=== PATIENT | male | born 1930 | race Caucasian/White ===

== ENCOUNTER 2016-12-11 11:27 | Inpatient (IN) | payer MEDICARE ==
[2016-12-11] MEDS ORDERED: NS 0.9% 1000 ML* 1,000 ML IV ONE ×2 (11:43→14:02)
[2016-12-11 12:11] LABS: Hematocrit 40 % (42-52); Hemoglobin 13.3 g/dl (14.0-18.0); Mean Corpuscular HGB Conc 33 g/dl (31-36); Mean Corpuscular Hemoglobin 29 pg (27-31); Mean Corpuscular Volume 89 fL (80-94); Mean Platelet Volume 8 um3 (7.4-10.4); Red Blood Count 4.54 10^6/ul (4.0-5.4); Red Cell Distribution Width 14 % (10.5-15); White Blood Count 19.5 10^3/ul (3.5-10.8)
[2016-12-11 12:26] LABS: Albumin 3.6 g/dL (3.2-5.2); BUN/Creatinine Ratio 16.1 (8-20); Calcium 8.4 mg/dL (8.6-10.3); EGFR African American 71.1 (>60); EGFR Non-African American 55.3 (>60); Globulin 2.9 g/dL (2-4); Potassium 3.6 mmol/L (3.5-5.0); Total Bilirubin 0.9 mg/dL (0.2-1.0); Total Protein 6.5 g/dL (6.4-8.9)
[2016-12-11 12:28] LABS: Troponin I 0.03 ng/mL (<0.04)
[2016-12-11 12:37] LABS: Add Diff/Slide Review? Slide Review Added; Comments Flag Yes
[2016-12-11 12:44] LABS: TSH (Thyroid Stimulating Horm) 1.18 mcIU/mL (0.34-5.60)
--- NOTE | 2016-12-11 13:35 | RAD ---
Indication: Confusion. CT of the brain was performed without IV contrast. Comparison is made with previous exam dated December 05, 2015. Ventricular structures are midline. No midline shift is noted. The extra-axial spaces are unremarkable. There is no evidence of intracranial mass or hemorrhage. No other high or low density lesions are identified. Periventricular lucency consistent with chronic ischemic White matter change is noted. No changes noted since December 05, 2015. IMPRESSION: Periventricular lucency consistent with chronic ischemic change. Age-appropriate atrophy. No intracranial mass or hemorrhage is noted.
--- NOTE | 2016-12-11 13:50 | RAD ---
Indication: Confusion and fever. Single frontal view of the chest performed at 1200 hours was reviewed. Comparison is made with previous exam dated June 02, 2016. Bibasilar infiltrate which may represent early pneumonia. No pneumothorax is noted. IMPRESSION: FINDINGS CONSISTENT WITH BIBASILAR EARLY PNEUMONIA.
[2016-12-11 14:13] LABS: Urine Bilirubin Negative (Negative); Urine Glucose Negative (Negative); Urine Nitrite Negative (Negative)
[2016-12-11] MEDS ORDERED: Levofloxacin 750 MG IVPREMIX(* 750 MG/150 ML BAG IVPB ONE (15:10)
[2016-12-11] MEDS ORDERED: Triamcinolone 0.025% OINT * 15 GM TUBE TOPICAL PRN (17:07)
[2016-12-11] MEDS ORDERED: Acetaminophen TAB* 325 MG PO PRN (17:07)
[2016-12-11] MEDS ORDERED: Dextrose 50% Syringe 50 ML* 25 GM/50 ML SYRINGE IV PUSH PRN (17:08)
[2016-12-11] MEDS: NS 0.9% 1000 ML* 1,000 ML IV SCH (18:00)
--- NOTE | 2016-12-11 18:02 | ED ---
Reynold Hudson Michael, scribed for Patrick Frankel MD on 12/11/16 at 1145 . Altered Mental Status - HPI Summary HPI Summary: 86 y/o male was BIBA to the ED presenting with AMS and a fever with a temperature of 100 per nurse. The pt was more confused today than normal and had an episode of diarrhea this morning. He was brought from [place]. The pt is a level 5 caveat. - History Of Current Complaint Chief Complaint: EDAltMentalStatus Stated Complaint: AMS Time Seen by Provider: 12/11/16 11:37 Hx Obtained From: EMS, Medical Records Hx From Patient Unobtainable Due To: Dementia Onset/Duration: Unknown Timing: Constant Severity Initially: Mild Severity Currently: Mild Character: Confusion Aggravating Factor(s): Unknown Alleviating Factor(s): Unknown Associated Signs And Symptoms: Positive: Fever - Allergies/Home Medications Allergies/Adverse Reactions: Allergies Allergy/AdvReac Type Severity Reaction Status Date / Time Lisinopril AdvReac Mild Coughing Verified 12/05/15 08:32 PMH/Surg Hx/FS Hx/Imm Hx Endocrine/Hematology History: Reports: Hx Diabetes Cardiovascular History: Reports: Hx Hypertension Denies: Hx Pacemaker/ICD History: Reports: Other Problems/Disorders - prostate ca, radiation Musculoskeletal History: Reports: Hx Back Problems - Fusion L4-S1, Other Musculoskeletal History - L total knee replacemtn, fusion S1, L4, L5 Denies: Hx Scoliosis Sensory History: Denies: Hx Hearing Aid Neurological History: Reports: Hx Dementia Psychiatric History: Reports: Other Psychiatric Issues/Disorders - alzheimers Denies: Hx Panic Disorder - Cancer History Cancer Type, 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 - Surgical History Surgery Procedure, Year, and Place: bilat knee replacements, back surgery L4- 5S1 fused, tonsillectomy, prostatectomy Infectious Disease History: No Infectious Disease History: Denies: Traveled Outside the [place] in Last 30 Days - Family History Known Family History: Positive: Cardiac Disease, Diabetes - Social History Occupation: Retired Lives: At [facility] Alcohol Use: None Substance Use Type: Reports: None Smoking Status (MU): Former Smoker Review of Systems - ROS Summary Review of Systems Summary: Patient is a level 5 caveat Positive: Fever Neurological: Other - AMS All Other Systems Reviewed And Are Negative: No Physical Exam - Summary Physical Exam Summary: Vital signs: reviewed General: Patient is comfortable lying in stretcher with no signs of distress HEENT: within normal limits Lungs: CTA B/L CVS: S1 & S2 present. No murmurs appreciated. ABDOMEN: Soft, non-tender. No signs of distention. No rebound no guarding, and no masses palpated. Bowel sounds are normal. EXTREMITIES: FROM in all major joints, no edema, no cyanosis or clubbing. NEURO: Alert but not oriented . No acute neurological deficits. Speech is normal and follows commands. SKIN: Dry and warm Triage Information Reviewed: Yes Vital Signs On Initial Exam: Initial Vitals Temp Pulse Resp BP Pulse Ox 100 F 99 16 104/58 94 12/11/16 11:30 12/11/16 11:30 12/11/16 11:30 12/11/16 11:30 12/11/16 11:30 Vital Signs Reviewed: Yes Completion Of Physical Exam Limited Due To: Dementia, Level 5 - Jaclyn Coma Scale Coma Scale Total: 14 Diagnostics - Vital Signs Vital Signs Temp Pulse Resp BP Pulse Ox 12/11/16 11:30 100 F 99 16 104/58 94 - Laboratory Result Diagrams: 12/11/16 12:02 12/11/16 12:02 Lab Statement: Any lab studies that have been ordered have been reviewed, and results considered in the medical decision making process. - Radiology CXR Xray Interpretation: Positive (See Comments) - FINDINGS CONSISTENT WITH BIBASILAR EARLY PNEUMONIA. Radiology Interpretation Completed By: Radiologist - CT Brain CT CT Interpretation: Positive (See Comments) - Periventricular lucency consistent with chronic ischemic change. Age-appropriate atrophy. No intracranial mass or hemorrhage is noted. CT Interpretation Completed By: Radiologist - EKG EK EKG Rhythm: Sinus Rhythm - 95 bpm EKG Interpretation: no st elevation Altered Mental Statu Course/Dx - Course Course Of Treatment: 86 y/o male was BIBA to the ED presenting with AMS and a fever with a temperature of 100 per nurse. The pt was more confused today than normal and had an episode of diarrhea this morning. He was brought from [place]. The pt is a level 5 caveat. The blood work shows a WBC of 19, BUN 20, glucose 204, slight anemia, and creatinine of 1.24. The Urine Analysis is negative for UTI. The CXR shows bibasilar early PNA. The Brain CT shows no intracrainial mass or hemorrhage. ED course, the paitent was given levofloxacin. In the CURB-65 for PNA the patient scored a 4 which is high risk, so he will be admitted. Dr. Campos accepts the admission at 1604. - Diagnoses Differential Diagnosis/HQI/PQRI: CVA, Other - UTI, CVA, Pneumonia Discharge Diagnoses: Bilateral pneumonia Discharge - Discharge Plan Condition: Stable Disposition: ADMITTED TO [facility] The documentation as recorded by the Reynold velazquez Michael accurately reflects the service I personally performed and the decisions made by , Patrick Frankel MD.
--- NOTE | 2016-12-11 18:49 | HP ---
HISTORY AND PHYSICAL: DATE OF ADMISSION: 12/11/16 PRIMARY CARE PHYSICIAN: Mohinder Ordaz MD CHIEF COMPLAINT: Confusion. HISTORY OF PRESENT ILLNESS: Mr. Snyder is an 86-year-old male with past medical history of Alzheimer's dementia, hypertension, hyperlipidemia, diabetes , TIA, moderate aortic stenosis, and prostate cancer who presents to the hospital from [facility] with increased confusion and fever. Due to the patient's advanced dementia, I am unable to obtain any history from him. History is obtained from nursing and the chart. It seems that the patient has had increased confusion over the past days. His daughter felt that he had been declining and has been more weak. The patient is usually clean shaven and in the past couple of days has been unshaven which is unusual for him. He possibly had a fall today. He denies any complaints presently. He is cooperative but confused. He reports no chest pain, cough, shortness of breath. PAST MEDICAL HISTORY: 1. Dementia. 2. Hypertension. 3. Hyperlipidemia. 4. Diabetes. 5. Prostate cancer. 6. TIA. 7. Moderate aortic stenosis. PAST SURGICAL HISTORY: 1. Left TKA. 2. Back surgery. 3. Tonsillectomy. HOME MEDICATIONS: 1. Losartan 25 mg by mouth daily. 2. Triamcinolone 1 application topical daily as needed for itching. 3. Donepezil 10 mg by mouth at bedtime. 4. Lipitor 10 mg by mouth at bedtime. 5. Tylenol 650 mg by mouth every 6 hours as needed for pain. 6. Docusate 100 mg by mouth daily. 7. Axona 1 powder by mouth daily. 8. Vitamin B12 at 500 mcg by mouth daily. 9. Linagliptin 5 mg by mouth daily. 10. Aspirin 81 mg by mouth daily. ALLERGIES: LISINOPRIL. FAMILY HISTORY: Unable to obtain. SOCIAL HISTORY: Unable to obtain aside from the patient being a resident of [facility]. REVIEW OF SYSTEMS: Unable to obtain. PHYSICAL EXAMINATION GENERAL: The patient is an elderly man lying in bed, in no apparent distress. VITAL SIGNS: On admission, temperature of 100, heart rate of 99, respiratory rate of 16, O2 saturation 94% on room air, blood pressure 104/58 with some subsequent hypertension. HEENT: Pupils equal, round and reactive to light and accommodation, anicteric sclerae. Dry mucous membranes. No cervical adenopathy. LUNGS: Not entirely cooperative with exam. I do appreciate some rales at the bases bilaterally. CARDIOVASCULAR: Regular rate and rhythm. S1 and S2 present. No murmurs, gallops, or rubs. ABDOMEN: Soft, nontender, nondistended. Bowel sounds positive. EXTREMITIES: No cyanosis, clubbing, or edema. NEUROLOGIC: The patient is alert, oriented to self only. Mumbles a lot of answers. Unable to tell me where he is, the year, the month of the day or why he is here. LABS AND DIAGNOSTICS: White blood cell count of 19.5, hematocrit of 40, platelets of 208, 91% neutrophils. Sodium 137, potassium 3.6, chloride 104, carbon dioxide of 24, BUN 20, creatinine of 1.24, glucose of 204, lactic acid of 2.8, calcium of 8.4. LFTs within normal limits. Troponin of 0.03. TSH of 1.18. Urinalysis with 1+ ketones, otherwise negative. CT of the head shows no acute disease. Chest x-ray shows infiltrates in the bilateral bases. Personally reviewed the EKG, shows normal sinus rhythm. ASSESSMENT AND PLAN: Community acquired pneumonia in an 86-year-old male with past medical history of Alzheimer's dementia, hypertension, hyperlipidemia, diabetes, transient ischemic attack, moderate aortic stenosis. 1. Community acquired pneumonia. The patient has a significant leukocytosis. He is not currently requiring any oxygen. However, he has a low-grade fever and is mildly hypotensive. He received Levaquin in the emergency department. We will continue the patient on ceftriaxone and azithromycin. We will check strep and legionella urine antigens. Recheck a CBC in the morning. 2. Dementia. Continue the patient's home donepezil. 3. Hypertension. We will hold home losartan for now. 4. Acute kidney injury. Creatinine is up slightly from patient's baseline. Receiving some IV fluid. We will recheck in the morning. 5. Mild lactic acidosis. We will recheck after IV fluid resuscitation. 6. Hyperlipidemia. Continue home atorvastatin. 7. History of transient ischemic attack. Continue aspirin 81 mg by mouth daily. 8. Diabetes. Hold home linagliptin. We will write for a Humalog insulin sliding scale and blood glucoses q.a.c. and h.s. 9. DVT prophylaxis. Heparin subcu. 10. Code status. The patient has no documentation from [facility]. He will be on full code by default. TIME SPENT: Total time spent on this admission was 40 minutes with over half the time spent [id number] with the patient in counseling and coordinating care. CC: Mohinder Ordaz MD* [id number]/[facility] #: [id number] MTDD
[2016-12-11] MEDS: Donepezil TAB* 5 MG PO SCH (21:54)
[2016-12-11] MEDS: Atorvastatin* 10 MG TAB PO SCH (21:54)
[2016-12-11] MEDS: Heparin VIAL(*) 5000 UNITS/ML VIAL (FIVE THOUSAND) SUBCUT SCH (21:55)
[2016-12-12 06:08] LABS: Hematocrit 36 % (42-52); Mean Corpuscular HGB Conc 33 g/dl (31-36); Mean Corpuscular Hemoglobin 30 pg (27-31); Mean Corpuscular Volume 89 fL (80-94); Mean Platelet Volume 9 um3 (7.4-10.4); Red Blood Count 4.05 10^6/ul (4.0-5.4); Red Cell Distribution Width 14 % (10.5-15); White Blood Count 14.8 10^3/ul (3.5-10.8)
[2016-12-12] MEDS: Heparin VIAL(*) 5000 UNITS/ML VIAL (FIVE THOUSAND) SUBCUT SCH ×3 (06:20→20:46)
[2016-12-12 06:24] LABS: BUN/Creatinine Ratio 17.8 (8-20); Calcium 8.2 mg/dL (8.6-10.3); EGFR African American 102.9 (>60); Potassium 3.7 mmol/L (3.5-5.0)
[2016-12-12] MEDS: Insulin LISPRO* 1 UNITS UNIT SUBCUT SCH ×3 (08:49→17:12)
[2016-12-12] MEDS: Docusate CAP* 100 MG PO SCH (10:04)
[2016-12-12] MEDS: Cyanocobalamin TAB* 500 MCG PO SCH (10:04)
[2016-12-12] MEDS: Aspirin EC Low Dose* 81 MG TAB.EC PO SCH (10:04)
[2016-12-12] MEDS: NS 0.9% 1000 ML* 1,000 ML IV SCH (10:05)
[2016-12-12] MEDS: cefTRIAXone VIAL(*) 1,000 MG in NS 0.9% 50 ML* 50 ML IVPB SCH (17:09)
--- NOTE | 2016-12-12 17:21 | PN ---
Subjective Date of Service: 12/12/16 Interval History: . pt has noted confusion which could be his baseline Alzheimers. He is alert in NAD. Pt eating little for meals. No cough noted. He is noted to have a 101 fever on my exam and when asked if he feels like he has a fever he states 'no". Objective Active Medications: Acetaminophen (Tylenol Tab*) 650 mg PO Q6H PRN PRN Reason: TEMP > 100 or PAIN Aspirin (Aspirin Ec Low Dose*) 81 mg PO DAILY [facility] Last Admin: 12/12/16 10:04 Dose: 81 mg Atorvastatin Calcium (Lipitor*) 10 mg PO BEDTIME [facility] Last Admin: 12/11/16 21:54 Dose: 10 mg Cyanocobalamin (Vitamin B12 Tab*) 500 mcg PO DAILY [facility] Last Admin: 12/12/16 10:04 Dose: 500 mcg Dextrose (D50w Syringe 50 Ml*) 12.5 gm IV PUSH .FOR FS < 60 - SS PRN PRN Reason: FS < 60 Docusate Sodium (Colace Cap*) 100 mg PO DAILY [facility] Last Admin: 12/12/16 10:04 Dose: 100 mg Donepezil HCl (Aricept Tab*) 10 mg PO BEDTIME [facility] Last Admin: 12/11/16 21:54 Dose: 10 mg Heparin Sodium (Porcine) (Heparin Vial(*)) 5,000 units SUBCUT Q8HR [facility] Last Admin: 12/12/16 12:51 Dose: 5,000 units Ceftriaxone Sodium 1,000 mg/ (Sodium Chloride) 50 mls @ 200 mls/hr IVPB Q24H [facility] Last Admin: 12/12/16 17:09 Dose: 200 mls/hr Azithromycin 500 mg/ Sodium (Chloride) 250 mls @ 250 mls/hr IVPB Q24H [facility] Sodium Chloride (Ns 0.9% 1000 Ml*) 1,000 mls @ 75 mls/hr IV PER RATE [facility] Last Admin: 12/12/16 10:05 Dose: 75 mls/hr Insulin Human Lispro (Humalog*) 0 - 10 units SUBCUT AC [facility] PRN Reason: Protocol Last Admin: 12/12/16 17:12 Dose: Not Given Triamcinolone Acetonide (Triamcinolone 0.025% Oint *) 1 applic TOPICAL DAILY PRN PRN Reason: ITCHING Vital Signs 12/11/16 12/11/16 12/11/16 17:17 17:31 18:00 Temperature 99.1 F 98.5 F Pulse Rate 82 92 Respiratory 17 16 Rate Blood Pressure 129/71 107/56 120/57 (mmHg) O2 Sat by Pulse 98 Oximetry 12/11/16 12/11/16 12/11/16 19:58 20:00 22:23 Temperature 97.3 F Pulse Rate 96 Respiratory 16 16 18 Rate Blood Pressure 110/53 (mmHg) O2 Sat by Pulse 94 Oximetry 12/11/16 12/12/16 12/12/16 23:28 03:48 07:38 Temperature 98.2 F 99.2 F 97.9 F Pulse Rate 88 96 97 Respiratory 16 18 16 Rate Blood Pressure 121/58 158/77 145/83 (mmHg) O2 Sat by Pulse 97 94 97 Oximetry 12/12/16 12/12/16 12/12/16 08:00 11:07 14:44 Temperature 100.6 F 100.6 F Pulse Rate 94 92 Respiratory 17 18 Rate Blood Pressure 140/81 (mmHg) O2 Sat by Pulse 95 Oximetry 12/12/16 15:05 Temperature 101.1 F Pulse Rate 93 Respiratory 20 Rate Blood Pressure 151/87 (mmHg) O2 Sat by Pulse 97 Oximetry Oxygen Devices in Use Now: None Appearance: eldelry male laying in bed in NAD. alert to self but not to place or time Eyes: No Scleral Icterus, PERRLA Ears/Nose/Mouth/Throat: NL Teeth, Lips, Gums, Mucous Membranes Moist Neck: NL Appearance and Movements; NL JVP Respiratory: Symmetrical Chest Expansion and Respiratory Effort, - - crackles to bases b/l otherwise good areation throughout Cardiovascular: NL Sounds; No Murmurs; No JVD, RRR, No Edema Abdominal: NL Sounds; No Tenderness; No Distention Extremities: No Edema, No Clubbing, Cyanosis Skin: No Rash or Ulcers, No Nodules or Sclerosis, - Neurological: Alert and Oriented x 3, NL Sensation, NL Gait, NL Muscle Strength and Tone Lines/Tubes/Other Access: Clean, Dry and Intact Peripheral IV Nutrition: Taking PO's Result Diagrams: 12/12/16 05:36 12/12/16 05:36 Microbiology and Other Data: Microbiology 12/11/16 17:10 Legionella Urinary Antigen - Final Urine Negative Legionella Streptococcus pneumoniae Ag Screen - Final Negative S. pneumo Antigen 12/11/16 19:00 Nasal Screen MRSA (PCR)(MONA) - Final Nasal Mrsa Negative Assess/Plan/Problems-Billing Assessment: Mr. Snyder is a 86 yo male with a PMH of alzheimers dementais, HTN , HLD, DM, TIA and moderate who presneted from [facility] with increased confusion and fever. - Patient Problems (1) CAP (community acquired pneumonia) Comment: - sepsis on admission with elevated lactic, leukocytosis, hypotension, AMS,now resolved. - chest xray showing early bibasilar pneumonia - fever 101 today, Leukocytosis trending down. urinalysis negative. lactic acid resolved - negative urine antigens s. pneum and legionella - Sputum and blood cx pending - continue ceftriaxone, gentle IVFs - recheck labs in am (2) Acute kidney injury Comment: - resolved with IV fluids (3) Alzheimer's dementia Comment: - continue aricept (4) Diabetes mellitus Comment: - controlled. - FSBG ACHS with lispro SS (5) HLD (hyperlipidemia) Comment: - continue atorvastatin (6) Hypertension Comment: - hold losartan (7) DVT prophylaxis Comment: HSQ Status and Disposition: inpatient with sepsis secondary to pneumonia. tried to call daughter with no answer, did not leave message as there was noted identifying voicemail.
[2016-12-12] MEDS ORDERED: NS 0.9% 1000 ML* 1,000 ML IV SCH (17:30)
[2016-12-12] MEDS: Azithromycin IV(*) 500 MG in NS 0.9% 250 ML* 250 ML IVPB SCH (17:59)
[2016-12-12] MEDS: Donepezil TAB* 5 MG PO SCH (20:43)
[2016-12-12] MEDS: Atorvastatin* 10 MG TAB PO SCH (20:44)
[2016-12-13] MEDS: Heparin VIAL(*) 5000 UNITS/ML VIAL (FIVE THOUSAND) SUBCUT SCH ×3 (06:01→21:27)
[2016-12-13 07:07] LABS: Hematocrit 36 % (42-52); Mean Corpuscular HGB Conc 34 g/dl (31-36); Mean Corpuscular Hemoglobin 30 pg (27-31); Mean Corpuscular Volume 88 fL (80-94); Mean Platelet Volume 8 um3 (7.4-10.4); Red Blood Count 4.06 10^6/ul (4.0-5.4); Red Cell Distribution Width 14 % (10.5-15); White Blood Count 12.6 10^3/ul (3.5-10.8)
[2016-12-13 07:24] LABS: BUN/Creatinine Ratio 13.5 (8-20); Calcium 8.3 mg/dL (8.6-10.3); EGFR Non-African American 100.3 (>60); Potassium 3.4 mmol/L (3.5-5.0)
[2016-12-13] MEDS: Insulin LISPRO* 1 UNITS UNIT SUBCUT SCH ×3 (07:30→17:40)
[2016-12-13] MEDS ORDERED: Potassium Chlor TAB* 20 MEQ TAB.ER PO ONE (07:45)
[2016-12-13] MEDS: Cyanocobalamin TAB* 500 MCG PO SCH (08:57)
[2016-12-13] MEDS: Docusate CAP* 100 MG PO SCH (08:57)
[2016-12-13] MEDS: Aspirin EC Low Dose* 81 MG TAB.EC PO SCH (08:57)
--- NOTE | 2016-12-13 16:12 | PN ---
Subjective Date of Service: 12/13/16 Interval History: patient reports he "feels fine". noted confusion which is his baseline. Denies cough, sob or CP. Objective Active Medications: Acetaminophen (Tylenol Tab*) 650 mg PO Q6H PRN PRN Reason: TEMP > 100 or PAIN Aspirin (Aspirin Ec Low Dose*) 81 mg PO DAILY [facility] Last Admin: 12/13/16 08:57 Dose: 81 mg Atorvastatin Calcium (Lipitor*) 10 mg PO BEDTIME [facility] Last Admin: 12/12/16 20:44 Dose: 10 mg Cyanocobalamin (Vitamin B12 Tab*) 500 mcg PO DAILY [facility] Last Admin: 12/13/16 08:57 Dose: 500 mcg Dextrose (D50w Syringe 50 Ml*) 12.5 gm IV PUSH .FOR FS < 60 - SS PRN PRN Reason: FS < 60 Docusate Sodium (Colace Cap*) 100 mg PO DAILY [facility] Last Admin: 12/13/16 08:57 Dose: 100 mg Donepezil HCl (Aricept Tab*) 10 mg PO BEDTIME [facility] Last Admin: 12/12/16 20:43 Dose: 10 mg Heparin Sodium (Porcine) (Heparin Vial(*)) 5,000 units SUBCUT Q8HR [facility] Last Admin: 12/13/16 12:38 Dose: 5,000 units Ceftriaxone Sodium 1,000 mg/ (Sodium Chloride) 50 mls @ 200 mls/hr IVPB Q24H [facility] Last Admin: 12/12/16 17:09 Dose: 200 mls/hr Azithromycin 500 mg/ Sodium (Chloride) 250 mls @ 250 mls/hr IVPB Q24H [facility] Last Admin: 12/12/16 17:59 Dose: 250 mls/hr Sodium Chloride (Ns 0.9% 1000 Ml*) 1,000 mls @ 50 mls/hr IV .PER RATE [facility] Last Admin: 12/12/16 18:19 Dose: Not Given Insulin Human Lispro (Humalog*) 0 - 10 units SUBCUT AC [facility] PRN Reason: Protocol Last Admin: 12/13/16 12:38 Dose: 2 units Triamcinolone Acetonide (Triamcinolone 0.025% Oint *) 1 applic TOPICAL DAILY PRN PRN Reason: ITCHING Vital Signs 12/12/16 12/12/16 12/13/16 20:11 23:36 03:24 Temperature 98.0 F 97.9 F Pulse Rate 101 91 Respiratory 16 16 18 Rate Blood Pressure 145/87 179/88 (mmHg) O2 Sat by Pulse 95 93 Oximetry 12/13/16 12/13/16 07:46 08:00 Temperature 97.9 F Pulse Rate 91 Respiratory 16 16 Rate Blood Pressure 137/65 (mmHg) O2 Sat by Pulse 93 Oximetry Oxygen Devices in Use Now: None Appearance: 86 yo male laying in bed in NAD. Confused, noted dementia. alert to self but not to place and time Eyes: No Scleral Icterus, PERRLA Ears/Nose/Mouth/Throat: NL Teeth, Lips, Gums, Mucous Membranes Moist Respiratory: Symmetrical Chest Expansion and Respiratory Effort, Clear to Auscultation Cardiovascular: NL Sounds; No Murmurs; No JVD, RRR, No Edema Abdominal: NL Sounds; No Tenderness; No Distention Extremities: No Edema, No Clubbing, Cyanosis Skin: No Rash or Ulcers, No Nodules or Sclerosis Neurological: NL Sensation, NL Muscle Strength and Tone, - - alert, confused - appears to have significant dementia at baseline Lines/Tubes/Other Access: Clean, Dry and Intact Peripheral IV Nutrition: Taking PO's Result Diagrams: 12/13/16 06:53 12/13/16 06:53 Microbiology and Other Data: Microbiology 12/11/16 17:10 Legionella Urinary Antigen - Final Urine Negative Legionella Streptococcus pneumoniae Ag Screen - Final Negative S. pneumo Antigen 12/11/16 19:00 Nasal Screen MRSA (PCR)(MONA) - Final Nasal Mrsa Negative Assess/Plan/Problems-Billing Assessment: Mr. Snyder is a 86 yo male with a PMH of alzheimers dementais, HTN , HLD, DM, TIA and moderate who presneted from [facility] with increased confusion and fever. - Patient Problems (1) CAP (community acquired pneumonia) Comment: - sepsis on admission with elevated lactic, leukocytosis, hypotension, AMS,now resolved. Much improvement from admisison. Now on room air. - chest xray showing early bibasilar pneumonia. - fevers of 101 now afebrile > 24 hours, Leukocytosis trending down. urinalysis negative. lactic acid resolved - negative urine antigens s. pneum and legionella - Sputum and blood cx pending - PT - continue ceftriaxone, azithromycin - recheck labs in am (2) Acute kidney injury Comment: - resolved with IV fluids (3) Electrolyte abnormality Comment: - Replace K+, check magnesium (4) Alzheimer's dementia Comment: - continue aricept (5) Diabetes mellitus Comment: - controlled. - FSBG ACHS with lispro SS (6) HLD (hyperlipidemia) Comment: - continue atorvastatin (7) Hypertension Comment: - Restart losartan (8) DVT prophylaxis Comment: HSQ Status and Disposition: inpatient with sepsis secondary to pneumonia. tried to call daughter with no answer again today, did not leave message as there was noted identifying voicemail. possibly ready for DC tomorrow.
--- NOTE | 2016-12-13 16:49 | RAD ---
INDICATION: Pneumonia. COMPARISON: Comparison is made with prior checks x-ray studies from June 02, 2016 and December 11, 2016. TECHNIQUE: Dual-energy PA and lateral views of the chest were obtained. FINDINGS: The heart is within normal limits in size. Mediastinal and hilar contours appear within normal limits. There are patchy infiltrates at both lung bases which appear to have progressed slightly from the prior exam. In addition there is a small nodular density which projects over the left upper lobe measuring 3 mm in size which is unchanged from prior studies and 2 faint nodular densities measuring approximately 8 mm in size each which project at the left lung base which are not well seen on the prior exams. IMPRESSION: 1. BIBASILAR INFILTRATES DEMONSTRATING SLIGHT PROGRESSION. 2. POSSIBLE LEFT BASILAR PULMONARY NODULES CONSIDER A NONCONTRAST CT OF THE CHEST FOR FURTHER EVALUATION.
[2016-12-13] MEDS ORDERED: Losartan TAB* 25 MG PO ONE (16:51)
[2016-12-13] MEDS: cefTRIAXone VIAL(*) 1,000 MG in NS 0.9% 50 ML* 50 ML IVPB SCH (17:36)
[2016-12-13] MEDS: Azithromycin IV(*) 500 MG in NS 0.9% 250 ML* 250 ML IVPB SCH (18:08)
[2016-12-13] MEDS: Donepezil TAB* 5 MG PO SCH (21:23)
[2016-12-13] MEDS: Atorvastatin* 10 MG TAB PO SCH (21:23)
[2016-12-14] MEDS: Heparin VIAL(*) 5000 UNITS/ML VIAL (FIVE THOUSAND) SUBCUT SCH ×3 (06:17→20:38)
--- NOTE | 2016-12-14 08:24 | RAD ---
HISTORY: Chest nodule on x-ray COMPARISONS: Chest x-ray dated December 13, 2016, PET/CT dated August 24, 2010 TECHNIQUE: Multiple contiguous axial CT scans of the chest were obtained without intravenous contrast. Coronal and sagittal multiplanar reformations are also submitted for review. FINDINGS: NECK AND THYROID: There is a 0.6 cm nodule of the left thyroid CHEST WALL: There is no lower cervical, axillary, or supraclavicular lymphadenopathy by size criteria. HEART AND PERICARDIUM: Coronary and valvular cardiac calcifications are noted. AORTA AND PULMONARY VASCULATURE: There is calcification of the thoracic aorta. The pulmonary vasculature is unremarkable. MEDIASTINUM: There is no mediastinal lymphadenopathy by size criteria. MIKAYLA: There is no hilar lymphadenopathy by size criteria. AIRWAY AND ESOPHAGUS: The airway is unremarkable, without endobronchial filling defect. The esophagus is grossly normal. LUNG PARENCHYMA: There is patchy nodular ground glass opacification diffusely throughout both lungs, with more confluent opacities in the lung bases bilaterally. There are calcified granulomas bilaterally. PLEURA: There are trace bilateral pleural effusions UPPER ABDOMEN: The upper abdomen is unremarkable. BONES AND SOFT TISSUES: Mild degenerative changes are noted OTHER: None. IMPRESSION: THERE IS PATCHY MULTIFOCAL AND CONFLUENT GROUNDGLASS OPACIFICATION AND CONSOLIDATION OF THE LUNGS BILATERALLY. THE APPEARANCE IS SUGGESTIVE OF AN INFECTIOUS OR INFLAMMATORY PROCESS. RECOMMEND FOLLOW-UP UNTIL RESOLUTION TO EXCLUDE UNDERLYING PULMONARY PARENCHYMAL PATHOLOGY
[2016-12-14] MEDS: Losartan TAB* 25 MG PO SCH (08:52)
[2016-12-14] MEDS: Docusate CAP* 100 MG PO SCH (08:52)
[2016-12-14] MEDS: Aspirin EC Low Dose* 81 MG TAB.EC PO SCH (08:52)
[2016-12-14] MEDS: Cyanocobalamin TAB* 500 MCG PO SCH (08:52)
[2016-12-14] MEDS: Insulin LISPRO* 1 UNITS UNIT SUBCUT SCH ×3 (08:52→17:45)
[2016-12-14 09:57] LABS: Hematocrit 37 % (42-52); Hemoglobin 12.6 g/dl (14.0-18.0); Mean Corpuscular HGB Conc 34 g/dl (31-36); Mean Corpuscular Hemoglobin 30 pg (27-31); Mean Corpuscular Volume 88 fL (80-94); Mean Platelet Volume 8 um3 (7.4-10.4); Red Blood Count 4.27 10^6/ul (4.0-5.4); Red Cell Distribution Width 14 % (10.5-15); White Blood Count 9.7 10^3/ul (3.5-10.8)
[2016-12-14 10:06] LABS: BUN/Creatinine Ratio 14.7 (8-20); Calcium 8.6 mg/dL (8.6-10.3); EGFR Non-African American 98.7 (>60); Magnesium 1.9 mg/dL (1.9-2.7); Potassium 3.5 mmol/L (3.5-5.0)
--- NOTE | 2016-12-14 15:57 | PN ---
Subjective Date of Service: 12/14/16 Interval History: Patient seen and examined at bedside. Denies fever, chills, shortness of breath , chest discomfort, N/V/D. Pt is anxious to get back home. Family History: Unchanged from Admission Social History: Unchanged from Admission Past Medical History: Unchanged from Admission Objective Active Medications: Acetaminophen (Tylenol Tab*) 650 mg PO Q6H PRN Reason: TEMP > 100 or PAIN Aspirin (Aspirin Ec Low Dose*) 81 mg PO DAILY MARYAM Atorvastatin Calcium (Lipitor*) 10 mg PO BEDTIME MARYAM Cyanocobalamin (Vitamin B12 Tab*) 500 mcg PO DAILY MARYAM Dextrose (D50w Syringe 50 Ml*) 12.5 gm IV PUSH .FOR FS < 60 - SS PRN Reason: FS < 60 Docusate Sodium (Colace Cap*) 100 mg PO DAILY MARYAM Donepezil HCl (Aricept Tab*) 10 mg PO BEDTIME MARYAM Heparin Sodium (Porcine) (Heparin Vial(*)) 5,000 units SUBCUT Q8HR MARYAM Ceftriaxone Sodium 1,000 mg/ (Sodium Chloride) 50 mls @ 200 mls/hr IVPB Q24H MARYAM Azithromycin 500 mg/ Sodium (Chloride) 250 mls @ 250 mls/hr IVPB Q24H MARYAM Insulin Human Lispro (Humalog*) 0 - 10 units SUBCUT AC MARYAM Reason: Protocol Losartan Potassium (Cozaar Tab*) 25 mg PO DAILY MARYAM Triamcinolone Acetonide (Triamcinolone 0.025% Oint *) 1 applic TOPICAL DAILY PRN Reason: ITCHING Vital Signs 12/13/16 12/13/16 12/13/16 19:23 23:33 23:36 Temperature 97.7 F 97.5 F Pulse Rate 96 86 Respiratory 17 19 18 Rate Blood Pressure 132/63 146/78 (mmHg) O2 Sat by Pulse 95 96 Oximetry 12/14/16 12/14/16 07:26 08:00 Temperature 97.4 F Pulse Rate 90 Respiratory 20 20 Rate Blood Pressure 155/86 (mmHg) O2 Sat by Pulse 91 Oximetry Oxygen Devices in Use Now: None Appearance: NAD, laying in bed Eyes: No Scleral Icterus, PERRLA Ears/Nose/Mouth/Throat: NL Teeth, Lips, Gums, Mucous Membranes Moist Neck: NL Appearance and Movements; NL JVP, Trachea Midline Respiratory: Symmetrical Chest Expansion and Respiratory Effort, Clear to Auscultation Cardiovascular: NL Sounds; No Murmurs; No JVD, RRR Abdominal: NL Sounds; No Tenderness; No Distention Extremities: No Edema Skin: No Rash or Ulcers Neurological: NL Muscle Strength and Tone, - - Alert and Oriented to Person and Place, confused Lines/Tubes/Other Access: Clean, Dry and Intact Peripheral IV - site benign Nutrition: Taking PO's Result Diagrams: 12/14/16 09:33 12/14/16 09:33 Microbiology and Other Data: Microbiology 12/11/16 17:10 Legionella Urinary Antigen - Final Urine Negative Legionella Streptococcus pneumoniae Ag Screen - Final Negative S. pneumo Antigen 12/11/16 19:00 Nasal Screen MRSA (PCR)(MONA) - Final Nasal Mrsa Negative Assess/Plan/Problems-Billing Assessment: Mr. Snyder is a 86 yo male with a PMH of alzheimers dementia, HTN, HLD, DM, TIA and moderate who presented from [facility] with increased confusion and fever. - Patient Problems (1) CAP (community acquired pneumonia) Code(s): J18.9 - PNEUMONIA, UNSPECIFIED ORGANISM SNOMED Code(s): 019410361 Comment: - Sepsis on admission with elevated lactic, leukocytosis, hypotension, AMS. Now resolved. - Now on room air - Chest xray showing early bibasilar pneumonia. - Afebrile > 24 hours, Leukocytosis resolved. Urinalysis negative. Lactic acidosis resolved - Negative urine antigens s. pneum and legionella - Continue ceftriaxone, azithromycin (2) Acute kidney injury Code(s): N17.9 - ACUTE KIDNEY FAILURE, UNSPECIFIED SNOMED Code(s): 79079075 Comment: - Resolved with IV fluids (3) Electrolyte abnormality Code(s): E87.8 - OTH DISORDERS OF ELECTROLYTE AND FLUID BALANCE, NEC SNOMED Code(s): 100474710 Comment: - Hypokalemia, resolved (4) Alzheimer's dementia Code(s): G30.9 - ALZHEIMER'S DISEASE, UNSPECIFIED; F02.80 - DEMENTIA IN OTH DISEASES CLASSD ELSWHR W/O BEHAVRL DISTURB SNOMED Code(s): 245143195998534 Comment: - Continue aricept (5) Diabetes mellitus Code(s): E11.9 - TYPE 2 DIABETES MELLITUS WITHOUT COMPLICATIONS SNOMED Code(s) : 07064772 Comment: - Controlled. - FSBG ACHS with lispro SS (6) HLD (hyperlipidemia) Code(s): E78.5 - HYPERLIPIDEMIA, UNSPECIFIED SNOMED Code(s): 93108400 Comment: - Continue atorvastatin (7) Hypertension Code(s): I10 - ESSENTIAL (PRIMARY) HYPERTENSION SNOMED Code(s): 96434842 Comment: - Continue losartan (8) DVT prophylaxis Code(s): YGY3000 - SNOMED Code(s): 487955370 Comment: - HSQ (9) Full code status Code(s): Z78.9 - OTHER SPECIFIED HEALTH STATUS SNOMED Code(s): 813269001 Status and Disposition: Inpatient with sepsis secondary to pneumonia. Will plan for discharge back to [facility] in the AM.
[2016-12-14] MEDS: Azithromycin IV(*) 500 MG in NS 0.9% 250 ML* 250 ML IVPB SCH (17:47)
[2016-12-14] MEDS: cefTRIAXone VIAL(*) 1,000 MG in NS 0.9% 50 ML* 50 ML IVPB SCH (17:47)
[2016-12-14] MEDS: Donepezil TAB* 5 MG PO SCH (20:38)
[2016-12-14] MEDS: Atorvastatin* 10 MG TAB PO SCH (20:38)
[2016-12-15] MEDS: Heparin VIAL(*) 5000 UNITS/ML VIAL (FIVE THOUSAND) SUBCUT SCH ×2 (05:24→15:08)
[2016-12-15 07:49] VITALS: BP 149/90
[2016-12-15] MEDS: Aspirin EC Low Dose* 81 MG TAB.EC PO SCH (08:37)
[2016-12-15] MEDS: Losartan TAB* 25 MG PO SCH (08:37)
[2016-12-15] MEDS: Cyanocobalamin TAB* 500 MCG PO SCH (08:38)
[2016-12-15] MEDS: Insulin LISPRO* 1 UNITS UNIT SUBCUT SCH ×2 (08:38→12:16)
[2016-12-15] MEDS: Docusate CAP* 100 MG PO SCH (08:38)
--- NOTE | 2016-12-15 09:06 | PN ---
Subjective Date of Service: 12/15/16 Interval History: Patient seen and examined at bedside. Pt states that he is feeling well. Denies fever, chills, shortness of breath, chest discomfort, N/V/D. Pt is anxious to get home today. Family History: Unchanged from Admission Social History: Unchanged from Admission Past Medical History: Unchanged from Admission Objective Active Medications: Acetaminophen (Tylenol Tab*) 650 mg PO Q6H PRN Reason: TEMP > 100 or PAIN Aspirin (Aspirin Ec Low Dose*) 81 mg PO DAILY MARYAM Atorvastatin Calcium (Lipitor*) 10 mg PO BEDTIME MARYAM Cyanocobalamin (Vitamin B12 Tab*) 500 mcg PO DAILY MARYAM Dextrose (D50w Syringe 50 Ml*) 12.5 gm IV PUSH .FOR FS < 60 - SS PRN Reason: FS < 60 Docusate Sodium (Colace Cap*) 100 mg PO DAILY MARYAM Donepezil HCl (Aricept Tab*) 10 mg PO BEDTIME MARYAM Heparin Sodium (Porcine) (Heparin Vial(*)) 5,000 units SUBCUT Q8HR MARYAM Ceftriaxone Sodium 1,000 mg/ (Sodium Chloride) 50 mls @ 200 mls/hr IVPB Q24H MARYAM Azithromycin 500 mg/ Sodium (Chloride) 250 mls @ 250 mls/hr IVPB Q24H MARYAM Insulin Human Lispro (Humalog*) 0 - 10 units SUBCUT AC MARYAM Reason: Protocol Losartan Potassium (Cozaar Tab*) 25 mg PO DAILY MARYAM Triamcinolone Acetonide (Triamcinolone 0.025% Oint *) 1 applic TOPICAL DAILY PRN Reason: ITCHING Vital Signs 12/14/16 12/14/16 12/14/16 15:15 21:45 23:22 Temperature 97.6 F 97.3 F Pulse Rate 85 84 Respiratory 16 18 16 Rate Blood Pressure 149/80 158/89 (mmHg) O2 Sat by Pulse 95 96 Oximetry 12/15/16 07:22 Temperature 97.6 F Pulse Rate 86 Respiratory 16 Rate Blood Pressure 149/90 (mmHg) O2 Sat by Pulse 94 Oximetry Oxygen Devices in Use Now: None Appearance: NAD, sitting up in a chair. Eyes: No Scleral Icterus, PERRLA Ears/Nose/Mouth/Throat: NL Teeth, Lips, Gums, Mucous Membranes Moist Neck: NL Appearance and Movements; NL JVP, Trachea Midline Respiratory: Symmetrical Chest Expansion and Respiratory Effort, Clear to Auscultation - , diminished. Cardiovascular: NL Sounds; No Murmurs; No JVD, RRR Extremities: No Edema Skin: No Rash or Ulcers Neurological: NL Muscle Strength and Tone, - - Alert and Oriented to self, confused Nutrition: Taking PO's Result Diagrams: 12/14/16 09:33 12/14/16 09:33 Microbiology and Other Data: Microbiology 12/11/16 17:10 Legionella Urinary Antigen - Final Urine Negative Legionella Streptococcus pneumoniae Ag Screen - Final Negative S. pneumo Antigen 12/11/16 19:00 Nasal Screen MRSA (PCR)(MONA) - Final Nasal Mrsa Negative Assess/Plan/Problems-Billing Assessment: Mr. Snyder is a 86 yo male with a PMH of alzheimers dementia, HTN, HLD, DM, TIA and moderate who presented from [facility] with increased confusion and fever. - Patient Problems (1) CAP (community acquired pneumonia) Code(s): J18.9 - PNEUMONIA, UNSPECIFIED ORGANISM SNOMED Code(s): 238647460 Comment: - Sepsis on admission with elevated lactic, leukocytosis, hypotension, AMS. Now resolved. - Now on room air - Chest xray showing early bibasilar pneumonia. - Afebrile > 24 hours, Leukocytosis resolved. Urinalysis negative. Lactic acidosis resolved - Negative urine antigens s. pneum and legionella - Will change ceftriaxone and azithromycin to oral medications (2) Acute kidney injury Code(s): N17.9 - ACUTE KIDNEY FAILURE, UNSPECIFIED SNOMED Code(s): 25921371 Comment: - Resolved with IV fluids (3) Electrolyte abnormality Code(s): E87.8 - OTH DISORDERS OF ELECTROLYTE AND FLUID BALANCE, NEC SNOMED Code(s): 568888279 Comment: - Hypokalemia, resolved (4) Alzheimer's dementia Code(s): G30.9 - ALZHEIMER'S DISEASE, UNSPECIFIED; F02.80 - DEMENTIA IN OTH DISEASES CLASSD ELSWHR W/O BEHAVRL DISTURB SNOMED Code(s): 678719429123665 Comment: - Continue aricept (5) Diabetes mellitus Code(s): E11.9 - TYPE 2 DIABETES MELLITUS WITHOUT COMPLICATIONS SNOMED Code(s) : 44304337 Comment: - Controlled. (6) HLD (hyperlipidemia) Code(s): E78.5 - HYPERLIPIDEMIA, UNSPECIFIED SNOMED Code(s): 97471283 Comment: - Continue atorvastatin (7) Hypertension Code(s): I10 - ESSENTIAL (PRIMARY) HYPERTENSION SNOMED Code(s): 81379673 Comment: - Continue losartan (8) DVT prophylaxis Code(s): JKX0322 - SNOMED Code(s): 226988058 Comment: (9) Full code status Code(s): Z78.9 - OTHER SPECIFIED HEALTH STATUS SNOMED Code(s): 547200018 Status and Disposition: Inpatient with sepsis secondary to pneumonia. Discharge back to [place] this morning.
--- NOTE | 2016-12-16 01:19 | DS ---
DISCHARGE SUMMARY:* ADDENDUM: DISCHARGE PLAN: As far as the patient's CT scan showing patchy multifocal and confluent ground-glass opacification and consolidation of the lungs bilaterally , I recommend the patient have followup imaging once his pneumonia has resolved to rule out any underlying pulmonary parenchymal pathology. BELLA BLANC, BALIJT [id number]/[facility] #: [id number] [facility] CENTEREvy
--- NOTE | 2016-12-16 01:27 | DS ---
ADDENDUM NOW INCLUDED ON THIS REPORT DISCHARGE/ SUMMARY: DATE OF ADMISSION: 12/11/16 DATE OF DISCHARGE: 12/15/16 ATTENDING PHYSICIAN: Vlad Brown MD * (DICTATED BY CARLOS GUTIERREZ NP) PRIMARY CARE PHYSICIAN: Mohinder Ordaz MD PRIMARY DISCHARGE DIAGNOSES: 1. Community-acquired pneumonia. 2. Acute kidney injury. 3. Mild lactic acidosis. SECONDARY DIAGNOSES: 1. Dementia. 2. Hypertension. 3. Hyperlipidemia. 4. History of transient ischemic attack. 5. Diabetes mellitus. STUDIES WHILE IN THE HOSPITAL: 1. Brain CT on 12/11/16. Radiologist Impression: Periventricular lucency consistent with chronic ischemic change. Age appropriate atrophy. No intracranial mass or hemorrhage is noted. 2. Chest x-ray on 12/11/16. Radiologist Impression: Finding consistent with bibasilar early pneumonia. 3. Chest x-ray on 12/13/16. Radiologist Impression: Bibasilar infiltrates demonstrating slight progression. Possible left basilar pulmonary nodules. Consider a noncontrast CT of the chest for further evaluation. 4. Chest CT on 12/14/16. Radiologist Impression: There is patchy multifocal and confluent ground-glass opacification and consolidation of the lungs bilaterally. The appearance is suggestive of an infectious or inflammatory process. Recommend followup until resolution to exclude underlying pulmonary parenchymal pathology. DISCHARGE MEDICATIONS: [place] Medications: 1. Azithromycin 250 mg oral daily for 2 days. 2. Cefdinir 300 mg oral twice daily for 4 days. Continued Home Medications: 1. Acetaminophen 650 mg oral every 6 hours as needed for fever or pain. 2. Aricept 10 mg oral daily at bedtime. 3. Atorvastatin 10 mg oral daily at bedtime. 4. Dietary management product one oral after meals. 5. Vitamin B12 500 mcg oral daily. 6. Losartan 25 mg oral daily. 7. Linagliptin 5 mg oral daily. 8. Colace 100 mg oral daily. 9. Aspirin 81 mg oral daily. 10. Triamcinolone 0.1% 1 apply topically as needed for itching. Discontinued Home Medications: 1. Amoxicillin. HISTORY OF PRESENT ILLNESS/HOSPITAL COURSE: Mr. Snyder is an 86-year-old male with past medical history significant for Alzheimer's dementia, hypertension, hyperlipidemia, diabetes mellitus, TIA, moderate aortic stenosis, and prostate cancer, who presented to the hospital from [facility] with increased confusion and fever. Due to the patient's advanced dementia, I am unable to obtain a history from the patient and history was obtained from the patient's chart and nursing. It was reported this patient had had increased confusion over several days. His daughter felt that he had been declining and was more weak. The patient who had usually been clean-shaven, had been unshaven which was unusual for himself. He possibly had a fall. The patient denied any complaints, but was confused. He denied any chest pain, cough, shortness of breath. Based off the concern for the patient's change in mental status and fever, he was brought to the emergency room for further evaluation of his symptoms. While in the emergency room, the patient had labs that were significant for leukocytosis with a white blood cell count of 19.5. The patient's creatinine was slightly elevated from his baseline of 1.24. The patient's lactic acid was 2.8. Liver functions were normal limits. He had a troponin of 0.03. The patient had a urinalysis with 1+ ketones; otherwise negative. The patient had a CT of his chest showing no acute disease. He also had a chest x-ray showing bilateral infiltrates. Based off concern that the patient is having community- acquired pneumonia, the hospitalists were asked to evaluate the patient for admission. While in the hospital, the patient remained febrile. He eventually had been afebrile and has been afebrile at this point for greater than 48 hours. The patient's vital signs have been stable. The patient had a repeat chest x-ray on December 13 showing bilateral infiltrates. The patient was treated with azithromycin and ceftriaxone during his hospitalization. The patient did have a chest x-ray with possible concerns for lung nodule, so the patient underwent CT of his chest. The CT of the patient's chest showed a patchy multifocal and confluent ground-glass opacification and consolidation of the lungs bilateral. The patient's leukocytosis has resolved. The patient's creatinine has returned to his baseline after IV hydration. The patient's slightly elevated troponin was suspected to be related to demand ischemia. Mr. Snyder has continued to feel improved, has had no shortness of breath, is not requiring supplemental oxygen. The patient's urine antigens were negative for S. pneumoniae and Legionella. Mr. Snyder is stable for discharge to home today. Activity as tolerated. He should be on heart healthy diet. As far as the patient's community-acquired pneumonia, he should be continued on azithromycin 250 mg oral daily for 2 days to complete a 5-day total course. The patient should also be continued on cefdinir 300 mg oral twice daily for 4 more days to complete a 7-day course of cephalosporin. The patient should be seen in followup by his primary care provider, Dr. Azucena Ordaz. He has an appointment on 12/19/16, at 4:10 p.m. The patient has been instructed to return to the emergency room for shortness of breath or chest discomfort. This is a summarized report of a complex medical history and hospital stay. For further details, please see the entire medical record. TIME SPENT: Time for this discharge was 50 minutes and 20 minutes was spent face- to-face with the patient discussing discharge plans and instructions. It is to note that the patient does have a history of dementia and confusion. CONDITION ON DISCHARGE: Stable. BELLA BLANC NP ADDENDUM: DISCHARGE PLAN: As far as the patient's CT scan showing patchy multifocal and confluent ground-glass opacification and consolidation of the lungs bilaterally , I recommend the patient have followup imaging once his pneumonia has resolved to rule out any underlying pulmonary parenchymal pathology. BELLA BLANC NP CC: Mohinder Ordaz MD* [id number]/[facility] #: [id number]/[facility] #: [id number] [place]
== END 2016-12-15 16:00 | disposition home health service (06) | DRG 871 ==
LOC: ED 11:27 → MED 16:12
PROVIDERS: ADMIT Hospitalist; ATTEND Internal Medicine
DX: A41.9 Sepsis, unspecified organism (principal); J18.9 Pneumonia, unspecified organism; N17.9 Acute kidney failure, unspecified; E87.2 Acidosis; I24.8 Other forms of acute ischemic heart disease; I10 Essential (primary) hypertension; E78.5 Hyperlipidemia, unspecified; E11.9 Type 2 diabetes mellitus without complications; Z86.73 Personal history of transient ischemic attack (TIA), and cerebral infarction without residual deficits; Z79.82 Long term (current) use of aspirin; G30.9 Alzheimer's disease, unspecified; F02.80 Dementia in other diseases classified elsewhere, unspecified severity, without behavioral disturbance, psychotic disturbance, mood disturbance, and anxiety; Z85.46 Personal history of malignant neoplasm of prostate; R91.1 Solitary pulmonary nodule; Z96.652 Presence of left artificial knee joint; Z88.8 Allergy status to other drugs, medicaments and biological substances; R19.7 Diarrhea, unspecified; Z98.1 Arthrodesis status; Z87.891 Personal history of nicotine dependence
CPT/HCPCS: 36415; 70450; 71010; 71020; 71250; 80048; 80053; 81003; 82140; 83605; 83735; 84443; 84484; 85025; 87641; 87899; 93005; A9270-GY; J0456; J0696; J1644

== ENCOUNTER 2017-03-06 11:50 | Observation (INO) | payer MEDICARE ==
[2017-03-06] MEDS ORDERED: NS 0.9% 1000 ML* 1,000 ML IV ONE (12:08)
[2017-03-06 12:31] LABS: Hematocrit 41 % (42-52); Hemoglobin 13.3 g/dl (14.0-18.0); Mean Corpuscular HGB Conc 33 g/dl (31-36); Mean Corpuscular Hemoglobin 30 pg (27-31); Mean Corpuscular Volume 91 fL (80-94); Mean Platelet Volume 9 um3 (7.4-10.4); Red Blood Count 4.47 10^6/ul (4.0-5.4); Red Cell Distribution Width 15 % (10.5-15); White Blood Count 9.3 10^3/ul (3.5-10.8)
[2017-03-06 12:43] LABS: Albumin 3.8 g/dL (3.2-5.2); BUN/Creatinine Ratio 14.6 (8-20); Calcium 8.8 mg/dL (8.6-10.3); EGFR African American 71.6 (>60); EGFR Non-African American 55.7 (>60); Globulin 2.7 g/dL (2-4); Magnesium 2.1 mg/dL (1.9-2.7); Total Bilirubin 0.8 mg/dL (0.2-1.0); Total Protein 6.5 g/dL (6.4-8.9)
[2017-03-06 12:45] LABS: Troponin I 0.01 ng/mL (<0.04)
--- NOTE | 2017-03-06 12:48 | RAD ---
Indication: Unresponsive. CT of the brain was performed without IV contrast. Comparison is made with previous exam dated December 11, 2016. Ventricular structures are midline. No midline shift is noted. Ventriculomegaly is noted. Periventricular lucency consistent with chronic ischemic White matter change is noted. IMPRESSION: No intracranial mass or hemorrhage is noted. Ventriculomegaly with chronic ischemic White matter change. No changes noted since prior exam. No acute findings are noted.
[2017-03-06 13:10] LABS: TSH (Thyroid Stimulating Horm) 6.29 mcIU/mL (0.34-5.60)
--- NOTE | 2017-03-06 13:10 | RAD ---
Indication: Unresponsive. 2 views of the chest and shape no mediastinal shift. Heart is of normal size and configuration. Lungs are clear. Previously identified infiltrates in the lung bases are no longer present. IMPRESSION: No active cardiopulmonary disease is noted.
[2017-03-06 15:03] LABS: Urine Bilirubin Negative (Negative); Urine Glucose Negative (Negative); Urine Nitrite Negative (Negative)
[2017-03-06] MEDS ORDERED: Dextrose 50% Syringe 50 ML* 25 GM/50 ML SYRINGE IV PUSH PRN (15:14)
[2017-03-06] MEDS ORDERED: Ondansetron INJ* 2 MG/ML VIAL IV PRN (15:14)
[2017-03-06] MEDS ORDERED: Acetaminophen TAB* 325 MG PO PRN (15:14)
--- NOTE | 2017-03-06 16:11 | ED ---
Fran Hudson SooYoung, scribed for Patrick Frankel MD on 03/06/17 at 1219 . Altered Mental Status - HPI Summary HPI Summary: A 87 y/o M ADA presents to ED after being unresponsive [employer]. Per EMS, pt was seated upright upon arrival and unresponsive; he had urinary incontinence; associated sx: diaphoretic and pale; pt not responding to voices and is speaking in a very quiet voice that is not his baseline; pupils constricted and staff states he is not on any narcotics; no sz activity noted. In ED, pt states feeling better, and denies CP, SOB, PAYAN, dizziness. Pt is alert but not oriented. Pert PMHx: Dementia, Alz. - History Of Current Complaint Chief Complaint: EDAltMentalStatus Stated Complaint: UNRESPONSIVE Hx Obtained From: Patient, EMS Hx From Patient Unobtainable Due To: Altered Mental Status Timing: Constant Severity Initially: Moderate Severity Currently: Moderate Character: Responsiveness - lack of - Allergies/Home Medications Allergies/Adverse Reactions: Allergies Allergy/AdvReac Type Severity Reaction Status Date / Time Lisinopril AdvReac Mild Coughing Verified 03/06/17 12:16 Home Medications: Home Medications Acetaminophen TAB* [Tylenol TAB*] 650 mg PO Q6H PRN 03/06/17 [History Confirmed 03/06/17] Aspirin Low Dose CHEW TAB* [Aspirin Low Dose TAB*] 81 mg PO DAILY 03/06/17 [ History Confirmed 03/06/17] Cyanocobalamin [Vitamin B-12] 500 mcg SL DAILY 03/06/17 [History Confirmed 03/06] Dietary Management Product [Axona] 1 pkt PO DAILY 03/06/17 [History Confirmed ] PMH/Surg Hx/FS Hx/Imm Hx Previously Healthy: No Endocrine/Hematology History: Reports: Hx Diabetes Cardiovascular History: Reports: Hx Deep Vein Thrombosis, Hx Hypertension Denies: Hx Pacemaker/ICD History: Reports: Other Problems/Disorders - prostate ca, radiation Musculoskeletal History: Reports: Hx Back Problems - Fusion L4-S1, Other Musculoskeletal History - L total knee replacemtn, fusion S1, L4, L5 Denies: Hx Scoliosis Sensory History: Reports: Hx Contacts or Glasses Denies: Hx Hearing Aid Opthamlomology History: Reports: Hx Contacts or Glasses Neurological History: Reports: Hx Dementia, Other Neuro Impairments/Disorders - alzheimers Psychiatric History: Reports: Other Psychiatric Issues/Disorders - alzheimers Denies: Hx Panic Disorder - Cancer History Cancer Type, 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 - Surgical History Surgery Procedure, Year, and Place: bilat knee replacements, back surgery L4- 5S1 fused, tonsillectomy, prostatectomy Infectious Disease History: Denies: Traveled Outside the [place] in Last 30 Days - Family History Known Family History: Positive: Cardiac Disease, Diabetes - Social History Occupation: Retired [facility]: [facility] Alcohol Use: None Hx Substance Use: No Substance Use Type: Reports: None Hx Tobacco Use: Yes Smoking Status (MU): Former Smoker Have You Smoked in the Last Year: No Review of Systems Positive: Skin Diaphoresis, Other - pos: pale Negative: Chest Pain Negative: Shortness Of Breath Positive: incontinence - urinary Neurological: Other - pos: unresponsiveness, quiet voice Negative: Headache All Other Systems Reviewed And Are Negative: Yes Physical Exam - Summary Physical Exam Summary: VITAL SIGNS: Reviewed. GENERAL: Patient is a FRAGILE male who is lying comfortable in the stretcher. Patient is not in any acute respiratory distress. HEAD AND FACE: No signs of trauma. No ecchymosis, hematomas or skull depressions. No sinus tenderness. EYES: PERRLA, EOMI x 2, No injected conjunctiva, no nystagmus. No photophobia. EARS: Hearing grossly intact. Ear canals and tympanic membranes are within normal limits. MOUTH: Oropharynx within normal limits. NECK: Supple, trachea is midline, no adenopathy, no JVD, no carotid bruit, no c- spine tenderness, neck with full ROM. No meningeal signs, no Kernig's or Brudzinskis signs. CHEST: Symmetric, no tenderness at palpation LUNGS: Clear to auscultation bilaterally. No wheezing or crackles. CVS: Regular rate and rhythm, S1 and S2 present, 2/6 ESM ABDOMEN: Soft, non-tender. FLAT. No signs of distention. No rebound, no guarding , and no masses palpated. Bowel sounds are normal. : URINARY INCONTINENCE EXTREMITIES: FROM in all major joints, no edema, no cyanosis or clubbing. NEURO: ALERT BUT NOT ORIENTED. No acute neurological deficits. Speech is normal and follows commands. SKIN: Dry and warm, PALE Triage Information Reviewed: Yes Vital Signs On Initial Exam: Initial Vitals Temp Pulse Resp BP Pulse Ox 96.7 F 71 16 88/51 92 03/06/17 11:52 03/06/17 11:52 03/06/17 11:52 03/06/17 11:52 03/06/17 11:52 Vital Signs Reviewed: Yes Diagnostics - Vital Signs Vital Signs Temp Pulse Resp BP Pulse Ox 03/06/17 11:52 96.7 F 71 16 88/51 92 - Laboratory Lab Results: Lab Results 03/06/17 03/06/17 03/06/17 Range/Units 12:05 12:05 12:05 WBC 9.3 (3.5-10.8) 10^3/ul RBC 4.47 (4.0-5.4) 10^6/ul Hgb 13.3 L (14.0-18.0) g/dl Hct 41 L (42-52) % MCV 91 (80-94) fL MCH 30 (27-31) pg MCHC 33 (31-36) g/dl RDW 15 (10.5-15) % Plt Count 219 (150-450) 10^3/ul MPV 9 (7.4-10.4) um3 Neut % (Auto) 72.0 (38-83) % Lymph % (Auto) 21.2 L (25-47) % [place] % (Auto) 5.6 (1-9) % Eos % (Auto) 0.4 (0-6) % Baso % (Auto) 0.8 (0-2) % Absolute Neuts (auto) 6.7 (1.5-7.7) 10^3/ul Absolute Lymphs (auto) 2.0 (1.0-4.8) 10^3/ul Absolute Monos (auto) 0.5 (0-0.8) 10^3/ul Absolute Eos (auto) 0 (0-0.6) 10^3/ul Absolute Basos (auto) 0.1 (0-0.2) 10^3/ul Absolute Nucleated RBC 0.01 10^3/ul Nucleated RBC % 0.1 Sodium 138 (133-145) mmol/L Potassium 4.0 (3.5-5.0) mmol/L Chloride 106 (101-111) mmol/L Carbon Dioxide 26 (22-32) mmol/L Anion Gap 6 (2-11) mmol/L BUN 18 (6-24) mg/dL Creatinine 1.23 H (0.67-1.17) mg/dL Est GFR ( Amer) 71.6 (>60) Est GFR (Non-Af Amer) 55.7 (>60) BUN/Creatinine Ratio 14.6 (8-20) Glucose 161 H (70-100) mg/dL Calcium 8.8 (8.6-10.3) mg/dL Magnesium 2.1 (1.9-2.7) mg/dL Total Bilirubin 0.80 (0.2-1.0) mg/dL AST 16 (13-39) U/L ALT 10 (7-52) U/L Alkaline Phosphatase 65 (34-104) U/L Troponin I 0.01 (<0.04) ng/mL B-Natriuretic Peptide 60 ( - 100) pg/mL Total Protein 6.5 (6.4-8.9) g/dL Albumin 3.8 (3.2-5.2) g/dL Globulin 2.7 (2-4) g/dL Albumin/Globulin Ratio 1.4 (1-3) TSH Pending Result Diagrams: 03/06/17 12:05 03/06/17 12:05 Lab Statement: Any lab studies that have been ordered have been reviewed, and results considered in the medical decision making process. - Radiology CXR Xray Interpretation: No Acute Changes - IMPRESSION: No active cardiopulmonary dz. Radiology Interpretation Completed By: Radiologist - CT BRAIN CT CT Interpretation: Positive (See Comments) - IMPRESSION: No intracranial mass or hemorrhage is noted. Ventriculomegaly with chronic ischemic White matter change. No changes noted since prior exam. No acute findings are noted. [address] Interpretation Completed By: Radiologist - EKG 1 Cardiac Rate: NL - 67bpm EKG Rhythm: Sinus Rhythm ST Segment: Normal Altered Mental Statu Course/Dx - Course Assessment/Plan: A 87 y/o M ADA presents to ED after being unresponsive [employer]. Per EMS, pt was seated upright upon arrival and unresponsive; he had urinary incontinence; associated sx: diaphoretic and pale; pt not responding to voices and is speaking in a very quiet voice that is not his baseline; pupils constricted and staff states he is not on any narcotics; no sz activity noted. In ED, pt states feeling better, and denies CP, SOB, PAYAN, dizziness. Pt is alert but not oriented. Pert PMHx: Dementia, Alz. Test results shows a slight anemia , Creatinine of 1.23, glucose of 161, UA negative for UTI. In the ED course he was given IVF for his hypotension. After 1 litter of IVF BP improved. Head CT: IMPRESSION: No intracranial mass or hemorrhage is noted. Ventriculomegaly with chronic ischemic White matter change. No changes noted since prior exam. No acute findings are noted. CXR IMPRESSION: No active cardiopulmonary disease is noted. Therefore I this time I discussed the case with Dr. Maya and she will admit patient to her services for further assessment. We will have to r/o syncope vs. Seizure vs Arrhythmia. - Diagnoses Differential Diagnosis/HQI/PQRI: CVA, Hypoglycemia, Intracranial Bleed, Medication Reaction, Postictal State, Sepsis, Seizure, TIA Discharge Diagnoses: syncope vs Seizure - Provider Notifications Discussed Care Of Patient With: Fozia Maya - hospitalist Time Discussed With Above Provider: 14:52 Instructed by Provider To: Admit As Inpatient Discharge - Discharge Plan Condition: Stable Disposition: ADMITTED TO [facility] Referrals: Mohinder Ordaz MD [Primary Care Provider] - The documentation as recorded by the Fran velazquez SooYoung accurately reflects the service I personally performed and the decisions made by me, Patrick Frankel MD.
[2017-03-06] MEDS: Insulin LISPRO* 1 UNITS UNIT SUBCUT SCH (17:32)
[2017-03-06] MEDS: NS 0.9% 1000 ML* 1,000 ML IV SCH (17:45)
--- NOTE | 2017-03-06 17:48 | HP ---
HISTORY AND PHYSICAL: DATE OF ADMISSION: 03/06/17 PRIMARY CARE PROVIDER: Dr. Ordaz. ATTENDING PHYSICIAN WHILE IN THE HOSPITAL: Dr. Fozia Maya* (report dictated by Luis Felipe Lo, BALJIT). CHIEF COMPLAINT: 1. Hypertension. 2. Altered mental status. HISTORY OF PRESENT ILLNESS: Mr. Snyder is an 87-year-old male patient, he carries a history of dementia. He is really not able to give me much history. He does not recall any of the events today. He does reside over at [facility]. He says he does not remember what happened today, but according to the nurses' notes it was noted today that he had an episode of unresponsiveness at [facility]. He was alert to voice. He was noted to be hypotensive at 88/51. Also he was noted to be hypoxic as well. I guess his O2 sats were in the 80s. He does not really recall any recent illnesses. No fevers or chills. No vomiting or diarrhea. He denied having any shortness of breath. He does not really recall this event. Apparently, he was also again very hypotensive, not really responding. There was concern on the part of [facility] staff and they called 911. He was brought in to the hospital to be evaluated. There was no seizure-like activity described according to the nurses' notes. PAST MEDICAL HISTORY: Significant for: 1. Dementia. 2. Hypertension. 3. Hyperlipidemia. 4. Diabetes. 5. Moderate . 6. TIA. 7. Prostate cancer. PAST SURGICAL HISTORY: 1. He has had a left total knee replacement. 2. Back surgery. 3. Tonsillectomy. HOME MEDICATIONS: According to the list that was sent with the patient include: 1. Triamcinolone cream, one application topically daily as needed. 2. Losartan 25 mg daily. 3. Tradjenta 5 mg p.o. daily. 4. Colace 100 mg daily. 5. Axona ONE packet p.o. daily. 6. B12 500 mcg daily. 7. Aspirin 81 mg daily. 8. Tylenol 650 mg every 6 hours as needed. ALLERGIES TO MEDICATIONS: Include LISINOPRIL. FAMILY HISTORY: Attempted to be reviewed, it is unknown. SOCIAL HISTORY: He does not smoke. He does not drink. Surrogate decision maker is his daughter. He lives at [facility]. REVIEW OF SYSTEMS: There is no documented fever. He denied having any chest pain or shortness of breath. Denied having any nausea or vomiting. He denied any dysurias. He denied having any episodes of passing out. He denied any seizure activity. Review of 14 systems completed, all others negative. PHYSICAL EXAMINATION GENERAL: At this time, Mr. Snyder is an 87-year-old male patient. He is sitting in the ER stretcher. He does not appear to be in any acute distress. VITAL SIGNS: Blood pressure 121/56, pulse 84, respirations 18, O2 sat 100% now on room air, and his temperature was 96.8. HEENT: Head is atraumatic and normocephalic. Eyes: EOMs intact. Sclerae anicteric. Throat: Oral mucosa appears to be dry. No oropharyngeal erythema. NECK: Supple. LUNGS: Clear to auscultation. No wheezes, rales, or rhonchi. HEART: Sounds S1, S2. Regular rate and rhythm. No murmurs, rubs, or gallops. ABDOMEN: Soft, flat, nontender. Bowel sounds present. EXTREMITIES: Pulses 2+ throughout. Able to move all 4 extremities with 5/5 strength. NEUROLOGIC: He is awake. He is alert to himself only. His project systems engineer were equal. Tongue was midline. He had no gross focal deficits. He is confused to time and place. SKIN: Grossly intact. LABORATORY DATA AND DIAGNOSTIC STUDIES: Today reveal a WBC of 9.3, RBC of 4.47 , hemoglobin 13.3, hematocrit of 41, platelet count 119,000. Sodium 138, potassium 4.0, chloride 106, bicarb 26, BUN 18, his creatinine was 1.23 which is up from his baseline. His glucose is 161, calcium 8.8, magnesium 2.1. Total bili 0.8, AST 16, ALT 10, alk phos 65, ammonia 33. Troponin 0.01. BNP 60. TSH is 6.29. Urine was obtained, it was negative. He had a chest x-ray obtained today which revealed no active cardiopulmonary disease. He had a brain CT obtained today which revealed no intracranial mass or hemorrhages noted. Ventriculomegaly with chronic ischemic white matter change. No changes noted since prior exam. No acute findings were noted. He had an EKG obtained today as well which showed a normal sinus rhythm, rate of 67. No ST elevation or T-wave inversions were noted. It is reviewed with an EKG from November of this year, appears to be similar. Old medical records were reviewed. ASSESSMENT AND PLAN: Mr. Snyder is an 87-year-old male patient coming in to the ER today with complaints of an unresponsive episode. He does not really recall this event. Again, he has underlying dementia, so it is difficult to get a good history of presenting illness from him, but according to the notes, he was unresponsive and hypotensive and there was a concern for hypoxia. We were asked to evaluate for admission. He will be admitted under observation status for: 1. Altered mental status: Etiology is unclear. I am questioning if he is dehydrated, he may have become orthostatic and with his moderate to severe aortic stenosis, it may have been enough to have him syncopized. My plan at this point is to go ahead and check an echo, orthostatics, telemetry, hydrate the patient. His blood pressure is stable now. I am going to hold his Cozaar and I will continue to monitor him and follow. 2. Hypoxia: Again, etiology is unclear. Chest x-ray is negative. His sats now are normal on room air. I do not think he has a pulmonary embolism. I will add on a D-dimer just to take that off the table. If that is positive, then I will get a CTA of the chest to make sure, but I think this is less likely. He may have been malperfused in the extremities with a low blood pressure and that is why the sats were low, but we will continue to monitor. 3. Dementia: Continue with supportive care. 4. History of diabetes: He will be on a lispro sliding scale. 5. Aortic stenosis: Again, we will repeat the echo. 6. Hypertension: Again, holding medications at this point. 7. Hyperlipidemia: Continue current medical regimen. 8. History of prostate cancer: He can follow with his primary. 9. History of transient ischemic attack: Continue with secondary prevention. 10. DVT prophylaxis: He will be placed on heparin subcu. 11. Code status: He is a DNR. 12. Fluids, electrolytes, and nutrition: He can have a consistent carbohydrate diet. TIME SPENT: Time spent on the admission was approximately 70 minutes; greater than half the time was spent [id number] with the patient obtaining my history and physical, other half of the time spent going over the plan of care with the patient and implementing plan of care. I did discuss the plan of care with my attending, Dr. Maya; she is in agreement. LUIS FELIPE LO NP CC: Dr. Ordaz * [id number]/CPS #: [id number] ELMA
[2017-03-06] MEDS: Heparin VIAL(*) 5000 UNITS/ML VIAL (FIVE THOUSAND) SUBCUT SCH (20:58)
[2017-03-07 05:14] LABS: BUN/Creatinine Ratio 17.7 (8-20); Calcium 8.7 mg/dL (8.6-10.3); EGFR African American 119.3 (>60); EGFR Non-African American 92.8 (>60); Potassium 4.2 mmol/L (3.5-5.0)
[2017-03-07] MEDS: Heparin VIAL(*) 5000 UNITS/ML VIAL (FIVE THOUSAND) SUBCUT SCH ×2 (05:48→13:29)
[2017-03-07 05:52] LABS: Hematocrit 38 % (42-52); Hemoglobin 12.4 g/dl (14.0-18.0); Mean Corpuscular HGB Conc 33 g/dl (31-36); Mean Corpuscular Hemoglobin 30 pg (27-31); Mean Corpuscular Volume 90 fL (80-94); Mean Platelet Volume 8 um3 (7.4-10.4); Red Blood Count 4.16 10^6/ul (4.0-5.4); Red Cell Distribution Width 15 % (10.5-15); White Blood Count 8.5 10^3/ul (3.5-10.8)
[2017-03-07] MEDS: NS 0.9% 1000 ML* 1,000 ML IV SCH (07:21)
[2017-03-07] MEDS: Insulin LISPRO* 1 UNITS UNIT SUBCUT SCH ×2 (07:35→11:43)
--- NOTE | 2017-03-07 08:31 | ECHO ---
Patient: SAIMA MARTINEZ [facility] Rec#: [id number] : 1930 Date: 03/06/2017 Age: 87y Height: 177.8 cm / 70.0 in Weight: 77.1 kg / 169.9 lbs Sex: M BSA: 1.95 Room#: ED 14 Admit Date#: 03/06/2017 Type: Inpatient Referring: Luis Felipe Lo NP Reading: Iván Hubbard MD Tunnel Heading Inspector: Yumiko Christopher RN RDCS CC: Mohinder Ordaz MD Transthoracic Echocardiogram Indication: Syncope BP: 121/56 HR: 80 Rhythm: NSR Findings History: HTN, DM, Alzheimer's disease, prostate cancer, former smoker Technical Comments: The study quality is fair. The study is technically limited due to poor parasternal windows. The study is technically limited due to the patient's smoking history. Completed at 1730. Left Ventricle: The left ventricular chamber size is decreased. Mild to moderate concentric left ventricular hypertrophy is observed. Global left ventricular wall motion and contractility are within normal limits. There is normal left ventricular systolic function. The estimated ejection fraction is 60-65%. There is an E to A reversal in the mitral valve flow pattern suggestive of diastolic dysfunction. Left Atrium: The left atrial chamber size is normal. Right Ventricle: The right ventricular chamber size and systolic function are within normal limits. Right Atrium: The right atrial cavity size is normal. Aortic Valve: The aortic valve leaflets are moderately thickened. Systolic excursion of the aortic valve cusps is reduced. There is aortic annular calcification. There is trace to mild aortic regurgitation. There is moderate aortic stenosis. The mean gradient of the aortic valve is 14 mmHg. The peak instantaneous gradient of the aortic valve is 23 mmHg. The aortic valve area, by peak velocities, is calculated at 1.1 cm2. The aortic valve area, by VTI's, is calculated at 1 cm2. Dimensionless index is 0.32-0.35. Mitral Valve: Moderate mitral annular calcification present. The mitral valve leaflets are mildly thickened. Mitral valve leaflet mobility is moderately restricted. There is a trace of mitral regurgitation. There is mild mitral stenosis. Tricuspid Valve: The tricuspid valve leaflets are normal. There is trace tricuspid regurgitation. Unable to estimate the right ventricular systolic pressure. Pulmonic Valve: The pulmonic valve structure is not well visualized. Pericardium: There is no significant pericardial effusion. Aorta: There is no dilatation of the ascending aorta. The aortic arch is not well visualized. There is mild dilatation of the aortic root. Pulmonary Artery: The main pulmonary artery is not well visualized. Venous: The inferior vena cava appears normal in size. There is a greater than 50% respiratory change in the inferior vena cava dimension. Summary: There are no significant changes when compared to the previous study done on 11/23/14 Conclusions Mild to moderate concentric left ventricular hypertrophy is observed. Global left ventricular wall motion and contractility are within normal limits. The estimated ejection fraction is 60-65%. There is an E to A reversal in the mitral valve flow pattern suggestive of diastolic dysfunction. The right ventricular chamber size and systolic function are within normal limits. Systolic excursion of the aortic valve cusps is reduced. There is moderate aortic stenosis. There is trace to mild aortic regurgitation. The mean gradient of the aortic valve is 14 mmHg. Moderate mitral annular calcification present. There is mild mitral stenosis. There is a trace of mitral regurgitation. There is trace tricuspid regurgitation. Unable to estimate the right ventricular systolic pressure. There is no significant pericardial effusion. There are no significant changes when compared to the previous study done on 11/23/14 Measurements Name Value Normal Range RVDdMajor (2D) 2.9 cm (2.2 - 4.4) RAd ISD 4CH 4.9 cm (3.4 - 4.9) RA (A4C)W 4.2 cm (2.9 - 4.6) IVSd (2D) 1.3 cm (0.6 - 1) LVPWd (2D) 1.3 cm (0.6 - 1) IVS:LVPW ratio (2D) 1 ratio - LVIDd (2D) 3.5 cm (3.6 - 5.4) LVIDs (2D) 2.4 cm - LV FS (2D) 31 % (25 - 45) Aortic Annulus 2.5 cm (1.4 - 2.6) Ao root diameter (2D) 3.6 cm (2.1 - 3.5) Ascending Ao 2.8 cm (2.1 - 3.4) LA dimension (AP) 2D 3.9 cm (2.3 - 3.8) LAd ISD 4CH 4.9 cm (2.9 - 5.3) LA ISD 4CH W 4.2 cm (2.5 - 4.5) Name Value Normal Range LA ESV SP 4CH (A/L) 57 ml - LA ESV SP 2CH (A/L) 24 ml - LA ESV BP (A/L) 38 ml - LA ESV BP (A/L) index 19.4 ml/m2 - LA ESV SP 4CH (MOD) 55 ml - LA ESV SP 2CH (MOD) 22 ml - Name Value Normal Range MV E-wave Vmax 1.4 m/sec - MV deceleration time 168 msec - MV A-wave Vmax 2 m/sec - MV E:A ratio 0.71 ratio - LV septal e' Vmax 0.06 m/sec - LV lateral e' Vmax 0.08 m/sec - LV E:e' septal ratio 23.3 ratio - LV E:e' lateral ratio 17.5 ratio - Name Value Normal Range AV Vmax 2.4 m/sec - AV VTI 53.4 cm - AV peak gradient 23 mmHg - AV mean gradient 14 mmHg - LVOT diameter 2 cm - LVOT Vmax 0.85 m/sec - LVOT VTI 17.2 cm - LVOT peak gradient 2.9 mmHg - LVOT mean gradient 1.5 mmHg - DOI (VTI) 0.32 ratio - DOI (Vmax) 0.35 ratio - ALMA (continuity Vmax) 1.1 cm2 - ALMA (continuity VTI) 1 cm2 - Name Value Normal Range MV Vmax 2 m/sec - MV VTI 42.6 cm - MV peak gradient 16 mmHg - MV mean gradient 5.8 mmHg - MV PHT 78 msec - MVA (PHT) 2.8 cm2 - MVA (continuity VTI) 1.3 cm2 - Name Value Normal Range IVC diameter 1.7 cm - Name Value Normal Range PV Vmax 0.67 m/sec -
[2017-03-07] MEDS ORDERED: Aspirin Low Dose CHEW TAB* 81 MG PO SCH (09:00)
[2017-03-07] MEDS ORDERED: Docusate CAP* 100 MG PO SCH (09:00)
[2017-03-07 15:30] VITALS: BP 165/90
--- NOTE | 2017-03-07 16:19 | RAD ---
INDICATION: Syncope, altered mental status. COMPARISON: Comparison is made with a prior MRI of the brain from November 24, [address] of the brain from March 06, 2017. TECHNIQUE: Sagittal T1, axial T1, T2, susceptibility, FLAIR and diffusion weighted images were obtained. FINDINGS: The ventricles, cisterns and sulci are prominent consistent with diffuse atrophy. There are prominent areas of increased signal intensity on T2-weighted images present within the subcortical and periventricular white matter most consistent with severe chronic small vessel ischemic changes. No areas of restricted diffusion are present. There is no evidence for infarct or hemorrhage. The visualized portion of the paranasal sinuses and mastoid air cells appear clear. IMPRESSION: 1. THERE IS NO EVIDENCE FOR RESTRICTED DIFFUSION OR ACUTE INFARCT. 2. ATROPHY AND MODERATE TO SEVERE CHRONIC SMALL VESSEL ISCHEMIC CHANGES.
--- NOTE | 2017-03-08 02:28 | DS ---
CC: Mohinder Ordaz MD * DISCHARGE SUMMARY: DATE OF ADMISSION: 03/06/17 DATE OF DISCHARGE: 03/07/17 PRIMARY CARE PROVIDER: Mohinder Ordaz MD DISCHARGING PROVIDER: CASSANDRA Colon SUPERVISING PHYSICIAN: Willie Mo MD * (DICTATED BY CASSANDRA COLON) PRIMARY DISCHARGE DIAGNOSIS: Syncope and hypotension - likely secondary to orthostasis. SECONDARY DISCHARGE DIAGNOSES: 1. Dementia. 2. Moderate aortic stenosis. 3. Hypertension - recommend discontinuing losartan. 4. Hyperlipidemia. 5. Diabetes with good control, consider discontinuing Tradjenta. 6. History of transient ischemic attack. 7. History of prostate cancer. DISCHARGE MEDICATIONS: 1. Acetaminophen 650 mg p.o. q.6 hours as needed for pain or fever. 2. Aspirin 81 mg p.o. daily. 3. Vitamin B12 500 mg sublingual daily. 4. Colace 100 mg p.o. daily. 5. Tradjenta 5 mg p.o. daily. 6. Triamcinolone ointment 0.1% apply topically once daily as needed. HOSPITAL IMAGIN. CT of the brain shows no intracranial mass or hemorrhage. Noted ventriculomegaly with chronic ischemic white matter changes. No acute changes noted. 2. Chest x-ray shows no acute process. 3. MRI of the brain shows no evidence of acute infarct. There was significant atrophy and moderate to severe chronic small vessel ischemic changes. 4. Transthoracic echocardiogram demonstrates mild to moderate LVH with preserved left ventricular ejection fraction at 60% to 65%, evidence of diastolic dysfunction with moderate aortic stenosis without significant change compared to November of 2014. HOSPITAL COURSE: This is an 87-year-old gentleman with moderate dementia as well as hypertension, hyperlipidemia, noninsulin dependent diabetes as well as known moderate aortic stenosis. He sustained a syncopal episode and was subsequently unresponsive for several seconds at his [place] residence. The patient was noted to be hypotensive and hypoxic at that time and was transported via EMS to the hospital. When he reached the emergency department. Initial vitals demonstrated that he was hypotensive and initial blood pressure of 88/51 mmHg, but a normal heart rate and oxygen saturations at 92% with an OxyMask in place. Initial labs were largely unremarkable including a normal CBC. Comprehensive metabolic panel showed mildly elevated creatinine from baseline up to 1.23. Initial random glucose of 161. No other electrolyte abnormalities. TSH was mildly elevated at 6.2. Initial troponin was negative. The patient received IV fluids in the emergency department and his blood pressure responded nicely. The patient was awake and alert but due to his dementia unable to provide a comprehensive history. The patient was maintained on continuous telemetry monitoring, which showed no dysrhythmias. Serial troponin measurements remains negative. He underwent an echocardiogram that showed no change from about 2 years ago, confirmed presence of moderate aortic stenosis with associated LVH and some diastolic dysfunction, but again nothing acute. He was noted to be more confused the morning following admission and seemed to be more unsteady on his feet when compared to reported baseline from [place]. He underwent MRI of the brain, which did not demonstrate anything acute and his mental status improved throughout the day as did his ambulatory status. The patient underwent evaluation by Physical Therapy , who reported that he required minimal assistance with a rolling walker. The patient's acute syncopal episode seemed to be mediated by hypotension. What caused this hypotension is not entirely clear. There is no evidence of acute infection or other volume loss. No reported recent illness. His blood pressure has been within normal limits since admission. Recommend discontinuing his losartan and continuing to monitor blood pressure at home. Could also consider backing off on his diabetes treatment and discontinuing his Tradjenta. Unsure of what his glucose was during that acute syncopal episode. DISPOSITION AND FOLLOWUP PLAN: The patient is being discharged to home where he resides at [facility]. Recommend discontinuing losartan with close followup with his primary care provider and could consider discontinuation of his Tradjenta as well. No other medication changes or intervention recommended at this time. CASSANDRA COLON [id number]/CPS #: [id number] ELMA
== END 2017-03-07 17:52 | disposition home or self-care (01) ==
LOC: ED 11:50 → MEDTELE 15:12
PROVIDERS: ADMIT Internal Medicine; ATTEND Internal Medicine
DX: I35.0 Nonrheumatic aortic (valve) stenosis (principal); F03.90 Unspecified dementia, unspecified severity, without behavioral disturbance, psychotic disturbance, mood disturbance, and anxiety; I10 Essential (primary) hypertension; E78.5 Hyperlipidemia, unspecified; E11.8 Type 2 diabetes mellitus with unspecified complications; Z86.73 Personal history of transient ischemic attack (TIA), and cerebral infarction without residual deficits; Z85.46 Personal history of malignant neoplasm of prostate; Z87.891 Personal history of nicotine dependence; R41.82 Altered mental status, unspecified; Z79.4 Long term (current) use of insulin; Z79.82 Long term (current) use of aspirin
CPT/HCPCS: 36415; 70450; 70551; 71020; 80048; 80053; 81003; 82140; 83735; 83880; 84443; 84484; 85025; 85379; 93005; 93306; 94760; 99284; A9270-GY; G0378; G8978-GP-CK; G8979-GP-CI; G8980-GP-CK; J1644

== ENCOUNTER 2017-03-31 14:27 | Emergency (ER) | payer MEDICARE ==
[2017-03-31 16:21] VITALS: BP 116/71
[2017-03-31] MEDS: NS 0.9% 1000 ML* 2,000 ML IV ONE (17:05)
--- NOTE | 2017-03-31 17:05 | RAD ---
Indication: Altered mental status. Weakness. Comparison: No relevant prior exams available on the [facility] PACS for comparison. Technique: Upright AP 1643 hours Report: Small calcified granuloma at the LEFT upper lung zone without change. No pulmonary infiltrate, suspicious focal pulmonary lesion, pleural effusion, or pneumothorax. The heart, pulmonary vasculature, and mediastinal contours are unremarkable. IMPRESSION: No evidence for acute intrathoracic disease.
[2017-03-31 17:06] LABS: Hematocrit 41 % (42-52); Hemoglobin 13.7 g/dl (14.0-18.0); Mean Corpuscular HGB Conc 33 g/dl (31-36); Mean Corpuscular Hemoglobin 31 pg (27-31); Mean Corpuscular Volume 93 fL (80-94); Mean Platelet Volume 8 um3 (7.4-10.4); Red Blood Count 4.44 10^6/ul (4.0-5.4); Red Cell Distribution Width 15 % (10.5-15); White Blood Count 9.4 10^3/ul (3.5-10.8)
[2017-03-31 17:22] LABS: BUN/Creatinine Ratio 18.7 (8-20); Calcium 9.2 mg/dL (8.6-10.3); EGFR African American 101.4 (>60); EGFR Non-African American 78.8 (>60); Globulin 2.9 g/dL (2-4); Magnesium 2.3 mg/dL (1.9-2.7); Potassium 3.8 mmol/L (3.5-5.0); Total Bilirubin 0.5 mg/dL (0.2-1.0); Total Protein 6.9 g/dL (6.4-8.9)
[2017-03-31 17:23] LABS: Troponin I 0.01 ng/mL (<0.04)
[2017-03-31 18:42] LABS: Urine Bilirubin Negative (Negative); Urine Glucose Negative (Negative); Urine Nitrite Negative (Negative)
--- NOTE | 2017-03-31 20:28 | ED ---
Jorge Hudson Alok, scribed for Mauricio Bonds MD on 03/31/17 at 1605 . Altered Mental Status - HPI Summary HPI Summary: 87M [facility] an episode of diaphoresis and confusion. Pt sugar was checked at 233. Pt denies pain, fever, chills, N/V, or abd pain. Pt states his appetite and BMs have been nml and denies urinary symptoms. PMHx includes HLD, HTN, Type II DM, and alzheimer's. Pt hx limited to AMS and h/o alzheimer's, level 5 caveat. - History Of Current Complaint Chief Complaint: EDAltMentalStatus Stated Complaint: WEAKNESS, Time Seen by Provider: 03/31/17 15:33 Hx From Patient Unobtainable Due To: Altered Mental Status Onset/Duration: Still Present Timing: Constant Severity Initially: Moderate Severity Currently: Moderate Character: Confusion Aggravating Factor(s): Nothing Alleviating Factor(s): Nothing Associated Signs And Symptoms: Positive: Negative - Allergies/Home Medications Allergies/Adverse Reactions: Allergies Allergy/AdvReac Type Severity Reaction Status Date / Time Lisinopril AdvReac Mild Coughing Verified 03/06/17 12:16 PMH/Surg Hx/FS Hx/Imm Hx Endocrine/Hematology History: Reports: Hx Diabetes Cardiovascular History: Reports: Hx Deep Vein Thrombosis, Hx Hypertension Denies: Hx Pacemaker/ICD History: Reports: Other Problems/Disorders - prostate ca, radiation Musculoskeletal History: Reports: Hx Back Problems - Fusion L4-S1, Other Musculoskeletal History - L total knee replacemtn, fusion S1, L4, L5 Denies: Hx Scoliosis Sensory History: Reports: Hx Contacts or Glasses Denies: Hx Hearing Aid Opthamlomology History: Reports: Hx Contacts or Glasses Neurological History: Reports: Hx Dementia, Other Neuro Impairments/Disorders - alzheimers Psychiatric History: Reports: Other Psychiatric Issues/Disorders - alzheimers Denies: Hx Panic Disorder - Cancer History Cancer Type, 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, CATARACT Infectious Disease History: No Infectious Disease History: Denies: Traveled Outside the [place] in Last 30 Days - Family History Known Family History: Positive: Cardiac Disease, Diabetes - Social History Occupation: Retired Lives: At [facility] Alcohol Use: Rare Hx Substance Use: No Substance Use Type: Reports: None Hx Tobacco Use: Yes Smoking Status (MU): Former Smoker Have You Smoked in the Last Year: No Review of Systems Negative: Fever, Chills Negative: Abdominal Pain, Vomiting, Nausea Positive: no symptoms reported - urinary All Other Systems Reviewed And Are Negative: No Physical Exam - Summary Physical Exam Summary: Patient physical limited due to altered mental status level 5 caveat. The appears well-nourished and denies pain or symptoms. The skin is warm and dry and skin color reflects adequate perfusion. HEENT: The head is normocephalic and atraumatic. The pupils are equal and reactive. The conjunctivae are clear and without drainage. Nares are patent and without drainage. Mouth reveals slightly dry mucous membranes and the throat is without erythema and exudate. The external ears are intact. The ear canals are patent and without drainage. The tympanic membranes are intact. Respiratory: Chest is non-tender. Lungs are clear to auscultation and breath sounds are symmetrical and equal. Cardiovascular: Heart is regular rate and rhythm. There is no murmur or rub auscultated. There is no peripheral edema and pulses are symmetrical and equal. Abdomen: The abdomen is soft and non-tender. There are normal bowel sounds heard in all four quadrants and there is no organomegaly palpated. Musculoskeletal: Extremities are non-tender with full range of motion. There is good capillary refill. There is no peripheral edema or calf tenderness elicited. Triage Information Reviewed: Yes Vital Signs On Initial Exam: Initial Vitals BP 136/68 03/31/17 14:41 Vital Signs Reviewed: Yes Completion Of Physical Exam Limited Due To: Level 5 Diagnostics - Vital Signs Vital Signs Temp Pulse Resp BP Pulse Ox 03/31/17 14:44 99.1 F 91 15 136/68 98 03/31/17 14:43 93 96 03/31/17 14:41 136/68 - Laboratory Lab Results: Lab Results 03/31/17 03/31/17 03/31/17 Range/Units 16:59 16:59 16:59 WBC 9.4 (3.5-10.8) 10^3/ul RBC 4.44 (4.0-5.4) 10^6/ul Hgb 13.7 L (14.0-18.0) g/dl Hct 41 L (42-52) % MCV 93 (80-94) fL MCH 31 (27-31) pg MCHC 33 (31-36) g/dl RDW 15 (10.5-15) % Plt Count 221 (150-450) 10^3/ul MPV 8 (7.4-10.4) um3 Neut % (Auto) 62.6 (38-83) % Lymph % (Auto) 29.3 (25-47) % [place] % (Auto) 6.8 (1-9) % Eos % (Auto) 0.7 (0-6) % Baso % (Auto) 0.6 (0-2) % Absolute Neuts (auto) 5.9 (1.5-7.7) 10^3/ul Absolute Lymphs (auto) 2.8 (1.0-4.8) 10^3/ul Absolute Monos (auto) 0.6 (0-0.8) 10^3/ul Absolute Eos (auto) 0.1 (0-0.6) 10^3/ul Absolute Basos (auto) 0.1 (0-0.2) 10^3/ul Absolute Nucleated RBC 0.01 10^3/ul Nucleated RBC % 0.1 Sodium 139 (133-145) mmol/L Potassium 3.8 (3.5-5.0) mmol/L Chloride 106 (101-111) mmol/L Carbon Dioxide 29 (22-32) mmol/L Anion Gap 4 (2-11) mmol/L BUN 17 (6-24) mg/dL Creatinine 0.91 (0.67-1.17) mg/dL Est GFR ( Amer) 101.4 (>60) Est GFR (Non-Af Amer) 78.8 (>60) BUN/Creatinine Ratio 18.7 (8-20) Glucose 116 H (70-100) mg/dL Lactic Acid 0.9 (0.5-2.0) mmol/L Calcium 9.2 (8.6-10.3) mg/dL Magnesium 2.3 (1.9-2.7) mg/dL Total Bilirubin 0.50 (0.2-1.0) mg/dL AST 15 (13-39) U/L ALT 9 (7-52) U/L Alkaline Phosphatase 78 (34-104) U/L Total Creatine Kinase 87 (10-223) U/L Troponin I 0.01 (<0.04) ng/mL Total Protein 6.9 (6.4-8.9) g/dL Albumin 4.0 (3.2-5.2) g/dL Globulin 2.9 (2-4) g/dL Albumin/Globulin Ratio 1.4 (1-3) Urine Color Urine Appearance Urine pH (5-9) Ur Specific [place] (1.010-1.030) Urine Protein (Negative) Urine Ketones (Negative) Urine Blood (Negative) Urine Nitrate (Negative) Urine Bilirubin (Negative) Urine Urobilinogen (Negative) Ur Leukocyte Esterase (Negative) Urine Glucose (Negative) 03/31/17 Range/Units 18:25 WBC (3.5-10.8) 10^3/ul RBC (4.0-5.4) 10^6/ul Hgb (14.0-18.0) g/dl Hct (42-52) % MCV (80-94) fL MCH (27-31) pg MCHC (31-36) g/dl RDW (10.5-15) % Plt Count (150-450) 10^3/ul MPV (7.4-10.4) um3 Neut % (Auto) (38-83) % Lymph % (Auto) (25-47) % [place] % (Auto) (1-9) % Eos % (Auto) (0-6) % Baso % (Auto) (0-2) % Absolute Neuts (auto) (1.5-7.7) 10^3/ul Absolute Lymphs (auto) (1.0-4.8) 10^3/ul Absolute Monos (auto) (0-0.8) 10^3/ul Absolute Eos (auto) (0-0.6) 10^3/ul Absolute Basos (auto) (0-0.2) 10^3/ul Absolute Nucleated RBC 10^3/ul Nucleated RBC % Sodium (133-145) mmol/L Potassium (3.5-5.0) mmol/L Chloride (101-111) mmol/L Carbon Dioxide (22-32) mmol/L Anion Gap (2-11) mmol/L BUN (6-24) mg/dL Creatinine (0.67-1.17) mg/dL Est GFR ( Amer) (>60) Est GFR (Non-Af Amer) (>60) BUN/Creatinine Ratio (8-20) Glucose (70-100) mg/dL Lactic Acid (0.5-2.0) mmol/L Calcium (8.6-10.3) mg/dL Magnesium (1.9-2.7) mg/dL Total Bilirubin (0.2-1.0) mg/dL AST (13-39) U/L ALT (7-52) U/L Alkaline Phosphatase (34-104) U/L Total Creatine Kinase (10-223) U/L Troponin I (<0.04) ng/mL Total Protein (6.4-8.9) g/dL Albumin (3.2-5.2) g/dL Globulin (2-4) g/dL Albumin/Globulin Ratio (1-3) Urine Color Yellow Urine Appearance Clear Urine pH 6.0 (5-9) Ur Specific [place] 1.018 (1.010-1.030) Urine Protein Negative (Negative) Urine Ketones Negative (Negative) Urine Blood Negative (Negative) Urine Nitrate Negative (Negative) Urine Bilirubin Negative (Negative) Urine Urobilinogen Negative (Negative) Ur Leukocyte Esterase Negative (Negative) Urine Glucose Negative (Negative) Result Diagrams: 03/31/17 16:59 03/31/17 16:59 Lab Statement: Any lab studies that have been ordered have been reviewed, and results considered in the medical decision making process. - Radiology CXR Xray Interpretation: Positive (See Comments) - IMPRESSION: No evidence for acute intrathoracic disease. Radiology Interpretation Completed By: Radiologist - EKG 9033 Cardiac Rate: Other Rate - 80 bpm EKG Interpretation: Left axis deviation. No STEMI. Altered Mental Statu Course/Dx - Diagnoses Differential Diagnosis/HQI/PQRI: Medication Reaction, Metabolic Disorder, Other - uti, pneumonia Discharge Diagnoses: Dementia Discharge - Discharge Plan Condition: Stable Disposition: HOME Patient Education Materials: Dementia (ED) Referrals: Mohinder Ordaz MD [Primary Care Provider] - The documentation as recorded by the Jorge velazquez Alok accurately reflects the service I personally performed and the decisions made by , Mauricio Bonds MD.
== END 2017-03-31 19:21 | disposition home or self-care (01) ==
LOC: ED 14:27
DX: F03.90 Unspecified dementia, unspecified severity, without behavioral disturbance, psychotic disturbance, mood disturbance, and anxiety (principal); R41.82 Altered mental status, unspecified; R53.1 Weakness; Z87.891 Personal history of nicotine dependence
CPT/HCPCS: 36415; 71010; 80053; 81003; 82550; 83605; 83735; 84484; 85025; 93005; 99283

== ENCOUNTER 2017-06-14 18:31 | Inpatient (IN) | payer MEDICARE ==
[2017-06-14] MEDS ORDERED: NS 0.9% 1000 ML*IV.FLUID IV ONE (19:47)
[2017-06-14] MEDS ORDERED: Ondansetron INJ* 2 MG/ML VIAL IV ONE (19:47)
[2017-06-14 20:18] LABS: Hematocrit 38 % (42-52); Hemoglobin 12.4 g/dl (14.0-18.0); Mean Corpuscular HGB Conc 33 g/dl (31-36); Mean Corpuscular Hemoglobin 30 pg (27-31); Mean Corpuscular Volume 90 fL (80-94); Mean Platelet Volume 7 um3 (7.4-10.4); Red Cell Distribution Width 14 % (10.5-15); White Blood Count 19.5 10^3/ul (3.5-10.8)
[2017-06-14] MEDS ORDERED: Acetaminophen TAB* 325 MG PO ONE (20:27)
[2017-06-14] MEDS ORDERED: cefTRIAXone(*) 1 GM in NS 0.9% 50 ML* 50 ML IVPB ONE (20:27)
[2017-06-14] MEDS ORDERED: Azithromycin IV(*) 500 MG in NS 0.9% 250 ML* 250 ML IVPB ONE (20:28)
[2017-06-14 20:33] LABS: Albumin 3.7 g/dL (3.2-5.2); BUN/Creatinine Ratio 18.2 (8-20); EGFR African American 122.9 (>60); EGFR Non-African American 95.6 (>60); Globulin 3.1 g/dL (2-4); Potassium 3.5 mmol/L (3.5-5.0); Total Bilirubin 1.8 mg/dL (0.2-1.0); Total Protein 6.8 g/dL (6.4-8.9)
[2017-06-14 20:34] LABS: Troponin I 0.01 ng/mL (<0.04)
--- NOTE | 2017-06-14 20:34 | RAD ---
INDICATION: Fever COMPARISON: March 31, 2017 TECHNIQUE: An AP portable view obtained at 2012 hours is submitted. FINDINGS: Bones/Soft Tissues: There are no acute bony findings. Cardiomediastinal: The cardiomediastinal silhouette is normal. Lungs: There are no infiltrates. Pleura: There are no pleural effusions. Other: None IMPRESSION: NO ACTIVE DISEASE.
[2017-06-14] MEDS ORDERED: metroNIDAZOLE IV 500 MG/100ML* 500 MG/100 ML BAG IVPB ONE (20:57)
[2017-06-14 21:01] LABS: Urine Bacteria Absent (Absent); Urine Bilirubin Negative (Negative); Urine Glucose Negative (Negative); Urine Nitrite Negative (Negative)
--- NOTE | 2017-06-14 21:33 | ED ---
Dariusz Hudson Benjamin, scribed for Minoo De Jesus MD on 06/14/17 at 1942 . HPI Febrile Illness - HPI Summary HPI Summary: 87yo male BIBA c/o N/V and fever of 102.5F. Pt has hx of dementia and is unable to give HPI. LEVEL 5 Caveat - Dementia. Pt is non verbal. - History of Current Complaint Chief Complaint: EDGeneral Hx Obtained From: Patient Hx From Patient Unobtainable Due To: Dementia - Additional Pertinent History Primary Care Physician: [id number] - Allergy/Home Medications Allergies/Adverse Reactions: Allergies Allergy/AdvReac Type Severity Reaction Status Date / Time Lisinopril AdvReac Mild Coughing Verified 06/14/17 19:47 PMH/Surg Hx/FS Hx/Imm Hx Endocrine/Hematology History: Reports: Hx Diabetes Cardiovascular History: Reports: Hx Deep Vein Thrombosis, Hx Hypertension Denies: Hx Pacemaker/ICD History: Reports: Other Problems/Disorders - prostate ca, radiation Musculoskeletal History: Reports: Hx Back Problems - Fusion L4-S1, Other Musculoskeletal History - L total knee replacemtn, fusion S1, L4, L5 Denies: Hx Scoliosis Sensory History: Reports: Hx Contacts or Glasses Denies: Hx Hearing Aid Opthamlomology History: Reports: Hx Contacts or Glasses Neurological History: Reports: Hx Dementia, Other Neuro Impairments/Disorders - alzheimers Psychiatric History: Reports: Other Psychiatric Issues/Disorders - alzheimers Denies: Hx Panic Disorder - Cancer History Cancer Type, 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 All Other Systems Reviewed And Are Negative: No Physical Exam Triage Information Reviewed: Yes Vital Signs On Initial Exam: Initial Vitals Temp Pulse Resp BP Pulse Ox 101.4 F 101 14 136/71 96 06/14/17 19:48 06/14/17 19:48 06/14/17 19:48 06/14/17 19:48 06/14/17 19:48 Vital Signs Reviewed: Yes Completion Of Physical Exam Limited Due To: Dementia, Level 5 Skin: Positive: Warm, Skin Color Reflects Adequate Perfusion, Dry Head/Face: Positive: Normal Head/Face Inspection Neurological: Positive: Disoriented. Negative: Alert, Oriented to Person Place , Time Diagnostics - Vital Signs Vital Signs Temp Pulse Resp BP Pulse Ox 06/14/17 20:30 97 20 124/71 95 06/14/17 20:13 98 22 95 06/14/17 20:09 96 06/14/17 19:48 101.4 F 101 14 136/71 96 - Laboratory Lab Results: Lab Results 06/14/17 06/14/17 06/14/17 Range/Units 19:52 19:52 19:52 WBC 19.5 H (3.5-10.8) 10^3/ul RBC 4.20 (4.0-5.4) 10^6/ul Hgb 12.4 L (14.0-18.0) g/dl Hct 38 L (42-52) % MCV 90 (80-94) fL MCH 30 (27-31) pg MCHC 33 (31-36) g/dl RDW 14 (10.5-15) % Plt Count 286 (150-450) 10^3/ul MPV 7 L (7.4-10.4) um3 Neut % (Auto) 92.0 H (38-83) % Lymph % (Auto) 2.1 L (25-47) % [place] % (Auto) 5.8 (1-9) % Eos % (Auto) 0 (0-6) % Baso % (Auto) 0.1 (0-2) % Absolute Neuts (auto) 17.9 H (1.5-7.7) 10^3/ul Absolute Lymphs (auto) 0.4 L (1.0-4.8) 10^3/ul Absolute Monos (auto) 1.1 H (0-0.8) 10^3/ul Absolute Eos (auto) 0 (0-0.6) 10^3/ul Absolute Basos (auto) 0 (0-0.2) 10^3/ul Absolute Nucleated RBC 0 10^3/ul Nucleated RBC % 0 INR (Anticoag Therapy) 1.01 (0.89-1.11) APTT 30.1 (26.0-36.3) seconds Sodium 134 (133-145) mmol/L Potassium 3.5 (3.5-5.0) mmol/L Chloride 102 (101-111) mmol/L Carbon Dioxide 25 (22-32) mmol/L Anion Gap 7 (2-11) mmol/L BUN 14 (6-24) mg/dL Creatinine 0.77 (0.67-1.17) mg/dL Est GFR ( Amer) 122.9 (>60) Est GFR (Non-Af Amer) 95.6 (>60) BUN/Creatinine Ratio 18.2 (8-20) Glucose 184 H (70-100) mg/dL Lactic Acid (0.5-2.0) mmol/L Calcium 9.0 (8.6-10.3) mg/dL Total Bilirubin 1.80 H (0.2-1.0) mg/dL AST 394 H (13-39) U/L ALT 623 H (7-52) U/L Alkaline Phosphatase 380 H (34-104) U/L Troponin I 0.01 (<0.04) ng/mL Total Protein 6.8 (6.4-8.9) g/dL Albumin 3.7 (3.2-5.2) g/dL Globulin 3.1 (2-4) g/dL Albumin/Globulin Ratio 1.2 (1-3) Urine Color Urine Appearance Urine pH (5-9) Ur Specific [place] (1.010-1.030) Urine Protein (Negative) Urine Ketones (Negative) Urine Blood (Negative) Urine Nitrate (Negative) Urine Bilirubin (Negative) Urine Urobilinogen (Negative) Ur Leukocyte Esterase (Negative) Urine WBC (Auto) (Absent) Urine RBC (Auto) (Absent) Urine Bacteria (Absent) Urine Glucose (Negative) Urine Ascorbic Acid (Negative) 06/14/17 06/14/17 Range/Units 19:52 20:40 WBC (3.5-10.8) 10^3/ul RBC (4.0-5.4) 10^6/ul Hgb (14.0-18.0) g/dl Hct (42-52) % MCV (80-94) fL MCH (27-31) pg MCHC (31-36) g/dl RDW (10.5-15) % Plt Count (150-450) 10^3/ul MPV (7.4-10.4) um3 Neut % (Auto) (38-83) % Lymph % (Auto) (25-47) % [place] % (Auto) (1-9) % Eos % (Auto) (0-6) % Baso % (Auto) (0-2) % Absolute Neuts (auto) (1.5-7.7) 10^3/ul Absolute Lymphs (auto) (1.0-4.8) 10^3/ul Absolute Monos (auto) (0-0.8) 10^3/ul Absolute Eos (auto) (0-0.6) 10^3/ul Absolute Basos (auto) (0-0.2) 10^3/ul Absolute Nucleated RBC 10^3/ul Nucleated RBC % INR (Anticoag Therapy) (0.89-1.11) APTT (26.0-36.3) seconds Sodium (133-145) mmol/L Potassium (3.5-5.0) mmol/L Chloride (101-111) mmol/L Carbon Dioxide (22-32) mmol/L Anion Gap (2-11) mmol/L BUN (6-24) mg/dL Creatinine (0.67-1.17) mg/dL Est GFR ( Amer) (>60) Est GFR (Non-Af Amer) (>60) BUN/Creatinine Ratio (8-20) Glucose (70-100) mg/dL Lactic Acid 0.8 (0.5-2.0) mmol/L Calcium (8.6-10.3) mg/dL Total Bilirubin (0.2-1.0) mg/dL AST (13-39) U/L ALT (7-52) U/L Alkaline Phosphatase (34-104) U/L Troponin I (<0.04) ng/mL Total Protein (6.4-8.9) g/dL Albumin (3.2-5.2) g/dL Globulin (2-4) g/dL Albumin/Globulin Ratio (1-3) Urine Color [place] Urine Appearance Clear Urine pH 5.0 (5-9) Ur Specific [place] 1.020 (1.010-1.030) Urine Protein Negative (Negative) Urine Ketones Trace H (Negative) Urine Blood 1+ H (Negative) Urine Nitrate Negative (Negative) Urine Bilirubin Negative (Negative) Urine Urobilinogen Negative (Negative) Ur Leukocyte Esterase Negative (Negative) Urine WBC (Auto) Absent (Absent) Urine RBC (Auto) 2+(6-10/hpf) H (Absent) Urine Bacteria Absent (Absent) Urine Glucose Negative (Negative) Urine Ascorbic Acid * H (Negative) Result Diagrams: 06/14/17 19:52 06/14/17 19:52 Lab Statement: Any lab studies that have been ordered have been reviewed, and results considered in the medical decision making process. - Radiology CXR Xray Interpretation: No Acute Changes Radiology Interpretation Completed By: Radiologist - ED physician has reviewed this radiology report and agrees. - EKG 2000. Cardiac Rate: NL - 81bpm EKG Rhythm: Sinus Rhythm EKG Interpretation: LVH. Inferior Qs EKG Comparison: No Significant Change - from 03/31/17 Course/Dx - Course Course Of Treatment: Reviewed pts medication and allergy lists. Blood pressure noted. Discussed with Dr. Mendoza (Hospitalist) at 20:22. 87 yo male with vomiting and fever initial wbc of 19k without urine back so pt covered with ceftriaxone and azithromycin and upon seeing pt 30 cc/kg of ns ordered. tylenol also ordered. Chemistry shows elevated biliary enzymes that are new from last labs done here, case had already been discussed with Reji,case discussed again after u/s ordered and flagyl ordered, Reji will add cipro a bit later. U/s not yet completed, pt did not exhibit abd pain on initial exam. Exam done again at 930 pm, pt now verbal (wasn't on initial exam) and now denies tenderness with ruq exam, hr much improved - Diagnoses Provider Diagnoses: Gall bladder disease, Sepsis Discharge - Discharge Plan Condition: Stable Disposition: ADMITTED TO [facility] Referrals: Mohinder Ordaz MD [Primary Care Provider] - The documentation as recorded by the Dariusz velazquez Benjamin accurately reflects the service I personally performed and the decisions made by me, Minoo De Jeuss MD.
--- NOTE | 2017-06-14 21:38 | RAD ---
INDICATION: Abdominal pain. None COMPARISON: CT December 14, 2016 TECHNIQUE: Longitudinal and transverse scans of the right upper quadrant were obtained. Doppler interrogation of the hepatic and portal venous system was performed. FINDINGS: Liver: The liver is normal in size and echogenicity. There are no focal masses. The liver measures 15.6 cm in cephalocaudal dimension. Vessels: There is normal hepatic and portal venous flow. Bile ducts: There is no evidence of intrahepatic or extrahepatic ductal dilatation. The common duct measures 0.6 cm. Gallbladder: There is biliary sludge and cholelithiasis. The gallbladder wall is mildly thickened measuring 0.36 cm. There is no pericholecystic fluid. The patient was not tender over the gallbladder. Pancreas: Pancreas not visualized due to bowel gas. Right kidney: The right kidney is normal in size and echogenicity. There are no masses or calculi. There is no evidence of hydronephrosis. The right kidney measures 11.6 x 4.8 x 5.4 cm. IVC and aorta: The aorta and superior vena cava appear normal. Fluid: There is no ascites. Other: There is mild soft tissue prominence at the level of the xiphoid which may be related to the configuration of the xiphoid which is noted to project anteriorly on the earlier CT. IMPRESSION: GALLBLADDER SLUDGE AND CHOLELITHIASIS
[2017-06-14] MEDS: Enoxaparin(*) 40 MG/0.4 ML SYR SUBCUT SCH (22:54)
--- NOTE | 2017-06-14 23:55 | HP ---
HISTORY AND PHYSICAL: DATE OF ADMISSION: 06/14/17 PRIMARY CARE PHYSICIAN: Dr. Mohinder Ordaz. CHIEF COMPLAINT: Sent from [facility] for [facility] and vomiting. HISTORY OF PRESENT ILLNESS: This is an 87-year-old man with advanced dementia presenting from [facility], where he was found to have nausea and vomiting twice today that was associated with a fever. Mr. Snyder is unable to provide any history to me due to his advanced dementia; however, he cannot tell me that he does not understand why he is here. He does not recall having any nausea, vomiting, or abdominal pain, and denies any of those symptoms currently. PAST MEDICAL HISTORY: Dementia, moderate aortic stenosis, hypertension, hyperlipidemia, diabetes, TIA, prostate cancer. MEDICATIONS: His current home medications are: 1. Aspirin 81 mg daily. 2. Vitamin B12 500 mcg daily. 3. Colace 100 mg daily. SOCIAL HISTORY: His medical decision maker is his daughter, Ann. Her phone number is [phone]. He currently lives at [facility]. REVIEW OF SYSTEMS: He denies fevers, chills, headache, chest pain, shortness of breath, nausea, vomiting, constipation, diarrhea, abdominal pain, dysuria. PHYSICAL EXAMINATION GENERAL: Alert, well-appearing man, in no distress. VITAL SIGNS: Temperature 101.4, heart rate 101, respiratory rate 14, pulse ox 96 % on room air, blood pressure 136/71. HEENT: Pupils equal, round, and reactive to light. Moist mucosa. No pharyngeal exudates. NECK: No lymphadenopathy. No JVP. LUNGS: Clear bilaterally. CHEST: Systolic murmur at the right upper sternal border with radiation throughout. PMI nondisplaced. ABDOMEN: Soft, nontender, nondistended. Negative Petty's. Liver nonpalpable. Spleen nonpalpable. Bowel sounds normoactive. EXTREMITIES: No edema. Pulses 2+ bilaterally. No rashes. NEUROLOGIC: Oriented only to self. Strength 5+ throughout. Follows commands appropriately and answers simple yes or no questions. DIAGNOSTIC STUDIES/LAB DATA: On admission, white blood cells 19.5, hemoglobin 12.4, platelets 286. Sodium 134, potassium 3.5, chloride 102, bicarb 25, BUN 14 , creatinine 0.77. Troponin 0.01. Total bilirubin 1.8, ALT 623, AST 394, alk phos 380. Chest x-ray shows no active disease. EKG shows normal sinus rhythm, left axis deviation, first-degree AV block, and T - wave inversion isolated in lead III. ASSESSMENT AND PLAN: This is an 87-year-old man with history of dementia, presenting from [facility] facility with nausea, vomiting, and fever, and found to have elevated liver enzymes. 1. Sepsis. With a suspected source of the gallbladder; however, a right upper quadrant ultrasound performed in the emergency department is equivocal. While it shows gallbladder sludge and cholelithiasis with a mildly thickened gall- bladder, there is no CBD dilation and no intrahepatic or extrahepatic dilation. Still in the setting of his fever, cholecystitis remains the most likely source. The elevation of his bilirubin and alkaline phosphatase, however, suggest a more complex process by choledocholithiasis or cholangitis, but again the ultrasound does not support this. Furthermore, Petty's sign is negative on exam. Based on these findings, I am treating him empirically overnight with ceftriaxone and metronidazole and ordering a HIDA scan for the morning. I discussed these findings with his daughter, Ann, who is unsure if she would choose to pursue surgical intervention. She wants to talk to her siblings tonight and discuss options and she does wish to proceed with the HIDA scan. We will continue this conversation with her. 2. Hypertension. He is not on any medications at home for this. 3. Hyperlipidemia. He is not on any medications. 4. Transient ischemic attack. Continue aspirin daily. 5. Disposition. The patient is DNR and DNI. 6. DVT prophylaxis. Lovenox subcutaneously. 7. Diet. N.p.o. for now. [id number]/[facility] #: [id number] [facility]
[2017-06-15] MEDS: NS 0.9% 1000 ML* 1,000 ML IV SCH ×2 (00:23→14:10)
[2017-06-15 06:29] LABS: Hematocrit 33 % (42-52); Hemoglobin 10.9 g/dl (14.0-18.0); Mean Corpuscular HGB Conc 33 g/dl (31-36); Mean Corpuscular Hemoglobin 30 pg (27-31); Mean Corpuscular Volume 90 fL (80-94); Mean Platelet Volume 8 um3 (7.4-10.4); Red Blood Count 3.62 10^6/ul (4.0-5.4); Red Cell Distribution Width 14 % (10.5-15); White Blood Count 12.5 10^3/ul (3.5-10.8)
[2017-06-15 06:40] LABS: Albumin 3.6 g/dL (3.2-5.2); BUN/Creatinine Ratio 18.7 (8-20); Calcium 8.3 mg/dL (8.6-10.3); EGFR African American 126.7 (>60); EGFR Non-African American 98.5 (>60); Potassium 3.7 mmol/L (3.5-5.0); Total Bilirubin 2.5 mg/dL (0.2-1.0); Total Protein 5.6 g/dL (6.4-8.9)
--- NOTE | 2017-06-15 10:24 | RAD ---
Indication: Sepsis. Cholelithiasis and biliary sludge on ultrasound. Nausea and vomiting. Elevated bilirubin. Comparison: RIGHT upper quadrant ultrasound June 14, 2017. Technique: 6.300 mCi of Tc-99m Choletec was injected IV. Serial anterior images of the abdomen were obtained immediately following radiopharmaceutical administration to 60 minutes. 90 minute and 120 minute delayed images obtained. Report: There is normal hepatic uptake and excretion of the radiopharmaceutical. Bowel activity visualized at approximately 50 minutes. The gallbladder is not visualized on the initial 60 minute serial images or on the delayed 90 or 120 minute images consistent with cystic duct obstruction. There is significant persistent activity at the liver on the delayed images suggesting hepatocellular dysfunction. IMPRESSION: 1. Cystic duct obstruction consistent with acute cholecystitis. 2. Patent common bile duct. 3. Hepatocellular dysfunction.
[2017-06-15] MEDS: metroNIDAZOLE IV 500 MG/100ML* 500 MG/100 ML BAG IVPB SCH ×2 (10:38→17:38)
--- NOTE | 2017-06-15 13:55 | PN ---
Progress Note - Progress Note Date of Service: 06/15/17 Note: Surgery Note (full consult dictated): S: 87 yo male w/ advanced dementia admitted 06/14 after a couple of episodes of emesis and a temp to 102+ yesterday at [facility]. He is not able to help with hx. At present he denies pain, nausea or vomiting, and would like to eat. O: Vital Signs - 8 hr 06/15/17 07:31 Temperature 98.0 F Pulse Rate 63 Respiratory 16 Rate Blood Pressure 132/68 (mmHg) O2 Sat by Pulse 97 Oximetry Intake and Output Last 24 Hours 06/13/17 06/14/17 06/15/17 06/16/17 06:59 06:59 06:59 06:59 Intake Total 3017 0 Output Total 0 Balance 3017 0 Weight 170 lb Intake: IV Fluids 3017 NS (0.9%) 597 Oral 0 0 Output: Urine 0 Other: Estimated Void Large Medium # Bowel Movements 0 # Voids 1 1 Heart: reg;w/ systolic murmur Lungs: clear Abd: +BS; flat, nondistended; soft; nontender to palp; no masses; neg Petty's. Labs: Laboratory Tests 06/14/17 06/14/17 06/15/17 19:52 19:52 00:30 WBC 19.5 H Hgb Neut % (Auto) 92.0 H Glucose 184 H Lactic Acid 0.8 Total Bilirubin 1.80 H AST 394 H ALT 623 H Alkaline Phosphatase 380 H Lipase 11 06/15/17 06/15/17 05:40 05:40 WBC 12.5 H Hgb 10.9 L Neut % (Auto) 85.1 H Glucose 149 H Lactic Acid Total Bilirubin 2.50 H AST 248 H ALT 505 H Alkaline Phosphatase 290 H Lipase US and HIDA reviewed; +GS w/ GB wall thickening; nl CBD; non-vis GB on HIDA; patent CBD SOURCE: BLOOD,VENO SPDESC: ORDERED: Blood Cult COMMENTS: Verbal to [id number] by BIJAN at 0930 on 06/15/17. Results read back accurately. Procedure Result Reported Site Aerobic Culture Bottle PENDING Anaerobic Culture Bottle Preliminary 06/15/17- 0930 ML Anaerobic Btl Gram Stain Gram Negative Bacilli A: acute calculous cholecystitis w/ bacteremia, improved at present on Rocephin/ Flagyl P: discussed w/ Drs. Villalobos and Alida. Agree w/ cont IV abx; will follow closely; consider perc drainage of GB if not clinically improving; surgery is still a consideration pending confirmation on his most recent ECHO. Discussed w / his daughter Ann.
--- NOTE | 2017-06-15 14:22 | PN ---
Subjective Date of Service: 06/15/17 Interval History: Patient seen this morning. Confused, denies pain. A bit aggravated he hasn't eaten any food. Spoke with daughter, Ann, this morning as well after HIDA results. Says she would want surgical input but feels like she probably would not want surgery. Still had not heard back from her siblings. Family History: Unchanged from Admission Social History: Unchanged from Admission Past Medical History: Unchanged from Admission Objective Active Medications: Enoxaparin Sodium (Lovenox(*)) 40 mg SUBCUT Q24H MARYAM Ceftriaxone Sodium 1,000 mg/ (Sodium Chloride) 50 mls @ 200 mls/hr IVPB Q24H MARYAM Metronidazole/Sodium Chloride (Flagyl 500 Mg Ivpb*) 500 mg in 100 mls @ 100 mls /hr IVPB Q8H MARYAM Sodium Chloride (Ns 0.9% 1000 Ml*) 1,000 mls @ 125 mls/hr IV PER [facility] Vital Signs 06/14/17 06/14/17 06/14/17 21:30 22:00 22:30 Temperature Pulse Rate 81 77 77 Respiratory 18 17 20 Rate Blood Pressure 107/62 106/61 (mmHg) O2 Sat by Pulse 95 95 97 Oximetry 06/15/17 07:31 Temperature 98.0 F Pulse Rate 63 Respiratory 16 Rate Blood Pressure 132/68 (mmHg) O2 Sat by Pulse 97 Oximetry Oxygen Devices in Use Now: None Appearance: Elderly, M, laying in bed in NAD Eyes: No Scleral Icterus Ears/Nose/Mouth/Throat: - - Dry MM Neck: NL Appearance and Movements; NL JVP Respiratory: Symmetrical Chest Expansion and Respiratory Effort, Clear to Auscultation Cardiovascular: NL Sounds; No Murmurs; No JVD, RRR Abdominal: NL Sounds; No Tenderness; No Distention Lymphatic: No Cervical Adenopathy Extremities: No Edema Skin: No Rash or Ulcers Neurological: - - Alert, oriented to self and hospital, no focal deficits Result Diagrams: 06/15/17 05:40 06/15/17 05:40 Microbiology and Other Data: Microbiology 06/15/17 01:05 Nasal Screen MRSA (PCR)(MONA) - Final Nasal Mrsa Negative Assess/Plan/Problems-Billing Assessment: Acute cholecystitis, gram negative bacteremia in an 87 yo M with hx of advanced dementia, HTN, moderate aortic stenosis, TIA - Patient Problems (1) Acute cholecystitis Current Visit: Yes Comment: Shown on HIDA scan, GNB in blood cx. Continue IV CTX/Flagyl. Appreciate Surgery consult, for now will treat conservatively with IV ABx. Echo from 03/2017 showed moderate aortic stenosis which had not changed from two years prior. (2) TIA (transient ischemic attack) Current Visit: No Comment: Continue ASA daily. (3) Hypertension Current Visit: No Comment: Not on any medications (4) DVT prophylaxis Current Visit: No Comment: Lovenox Status and Disposition: Inpatient for acute cholecystitis
--- NOTE | 2017-06-15 16:49 | CONS ---
CC: Dr. Eber Ordaz * SURGICAL CONSULTATION DATE OF CONSULT: 06/15/2017. Inpatient, room 411. ATTENDING PHYSICIAN: Dr. Francisco J Irwin (CASSANDRA Chandler dictating). CHIEF COMPLAINT: Acute cholecystitis. HISTORY OF PRESENT ILLNESS: This is an 87-year-old male with advanced dementia , a resident at [facility], who was sent from the [facility] to the ED yesterday after a couple of episodes of emesis and fever to 102+. His history is obtained primarily from the chart record as the patient is unable to give detailed history of recent events. He denies pain at present. He denies nausea or vomiting and in fact would like to eat. PAST MEDICAL HISTORY: Advanced dementia, moderate aortic stenosis, hypertension , hyperlipidemia, diabetes mellitus, TIA, and prostate cancer (not presently requiring any treatment for hypertension, hyperlipidemia, or diabetes). PAST SURGICAL HISTORY: It appears as though he has had bilateral knee replacements based on his scars, though that is not confirmed. He denies any prior abdominal surgeries and there are no apparent incisions. CURRENT MEDICATIONS: 1. Colace 100 mg once daily. 2. Vitamin B12 500 mcg sublingual daily. 3. Aspirin 81 mg daily. 4. He is also currently receiving Ceftriaxone and Flagyl IV, as well as Lovenox subcutaneously. FAMILY HISTORY: Not obtained. SOCIAL HISTORY: He is a resident at [facility]. His daughter, Ann, is his healthcare decision maker. REVIEW OF SYSTEMS: No additions to above. See also admission history and physical. PHYSICAL EXAM: General: Well-nourished, well-developed, pleasant and comfortable appearing elderly male in no acute distress. Skin: Warm and dry, no suspicious rashes or lesions. Vital Signs: Height 5'9", weight 170 pounds. Temperature on admission 101.4, down to 98 this morning, blood pressure 132/68 , pulse 63, respirations 16, room air saturation 97 percent. HEENT: Pupils equal and round, reactive. EOM's intact. No conjunctival pallor or scleral icterus. Oropharynx: No intraoral lesions. Neck: No lymphadenopathy or thyromegaly. Heart: Regular rate and rhythm. No murmur noted. Lungs: Clear to auscultation. Abdomen: Flat, nondistended, bowel sounds present, soft, nontender to palpation. No palpable masses or organomegaly. Negative Petty sign. Genitalia and rectal not done. Back: No spinous process or CVA tenderness. Extremities: No edema. Neurological: Grossly intact, though with significant dementia. LABORATORY DATA/DIAGNOSTIC STUDIES: Laboratory of note, white blood cell count on admission 19,500 down to 12,500 this morning, hemoglobin this morning 10.9, there is a left shift in the differential; glucose ranging from 149 to 184, total bilirubin 1.8 up to 2.5 today, AST 394 on admission down to 248 today, ALT 623 down to 505 today, alkaline phosphatase 380 down to 290 today, lactic acid and lipase were both normal. Blood culture which is pending shows gram negative bacilli. Ultrasound of the gallbladder did show stones and sludge, as well as gallbladder wall thickening at 3.5 mm. The common duct was normal in size. HIDA scan performed this morning showed nonvisualization of the gallbladder. The common duct was patent. IMPRESSION: Acute calculus cholecystitis with bacteremia in an elderly patient with advanced dementia with apparent improvement on current IV antibiotic regimen. PLAN: Plan was discussed with Dr. Irwin and Dr. Villalobos, as well as the patient's daughter Jyoti. As he is improving on current IV antibiotic regimen and the patient's family would like to avoid surgery, we will continue the same. If things worsen, consideration could be given for percutaneous drainage of the gallbladder. The patient's daughter is agreeable. We will continue to follow with you while he is in house. Final question as to whether Ursodiol should be considered upon discharge. CASSANDRA CHANDLER [id number]/[facility] #: [id number] [place]
[2017-06-15] MEDS: cefTRIAXone VIAL(*) 1,000 MG in NS 0.9% 50 ML* 50 ML IVPB SCH (21:39)
[2017-06-15] MEDS: Enoxaparin(*) 40 MG/0.4 ML SYR SUBCUT SCH (21:39)
[2017-06-16] MEDS: metroNIDAZOLE IV 500 MG/100ML* 500 MG/100 ML BAG IVPB SCH ×3 (00:49→16:26)
[2017-06-16] MEDS: NS 0.9% 1000 ML* 1,000 ML IV SCH (03:27)
[2017-06-16 06:49] LABS: Hematocrit 36 % (42-52); Hemoglobin 12.2 g/dl (14.0-18.0); Mean Corpuscular HGB Conc 34 g/dl (31-36); Mean Corpuscular Hemoglobin 30 pg (27-31); Mean Corpuscular Volume 90 fL (80-94); Mean Platelet Volume 8 um3 (7.4-10.4); Red Blood Count 4.02 10^6/ul (4.0-5.4); Red Cell Distribution Width 14 % (10.5-15)
[2017-06-16 06:58] LABS: Albumin 3.4 g/dL (3.2-5.2); Calcium 8.7 mg/dL (8.6-10.3); Direct Bilirubin 0.5 mg/dL (0.03-0.18); EGFR African American 126.7 (>60); EGFR Non-African American 98.5 (>60); Indirect Bilirubin 0.7 mg/dL (0.3-1.0); Potassium 3.7 mmol/L (3.5-5.0); Total Bilirubin 1.2 mg/dL (0.2-1.0); Total Protein 6.4 g/dL (6.4-8.9)
--- NOTE | 2017-06-16 11:40 | SURGPN ---
Subjective - Introduction -: Reports doing well, denies any complaints. Tolerating clear liquid diet. Denies nausea, vomiting, fever or chills. - Medications -: Active Medications Generic Name Dose Route Start Last Admin Trade Name Rah PRN Reason Stop Dose Admin Enoxaparin Sodium 40 mg 06/14/17 22:00 06/15/17 21:39 Lovenox(*) SUBCUT 40 mg Q24H MARYAM Administration Ceftriaxone Sodium 1,000 mg/ 50 mls @ 200 mls/hr 06/15/17 21:00 06/15/17 21: 39 Sodium Chloride IVPB 200 mls/hr Q24H MARYAM Administration Metronidazole/Sodium Chloride 500 mg in 100 mls @ 100 mls/hr 06/15/17 08:00 06/16/17 10:59 Flagyl 500 Mg Ivpb* IVPB 100 mls/hr Q8H MARYAM Administration Sodium Chloride 1,000 mls @ 125 mls/hr 06/14/17 22:15 06/16/17 03:27 Ns 0.9% 1000 Ml* IV 125 mls/hr PER RATE MARYAM Administration Objective - Objective -: Awake and alert, a little confused at times, but appears comfortable and in NAD - Intake and Output -: Intake & Output 06/14/17 06/15/17 06/16/17 06/17/17 06:59 06:59 06:59 06:59 Intake Total 847 4723 Output Total 0 500 Balance 847 4223 Weight 170 lb Intake: IV Fluids 847 4013 ABX - CEFTRIAXONE 50 NS (0.9%) 597 3763 flagyl 200 IVPB 100 ABX - CEFTRIAXONE 100 Oral 0 610 Output: Urine 0 500 Other: Estimated Void Large Large # Bowel Movements 0 0 # Voids 1 1 Surgical Physical Exam - Comments -: VSS, afebrile, Tmax 98.1 Heart RRR, no murmurs Lungs CTA bilat. Abdomen soft, NT, ND. No guarding or rigidity. No rebound tenderness. Petty's sign negative. Ext. without edema. Assessment and Plan - Assessment -: An 87 y/o male with acute calculous cholecystitis, improving with IV Abx and conservative measures. - Plan Additional Comments: Continue Abx He appears to be responding well to conservative measures No surgical indications at this time Advance diet slowly as tolerated
--- NOTE | 2017-06-16 14:37 | PN ---
Subjective Date of Service: 06/16/17 Interval History: Patient seen this afternoon, pleasantly confused. Pleased with full liquid diet. Denies any pain. Family History: Unchanged from Admission Social History: Unchanged from Admission Past Medical History: Unchanged from Admission Objective Active Medications: Enoxaparin Sodium (Lovenox(*)) 40 mg SUBCUT Q24H MARYAM Ceftriaxone Sodium 1,000 mg/ (Sodium Chloride) 50 mls @ 200 mls/hr IVPB Q24H MARYAM Metronidazole/Sodium Chloride (Flagyl 500 Mg Ivpb*) 500 mg in 100 mls @ 100 mls /hr IVPB Q8H MARYAM Sodium Chloride (Ns 0.9% 1000 Ml*) 1,000 mls @ 125 mls/hr IV PER RATE COUNTS INCLUDE 234 BEDS AT THE [facility] Vital Signs 06/15/17 06/15/17 06/15/17 20:17 21:40 23:49 Temperature 97.7 F 98.1 F Pulse Rate 75 70 Respiratory 20 20 16 Rate Blood Pressure 140/75 145/72 (mmHg) O2 Sat by Pulse 97 99 99 Oximetry 06/16/17 04:12 Temperature 97.4 F Pulse Rate 72 Respiratory 20 Rate Blood Pressure 143/71 (mmHg) O2 Sat by Pulse 97 Oximetry Oxygen Devices in Use Now: None Appearance: Elderly, M, laying in bed in NAD Eyes: No Scleral Icterus Ears/Nose/Mouth/Throat: Mucous Membranes Moist Neck: NL Appearance and Movements; NL JVP Respiratory: Symmetrical Chest Expansion and Respiratory Effort, Clear to Auscultation Cardiovascular: RRR, - - AMARA Abdominal: - - Soft, NTND, BS+ Lymphatic: No Cervical Adenopathy Extremities: No Edema Skin: No Rash or Ulcers Neurological: - - Alert, oriented to self, no focal deficits Result Diagrams: 06/16/17 06:15 06/16/17 06:15 Assess/Plan/Problems-Billing Assessment: Acute cholecystitis, gram negative bacteremia in an 87 yo M with hx of advanced dementia, HTN, moderate aortic stenosis, TIA - Patient Problems (1) Acute cholecystitis Current Visit: Yes Comment: Shown on HIDA scan, E. coli in blood cx. Continue IV CTX/Flagyl. Appreciate Surgery consult, for now will treat conservatively with IV ABx. Echo from 03/2017 showed moderate aortic stenosis which had not changed from two years prior. Slowly advance diet (2) TIA (transient ischemic attack) Current Visit: No Comment: Continue ASA daily. (3) Hypertension Current Visit: No Comment: Not on any medications (4) DVT prophylaxis Current Visit: No Comment: Lovenox Status and Disposition: Inpatient for acute cholecystitis
[2017-06-16] MEDS: Aspirin Low Dose CHEW TAB* 81 MG PO SCH (16:26)
[2017-06-16] MEDS: cefTRIAXone VIAL(*) 1,000 MG in NS 0.9% 50 ML* 50 ML IVPB SCH (20:46)
[2017-06-16] MEDS: Enoxaparin(*) 40 MG/0.4 ML SYR SUBCUT SCH (22:12)
[2017-06-17] MEDS: metroNIDAZOLE IV 500 MG/100ML* 500 MG/100 ML BAG IVPB SCH ×3 (00:12→16:07)
[2017-06-17] MEDS: Aspirin Low Dose CHEW TAB* 81 MG PO SCH (09:08)
--- NOTE | 2017-06-17 17:15 | PN ---
Subjective Date of Service: 06/17/17 Interval History: Patient without any complaints but is confused which is apparently his baseline. Family History: Unchanged from Admission Social History: Unchanged from Admission Past Medical History: Unchanged from Admission Objective Active Medications: Aspirin (Aspirin Low Dose Tab*) 81 mg PO DAILY [facility] Last Admin: 06/17/17 09:08 Dose: 81 mg Enoxaparin Sodium (Lovenox(*)) 40 mg SUBCUT Q24H [facility] Last Admin: 06/16/17 22:12 Dose: 40 mg Ceftriaxone Sodium 1,000 mg/ (Sodium Chloride) 50 mls @ 200 mls/hr IVPB Q24H [facility] Last Admin: 06/16/17 20:46 Dose: 200 mls/hr Metronidazole/Sodium Chloride (Flagyl 500 Mg Ivpb*) 500 mg in 100 mls @ 100 mls /hr IVPB Q8H [facility] Last Admin: 06/17/17 16:07 Dose: 100 mls/hr Vital Signs 06/16/17 06/16/17 06/16/17 19:34 20:49 23:23 Temperature 97.9 F 97.6 F Pulse Rate 75 73 Respiratory 20 22 16 Rate Blood Pressure 147/80 164/75 (mmHg) O2 Sat by Pulse 100 100 99 Oximetry 06/17/17 06/17/17 06/17/17 04:41 06:29 08:00 Temperature 97.5 F 98.4 F Pulse Rate 73 73 Respiratory 16 16 16 Rate Blood Pressure 151/68 158/77 (mmHg) O2 Sat by Pulse 94 96 96 Oximetry Oxygen Devices in Use Now: None Appearance: Elderly man lying in bed in NAD Eyes: No Scleral Icterus Ears/Nose/Mouth/Throat: Mucous Membranes Moist Neck: No Thyroid Enlargement, Masses Respiratory: Clear to Auscultation Cardiovascular: - - S1S2 omar Abdominal: NL Sounds; No Tenderness; No Distention, No Hepatosplenomegaly Lymphatic: No Cervical Adenopathy Extremities: No Edema, No Clubbing, Cyanosis Skin: No Rash or Ulcers Neurological: - - Alert and oriented X 1 Result Diagrams: 06/16/17 06:15 06/16/17 06:15 Additional Lab and Data: Lab Results 06/14/17 06/14/17 06/14/17 Range/Units 19:52 19:52 19:52 WBC 19.5 H (3.5-10.8) 10^3/ul RBC 4.20 (4.0-5.4) 10^6/ul Hgb 12.4 L (14.0-18.0) g/dl Hct 38 L (42-52) % MCV 90 (80-94) fL MCH 30 (27-31) pg MCHC 33 (31-36) g/dl RDW 14 (10.5-15) % Plt Count 286 (150-450) 10^3/ul MPV 7 L (7.4-10.4) um3 Neut % (Auto) 92.0 H (38-83) % Lymph % (Auto) 2.1 L (25-47) % [place] % (Auto) 5.8 (1-9) % Eos % (Auto) 0 (0-6) % Baso % (Auto) 0.1 (0-2) % Absolute Neuts (auto) 17.9 H (1.5-7.7) 10^3/ul Absolute Lymphs (auto) 0.4 L (1.0-4.8) 10^3/ul Absolute Monos (auto) 1.1 H (0-0.8) 10^3/ul Absolute Eos (auto) 0 (0-0.6) 10^3/ul Absolute Basos (auto) 0 (0-0.2) 10^3/ul Absolute Nucleated RBC 0 10^3/ul Nucleated RBC % 0 INR (Anticoag Therapy) 1.01 (0.89-1.11) APTT 30.1 (26.0-36.3) seconds Sodium 134 (133-145) mmol/L Potassium 3.5 (3.5-5.0) mmol/L Chloride 102 (101-111) mmol/L Carbon Dioxide 25 (22-32) mmol/L Anion Gap 7 (2-11) mmol/L BUN 14 (6-24) mg/dL Creatinine 0.77 (0.67-1.17) mg/dL Est GFR ( Amer) 122.9 (>60) Est GFR (Non-Af Amer) 95.6 (>60) BUN/Creatinine Ratio 18.2 (8-20) Glucose 184 H (70-100) mg/dL Lactic Acid (0.5-2.0) mmol/L Calcium 9.0 (8.6-10.3) mg/dL Total Bilirubin 1.80 H (0.2-1.0) mg/dL AST 394 H (13-39) U/L ALT 623 H (7-52) U/L Alkaline Phosphatase 380 H (34-104) U/L Troponin I 0.01 (<0.04) ng/mL Total Protein 6.8 (6.4-8.9) g/dL Albumin 3.7 (3.2-5.2) g/dL Globulin 3.1 (2-4) g/dL Albumin/Globulin Ratio 1.2 (1-3) Urine Color Urine Appearance Urine pH (5-9) Ur Specific [place] (1.010-1.030) Urine Protein (Negative) Urine Ketones (Negative) Urine Blood (Negative) Urine Nitrate (Negative) Urine Bilirubin (Negative) Urine Urobilinogen (Negative) Ur Leukocyte Esterase (Negative) Urine WBC (Auto) (Absent) Urine RBC (Auto) (Absent) Urine Bacteria (Absent) Urine Glucose (Negative) Urine Ascorbic Acid (Negative) 06/14/17 06/14/17 Range/Units 19:52 20:40 WBC (3.5-10.8) 10^3/ul RBC (4.0-5.4) 10^6/ul Hgb (14.0-18.0) g/dl Hct (42-52) % MCV (80-94) fL MCH (27-31) pg MCHC (31-36) g/dl RDW (10.5-15) % Plt Count (150-450) 10^3/ul MPV (7.4-10.4) um3 Neut % (Auto) (38-83) % Lymph % (Auto) (25-47) % [place] % (Auto) (1-9) % Eos % (Auto) (0-6) % Baso % (Auto) (0-2) % Absolute Neuts (auto) (1.5-7.7) 10^3/ul Absolute Lymphs (auto) (1.0-4.8) 10^3/ul Absolute Monos (auto) (0-0.8) 10^3/ul Absolute Eos (auto) (0-0.6) 10^3/ul Absolute Basos (auto) (0-0.2) 10^3/ul Absolute Nucleated RBC 10^3/ul Nucleated RBC % INR (Anticoag Therapy) (0.89-1.11) APTT (26.0-36.3) seconds Sodium (133-145) mmol/L Potassium (3.5-5.0) mmol/L Chloride (101-111) mmol/L Carbon Dioxide (22-32) mmol/L Anion Gap (2-11) mmol/L BUN (6-24) mg/dL Creatinine (0.67-1.17) mg/dL Est GFR ( Amer) (>60) Est GFR (Non-Af Amer) (>60) BUN/Creatinine Ratio (8-20) Glucose (70-100) mg/dL Lactic Acid 0.8 (0.5-2.0) mmol/L Calcium (8.6-10.3) mg/dL Total Bilirubin (0.2-1.0) mg/dL AST (13-39) U/L ALT (7-52) U/L Alkaline Phosphatase (34-104) U/L Troponin I (<0.04) ng/mL Total Protein (6.4-8.9) g/dL Albumin (3.2-5.2) g/dL Globulin (2-4) g/dL Albumin/Globulin Ratio (1-3) Urine Color Airam Urine Appearance Clear Urine pH 5.0 (5-9) Ur Specific [place] 1.020 (1.010-1.030) Urine Protein Negative (Negative) Urine Ketones Trace H (Negative) Urine Blood 1+ H (Negative) Urine Nitrate Negative (Negative) Urine Bilirubin Negative (Negative) Urine Urobilinogen Negative (Negative) Ur Leukocyte Esterase Negative (Negative) Urine WBC (Auto) Absent (Absent) Urine RBC (Auto) 2+(6-10/hpf) H (Absent) Urine Bacteria Absent (Absent) Urine Glucose Negative (Negative) Urine Ascorbic Acid * H (Negative) Microbiology and Other Data: Microbiology 06/15/17 01:05 Nasal Screen MRSA (PCR)([facility]) - Final Nasal Mrsa Negative Assess/Plan/Problems-Billing Assessment: Acute cholecystitis, gram negative bacteremia in an 87 yo M with hx of advanced dementia, HTN, moderate aortic stenosis, TIA - Patient Problems (1) Acute cholecystitis Current Visit: Yes Status: Acute Code(s): K81.0 - ACUTE CHOLECYSTITIS SNOMED Code(s): 09339923 Comment: Shown on HIDA scan, E. coli in blood cx. Much improved. Advance to low fat diet. WBC normal with improving lfts. Continue Flagyl/Rocephin. (2) Hypertension Current Visit: No Status: Chronic Code(s): I10 - ESSENTIAL (PRIMARY) HYPERTENSION SNOMED Code(s): 64144656 Comment: Not on any medications. Has been running slightly high. Consider new medication in AM. (3) DVT prophylaxis Current Visit: No Status: Acute Code(s): JGY5955 - SNOMED Code(s): 537633926 Comment: Lovenox (4) TIA (transient ischemic attack) Current Visit: No Status: Suspected Priority: High Onset Date: 11/21/14 Comment: Continue ASA daily. Status and Disposition: Inpatient for acute cholecystitis
[2017-06-17] MEDS: Enoxaparin(*) 40 MG/0.4 ML SYR SUBCUT SCH (21:25)
[2017-06-17] MEDS: cefTRIAXone VIAL(*) 1,000 MG in NS 0.9% 50 ML* 50 ML IVPB SCH (21:25)
[2017-06-18] MEDS: metroNIDAZOLE IV 500 MG/100ML* 500 MG/100 ML BAG IVPB SCH ×3 (00:14→15:45)
[2017-06-18] MEDS: Aspirin Low Dose CHEW TAB* 81 MG PO SCH (09:00)
[2017-06-18] MEDS: amLODIPine TAB* 5 MG PO SCH (09:00)
[2017-06-18] MEDS: cefTRIAXone VIAL(*) 1,000 MG in NS 0.9% 50 ML* 50 ML IVPB SCH (22:09)
[2017-06-18] MEDS: Enoxaparin(*) 40 MG/0.4 ML SYR SUBCUT SCH (22:09)
[2017-06-19] MEDS: metroNIDAZOLE IV 500 MG/100ML* 500 MG/100 ML BAG IVPB SCH ×2 (02:40→08:13)
--- NOTE | 2017-06-19 04:47 | DS ---
CC: Dr. Mohinder Ordaz * DISCHARGE SUMMARY: DATE OF ADMISSION: 06/14/17 DATE OF DISCHARGE: 06/19/17 ADMISSION DIAGNOSES: 1. Sepsis. 2. Hypertension, 3. Hyperlipidemia. 4. History of transient ischemic attack. DISCHARGE DIAGNOSES: 1. Sepsis. 2. Hypertension, 3. Hyperlipidemia. 4. History of transient ischemic attack. 5. Acute cholecystitis. HOSPITAL COURSE: The patient is an 87-year-old gentleman who presented to [facility] with a chief complaint of nausea and vomiting by the senior care facility. Please see H and P for further details. Patient was thought to be septic at first and the source was suspected to be the gallbladder. A surgical consult was obtained. It was decided not to pursue surgical intervention at the time and conservative measures will be implemented. Patient actually responded quite well to this. He continued to improve every day. His white count which was initially 19,500 went down to 9000. His LFTs also improved day by day. By the date of discharge, he was tolerating a low fat diet, feeling better and anxious to leave with no complaints. PHYSICAL EXAMINATION: On the date of discharge, elderly man sitting up in bed, in no acute distress. Vital Signs: Temperature 98.9 degrees,heart rate is 71 beats per minute, respiratory rate 17 breaths per minute, pulse ox is 97%, blood pressure 117/61. HEENT: Normocephalic, atraumatic. Pupils equal, round , and reactive to light. Moist mucous membranes. Neck: Supple with no JVD, bruits, palpable thyroid or lymphadenopathy. Chest: Clear to auscultation and percussion bilaterally. Cardiovascular Exam: S1, S2 appreciated. Abdominal Exam: Positive bowel sounds in all 4 quadrants, soft, nontender, nondistended. Extremities: No cyanosis, clubbing or edema, +2 peripheral pulses bilaterally. Neuro: He was alert and oriented x1. Moves all extremities. Skin: No rashes or abnormalities. STUDIES DONE WHILE IN THE HOSPITAL: Chest x-ray, 06/14/17, impression: By Radiology, no active disease. Gallbladder ultrasound 06/14/17 and 06/20/17, is interpreted by Radiology, gallbladder sludge and cholelithiasis. HIDA scan, , is interpreted by Radiology, cystic duct obstruction consistent with acute cholecystitis, patent common bile duct, hepatocellular dysfunction. DISCHARGE MEDICATIONS: 1. Docusate 100 mg daily. 2. Vitamin B12 500 mcg daily. 3. Aspirin 81 mg daily. 4. Amlodipine 5 mg daily. 5. Augmentin 875 mg twice daily for 5 more days. DISCHARGE PLAN: The patient will be discharged back to his custodial residence. Patient will complete the entire course of antibiotics. He will follow up with his PCP within 1 week. Return to the ED if symptoms recur. TIME SPENT: Over 40 minutes was spent on this discharge, more than 25 minutes of which was spent in direct [id number] contact with the patient in evaluation , physical exam, counseling, and coordination of care. [id number]/[facility] #: [id number] ELMA
[2017-06-19 07:49] VITALS: BP 121/66
[2017-06-19] MEDS: Aspirin Low Dose CHEW TAB* 81 MG PO SCH (08:13)
[2017-06-19] MEDS: amLODIPine TAB* 5 MG PO SCH (08:14)
== END 2017-06-19 14:30 | disposition home health service (06) | DRG 872 ==
LOC: ED 18:31 → MED 21:28
PROVIDERS: ADMIT Internal Medicine; ATTEND Internal Medicine
DX: A41.9 Sepsis, unspecified organism (principal); K80.00 Calculus of gallbladder with acute cholecystitis without obstruction; G30.9 Alzheimer's disease, unspecified; F02.80 Dementia in other diseases classified elsewhere, unspecified severity, without behavioral disturbance, psychotic disturbance, mood disturbance, and anxiety; E11.9 Type 2 diabetes mellitus without complications; I10 Essential (primary) hypertension; E78.5 Hyperlipidemia, unspecified; I35.0 Nonrheumatic aortic (valve) stenosis; Z66 Do not resuscitate; Z96.653 Presence of artificial knee joint, bilateral; Z98.49 Cataract extraction status, unspecified eye; Z90.79 Acquired absence of other genital organ(s); Z85.46 Personal history of malignant neoplasm of prostate; Z85.840 Personal history of malignant neoplasm of eye; Z92.3 Personal history of irradiation; Z82.49 Family history of ischemic heart disease and other diseases of the circulatory system; Z83.3 Family history of diabetes mellitus; Z87.891 Personal history of nicotine dependence; Z86.718 Personal history of other venous thrombosis and embolism; Z88.8 Allergy status to other drugs, medicaments and biological substances; Z98.1 Arthrodesis status; Z86.73 Personal history of transient ischemic attack (TIA), and cerebral infarction without residual deficits; Z79.82 Long term (current) use of aspirin
CPT/HCPCS: 36415; 71010; 76705; 78226; 80053; 81003; 81015; 82248; 83605; 83690; 84484; 85025; 85610; 85730; 87040; 87077; 87186; 87205; 87641; 93005; A9270-GY; A9537; J0456; J0696; J1650; J2405

== ENCOUNTER → 2018-06-23 14:52 | Emergency (ER) | payer MEDICARE ==
[~2018-06-23 14:52] MED LIST: NS 0.9% 100 ML* 1,000 ML IV SCH
--- NOTE | 2018-06-23 16:09 | ED ---
GI/ HPI - HPI Summary HPI Summary: LEVEL 5 CAVEAT: HPI LIMITED DUE TO PATIENT CONDITION, ALZHEIMERS, DEMENTIA. This patient is a 88 year old M presenting to [facility] from senior living with black tarry stool that presented twice today. He ambulates with a walker. - History of Current Complaint Chief Complaint: EDGIBleed Time Seen by Provider: 06/23/18 15:24 Stated Complaint: POSS GI BLEED Hx Obtained From: Patient Hx From Patient Unobtainable Due To: Dementia - LEVEL 5 CAVEAT Pain Intensity: 0 - out of 10 Associated Signs and Symptoms: Positive: Black Tarry Stool - Additional Pertinent History Primary Care Physician: [id number] - Allergy/Home Medications Allergies/Adverse Reactions: Allergies Allergy/AdvReac Type Severity Reaction Status Date / Time lisinopril Allergy Coughing Verified 06/23/18 16:08 Home Medications: Home Medications glipiZIDE [Glipizide ER] 1 tab PO DAILY 06/23/18 [History Confirmed 06/23/18] metFORMIN* [Glucophage 1000 MG TAB *] 1 tab PO BID 06/23/18 [History Confirmed 06/23/18] PMH/Surg Hx/FS Hx/Imm Hx Previously Healthy: No Endocrine/Hematology History: Reports: Hx Diabetes Cardiovascular History: Reports: Hx Deep Vein Thrombosis, Hx Hypertension Denies: Hx Pacemaker/ICD History: Reports: Other Problems/Disorders - prostate ca, radiation Musculoskeletal History: Reports: Hx Back Problems - Fusion L4-S1, Other Musculoskeletal History - L total knee replacemtn, fusion S1, L4, L5 Denies: Hx Scoliosis Sensory History: Denies: Hx Contacts or Glasses, Hx Hearing Aid Opthamlomology History: Denies: Hx Contacts or Glasses Neurological History: Reports: Hx Dementia, Other Neuro Impairments/Disorders - alzheimers Psychiatric History: Reports: Other Psychiatric Issues/Disorders - alzheimers Denies: Hx Panic Disorder - Cancer History Cancer Type, 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 Positive: Other - Black tarry stool All Other Systems Reviewed And Are Negative: No Physical Exam - Summary Physical Exam Summary: GENERAL: Patient is a well-developed and nourished M who is lying comfortable in the stretcher. Patient is not in any acute respiratory distress. HEAD AND FACE: Normocephalic EYES: PERRLA, EOMI x 2. EARS: Hearing grossly intact. MOUTH: Oropharynx within normal limits. NECK: Supple, trachea is midline, no adenopathy, no JVD, no carotid bruit. CHEST: Symmetric, no tenderness at palpation LUNGS: Clear to auscultation bilaterally. No wheezing or crackles. CVS: Regular rate and rhythm, S1 and S2 present, grade 3/4 systolic murmur, no rubs or gallops. ABDOMEN: Soft, non-tender. Bowel sounds are normal. No abdominal abnormal pulsations. Ventral hernia, non-tender. tarry stool per rectum EXTREMITIES: Full ROM in all major joints, no edema, no cyanosis or clubbing. NEURO: Alert and oriented to person but not place or time. Speech is normal and follows commands. SKIN: Dry and warm. Triage Information Reviewed: Yes Vital Signs On Initial Exam: Initial Vitals Temp Pulse Resp BP Pulse Ox 98.0 F 89 16 125/65 99 06/23/18 15:02 06/23/18 15:02 06/23/18 15:02 06/23/18 15:02 06/23/18 15:02 Vital Signs Reviewed: Yes Diagnostics - Vital Signs Vital Signs Temp Pulse Resp BP Pulse Ox 06/23/18 15:51 91 19 115/66 100 06/23/18 15:50 89 15 99 06/23/18 15:02 98.0 F 89 16 125/65 99 - Laboratory Result Diagrams: 06/23/18 16:37 06/23/18 16:37 Lab Statement: Any lab studies that have been ordered have been reviewed, and results considered in the medical decision making process. GIGU Course/Dx - Course Course Of Treatment: This patient is a 88 year old M presenting to [facility] from senior living with black tarry stool. Pt has Alz and dementia. Workup is remarkable for positive Hemoccult for black tarry stool, a hemoglobin of 9.5 which is down from previous hemoglobin of 12 a year ago. Pt will transferred to [facility]. Dr. Head hospitalist at [facility] has accepted the pt. Patient stable upon transfer - Diagnoses Provider Diagnoses: GI bleed Discharge - Sign-Out/Discharge Documenting (check all that apply): Patient Departure - Transf - Discharge Plan Condition: Stable Disposition: TRANS HIGHER LVL OF CARE FAC Referrals: Mohinder Ordaz MD [Primary Care Provider] - - Billing Disposition and Condition Condition: STABLE Disposition: Trans Higher Lvl of Care Fac - Attestation Statements Document Initiated by Scribe: Yes Documenting Scribe: Brandon Peters Provider For Whom Scribe is Documenting (Include Credential): Dr. Raquel Phillips MD Scribe Attestation: I, Brandon Peters, scribed for Dr. Raquel Phillips MD on 06/23/18 at 1737. Scribe Documentation Reviewed: Yes Provider Attestation: The documentation as recorded by the Brandon velazquez accurately reflects the service I personally performed and the decisions made by me, Dr. Raquel Phillips MD Consult Consult: AT 1645: DISCUSSED CASE WITH TRANSFER CENTER AT 1707: SPOKE WITH GI DOCTOR AT [facility]. WILL ACCEPT PT, BUT WILL CONTACT [facility] HOSPITALIST AND HAVE THAT INDIVIDUAL CALL [facility]. AT 1730: SPOKE WITH DR. HEAD HOSPITALIST: WILL ACCEPT PT FOR TRANSFER.
[2018-06-23 16:48] LABS: ABS Basophils 0.1 10^3/ul (0-0.2); ABS Eosinophils 0.2 10^3/ul (0-0.6); ABS Lymphocytes 3.4 10^3/ul (1.0-4.8); ABS Monocytes 0.8 10^3/ul (0-0.8); ABS Nucleated RBC 0 10^3/ul; Eosinophil % 2.1 % (0-6); Hematocrit 28 % (42-52); Hemoglobin 9.5 g/dl (14.0-18.0); Lymphocyte % 32.4 % (25-47); Mean Corpuscular HGB Conc 34 g/dl (31-36); Mean Corpuscular Hemoglobin 31 pg (27-31); Mean Corpuscular Volume 92 fL (80-94); Mean Platelet Volume 7.5 um3 (7.4-10.4); Nucleated Red Blood Cells % 0.2; Platelet Count 278 10^3/ul (150-450); Red Blood Count 3.08 10^6/ul (4.00-5.40); Red Cell Distribution Width 14 % (10.5-15); White Blood Count 10.5 10^3/ul (3.5-10.8)
[2018-06-23 16:57] LABS: INR 0.86 (0.77-1.02)
[2018-06-23 17:20] LABS: EGFR Non-African American 101.4 (>60)
[2018-06-23 18:00] VITALS: BP 116/71
== END | disposition short-term general hospital (02) ==
LOC: ED 14:52
DX: K92.2 Gastrointestinal hemorrhage, unspecified (principal); E11.9 Type 2 diabetes mellitus without complications; Z85.46 Personal history of malignant neoplasm of prostate; F03.90 Unspecified dementia, unspecified severity, without behavioral disturbance, psychotic disturbance, mood disturbance, and anxiety; Z79.899 Other long term (current) drug therapy; Z87.891 Personal history of nicotine dependence; Z79.84 Long term (current) use of oral hypoglycemic drugs; Z88.8 Allergy status to other drugs, medicaments and biological substances
CPT/HCPCS: 36415; 80053; 82272; 85025; 85610; 85730; 86850; 86900; 86901; 99283

== ENCOUNTER 2018-09-07 14:23 | Inpatient (IN) | payer MEDICARE ==
--- NOTE | 2018-09-07 14:41 | ED ---
Syncope/Near Syncope - HPI Summary HPI Summary: This patient is a 88 year old M with a PMHx of dementia presenting to [facility] with a chief complaint of LOC for 1-2 minutes since earlier today while sitting at a table at his alf. Via EMS, patient was pale and had weakness. Patient denies fever, chills, abdominal pain, PAYAN, and CP. Patient has a DNR and the family does not want any invasive procedures to be done. He also has a PMHx of gallbladder problems that led to sepsis. - History Of Current Complaint Chief Complaint: EDSyncope Time Seen by Provider: 09/07/18 14:28 Hx Obtained From: Patient, EMS Onset/Duration: Sudden Onset, Lasting Minutes - 1-2 minutes Timing: Minutes - lasted 1-2 minutes Context: Witnessed Activity At Onset: At Rest - Seated at a table Associated Signs And Symptoms: Weakness - via EMS, Other - Pale (via EMS) - Allergies/Home Medications Allergies/Adverse Reactions: Allergies Allergy/AdvReac Type Severity Reaction Status Date / Time lisinopril Allergy Coughing Verified 06/23/18 16:08 Home Medications: Home Medications Amoxicillin PO (*) [Amoxicillin 500 MG CAP*] 2,000 mg PO DAILY PRN 09/07/18 [ History Confirmed 09/07/18] LORazepam [Ativan 0.5 MG TAB] 0.5 mg PO BID PRN 09/07/18 [History Confirmed 04/18] Pantoprazole TAB (NF) [Protonix TAB (NF)] 40 mg PO DAILY 09/07/18 [History Confirmed 09/07/18] Triamcinolone 0.1% Oint (NF) [Triamcinolone Acetonide] 1 applic TOPICAL DAILY [History Confirmed 09/07/18] PMH/Surg Hx/FS Hx/Imm Hx Endocrine/Hematology History: Reports: Hx Diabetes Cardiovascular History: Reports: Hx Deep Vein Thrombosis, Hx Hypertension Denies: Hx Pacemaker/ICD History: Reports: Other Problems/Disorders - prostate ca, radiation Musculoskeletal History: Reports: Hx Back Problems - Fusion L4-S1, Other Musculoskeletal History - L total knee replacemtn, fusion S1, L4, L5 Denies: Hx Scoliosis Sensory History: Denies: Hx Contacts or Glasses, Hx Hearing Aid Opthamlomology History: Denies: Hx Contacts or Glasses Neurological History: Reports: Hx Dementia, Other Neuro Impairments/Disorders - alzheimers Psychiatric History: Reports: Other Psychiatric Issues/Disorders - alzheimers Denies: Hx Panic Disorder - Cancer History Cancer Type, 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 Negative: Fever, Chills Negative: Chest Pain Negative: Abdominal Pain Negative: Headache All Other Systems Reviewed And Are Negative: Yes Physical Exam - Summary Physical Exam Summary: VITAL SIGNS: Reviewed. GENERAL: Patient is a well-developed and nourished MALE with a history of dementia lying comfortable in the stretcher.Patient is not in any acute respiratory distress. HEAD AND FACE: No signs of trauma. No ecchymosis, hematomas or skull depressions. No sinus tenderness. EYES: PERRLA, EOMI x 2, No injected conjunctiva, no nystagmus. No photophobia. EARS: Hearing grossly intact. Ear canals and tympanic membranes are within normal limits. MOUTH: Oropharynx within normal limits. NECK: Supple, trachea is midline, no adenopathy, no JVD, no carotid bruit, no c- spine tenderness, neck with full ROM. No meningeal signs, no Kernig's or brudzinskis signs. CHEST: Symmetric, no tenderness at palpation LUNGS: Clear to auscultation bilaterally. No wheezing or crackles. CVS: Regular rate and rhythm, S1 and S2 present, no murmurs or gallops appreciated. ABDOMEN: Soft, non-tender. Ventral hernia that is not incarcerated. Bowel sounds are normal. EXTREMITIES: FROM in all major joints, no edema, no cyanosis or clubbing. NEURO: Alert but not oriented. No acute neurological deficits. Speech is normal and follows commands. SKIN: Dry and warm GCS: 15 Triage Information Reviewed: Yes Vital Signs On Initial Exam: Initial Vitals Temp Pulse Resp BP Pulse Ox 97.4 F 88 16 135/69 96 09/07/18 14:27 09/07/18 14:27 09/07/18 14:27 09/07/18 14:27 09/07/18 14:27 Vital Signs Reviewed: Yes Diagnostics - Vital Signs Vital Signs Temp Pulse Resp BP Pulse Ox 09/07/18 14:27 97.4 F 88 16 135/69 96 - Laboratory Result Diagrams: 09/07/18 14:41 09/07/18 14:41 Lab Statement: Any lab studies that have been ordered have been reviewed, and results considered in the medical decision making process. - Radiology Chest X-Ray Radiology Interpretation Completed By: Radiologist Summary of Radiographic Findings: 15:31. No active cardiopulmonary disease is noted. ED Physician has reviewed this imaging report. - CT Brain CT CT Interpretation Completed By: Radiologist Summary of CT Findings: 15:30. NO ACUTE INTRACRANIAL PATHOLOGY. ED Physician has reviewed this imaging report. - Ultrasound No standard instances Ultrasound Interpretation Completed By: Radiologist Summary of Ultrasound Findings: 18:53. Abdomen Ultrasound. Gallstones with wall thickening and pericholecystic fluid suggestive of cholecystitis. Borderline dilated CBD. ED Physician has reviewed this imaging report. - EKG 14:47 Cardiac Rate: NL - 83 BPM EKG Rhythm: Sinus Rhythm ST Segment: Normal Course/Dx Assessment/Plan: This patient is a 88 year old M with a PMHx of dementia presenting to [facility] with a chief complaint of LOC for 1-2 minutes since earlier today while sitting at a table at his alf. Via EMS, patient was pale and had weakness. Patient denies fever, chills, abdominal pain, PAYAN, and CP. Patient has a DNR and the family does not want any invasive procedures to be done. He also has a PMHx of gallbladder problems that led to sepsis. Blood work without any significant abnormality except for WBCs of 15.9, hemoglobin 10.8 hematocrit 33 with normal platelets. Glucose 151. Lactic acid is 3.3 magnesium is 1.6 alkaline phosphatase of 119 and TSH is 9.73. Head CT shows no acute pathology. Chest x-ray impression: No acute pathology. Urinalysis positive for UTI. Therefore the patient was given Rocephin. This may be the cause that the patient had a syncopal episode. However because of the syncopal episode I discussed my physical exam and findings with Dr. Galarza who accepted the patient for admission. The patient is hemodynamically stable. I ordered a right upper quadrant ultrasound since the patient has history of cholelithiasis. However the patient is a have any abdominal pain. The test results of the ultrasound with follow-up with Dr. Galarza. - Diagnoses Provider Diagnoses: Syncope, UTI (urinary tract infection) - Physician Notifications Discussed Care of Patient With: Xenia Galarza - Hospitalist Time Discussed With Above Provider: 17:18 Instructed by Provider To: Admit As Inpatient Discharge - Sign-Out/Discharge Documenting (check all that apply): Patient Departure - Admit by Dr. Galarza - Discharge Plan Condition: Stable Disposition: ADMITTED TO [facility] - Billing Disposition and Condition Condition: STABLE Disposition: Admitted to [facility] - Attestation Statements Document Initiated by Jamalibe: Yes Documenting Scribe: Geo Coronel Provider For Whom Jon is Documenting (Include Credential): Patrick Frankel MD Scribe Attestation: Geo Hudson, scribed for Patrick Frankel MD on 09/07/18 at 2120. Scribe Documentation Reviewed: Yes Provider Attestation: The documentation as recorded by the Geo velazquez accurately reflects the service I personally performed and the decisions made by me, Patrick Frankel MD Status of Scribe Document: Viewed
[2018-09-07 14:55] LABS: ABS Basophils 0.1 10^3/ul (0-0.2); ABS Eosinophils 0.1 10^3/ul (0-0.6); ABS Lymphocytes 2.1 10^3/ul (1.0-4.8); ABS Neutrophils 12.7 10^3/ul (1.5-7.7); ABS Nucleated RBC 0 10^3/ul; Eosinophil % 0.7 %; Hematocrit 33 % (42-52); Hemoglobin 10.8 g/dl (14.0-18.0); Lymphocyte % 13.3 %; Mean Corpuscular HGB Conc 32 g/dl (31-36); Mean Corpuscular Hemoglobin 27 pg (27-31); Mean Corpuscular Volume 84 fL (80-94); Mean Platelet Volume 7.5 fL (7.4-10.4); Nucleated Red Blood Cells % 0; Platelet Count 317 10^3/ul (150-450); Red Blood Count 3.99 10^6/ul (4.00-5.40); Red Cell Distribution Width 15 % (10.5-15); White Blood Count 15.9 10^3/ul (3.5-10.8)
[2018-09-07 15:15] LABS: EGFR Non-African American 71.3 (>60)
[2018-09-07] MEDS ORDERED: Magnesium Sulfate 1 GM IV* 1 GM/100 ML BAG IV ONE (15:55)
[2018-09-07 17:08] LABS: Urine Appearance Cloudy; Urine Blood Negative (Negative); Urine Color Yellow; Urine Ketones Negative (Negative); Urine Protein Negative (Negative); Urine Red Blood Cell Absent (Absent); Urine Specific Gravity 1.017 (1.010-1.030); Urine Urobilinogen Negative (Negative); Urine White Blood Cell 3+(>20/hpf) (Absent)
[2018-09-07] MEDS ORDERED: cefTRIAXone(*) 1 GM in NS 0.9% 50 ML* 50 ML IVPB ONE (17:19)
[2018-09-07] MEDS ORDERED: NS 0.9% 1000 ML* 1,000 ML IV ONE ×2 (17:21→18:07)
[2018-09-07] MEDS ORDERED: Magnesium Sulfate 2 GM IV* 2 GM/50 ML BAG IVPB ONE (17:56)
[2018-09-07] MEDS ORDERED: Dextrose 50% Syringe 50 ML* 25 GM/50 ML SYRINGE IV PUSH PRN (17:56)
[2018-09-07] MEDS ORDERED: Acetaminophen TAB* 325 MG PO PRN (17:56)
[2018-09-07] MEDS ORDERED: Ondansetron INJ* 2 MG/ML VIAL IV PRN (17:56)
[2018-09-07] MEDS ORDERED: NS 0.9% 1000 ML* 1,000 ML IV SCH (18:00)
[2018-09-07] MEDS ORDERED: LORazepam TAB(*) 0.5 MG PO PRN (18:03)
[2018-09-07] MEDS ORDERED: Piperacillin/Tazobac ADVAN(*) 3.375 GM in NS 0.9% 100 ML* 100 ML IVPB ONE (21:05)
[2018-09-07] MEDS: Heparin VIAL(*) 5000 UNITS/ML VIAL (FIVE THOUSAND) SUBCUT SCH (21:27)
--- NOTE | 2018-09-07 21:30 | HP ---
CC: Dr. Ordaz.* HISTORY AND PHYSICAL: DATE OF ADMISSION: 09/07/18 PRIMARY CARE PROVIDER: Dr. Mohinder Ordaz ATTENDING PHYSICIAN WHILE IN THE HOSPITAL: Fozia Maya MD * (report dictated by Luis Felipe Lo NP) CHIEF COMPLAINT: A question of syncope. HISTORY OF PRESENTING ILLNESS: Mr. Snyder is an 88-year-old male patient with significant dementia at baseline, is essentially nonverbal. He comes in to the ED today according to nursing notes and the patient really is unable to give any history because of his advanced dementia. He came into the ED today because he had an episode where he was sitting down and apparently he had passed out for approximately a minute day. The patient does not recall this and he really does not offer any complaints. Nursing staff at [facility] was concerned and they called 911 and sent him over to the hospital. There have been no reports of fevers, chills, vomiting, diarrhea, or abdominal pain, but when he came it was noted that he had an elevated white count, his lactic was elevated and there was concern for possible UTI, so we were asked to evaluate for admission. PAST MEDICAL HISTORY: According to old records include: 1. Aortic stenosis 2. Dementia. 3. Hypertension. 4. Hyperlipidemia. 5. TIA. 6. Diabetes. PAST SURGICAL HISTORY: Unable to obtain. HOME MEDICATIONS: Include: . Ativan 0.5 mg p.o. b.i.d. as needed. 2. Tylenol 650 mg every 6 hours as needed. 3. Amoxicillin 2000 mg p.o. daily as needed. 4. Triamcinolone cream 1 application topically daily. 5. Protonix 40 mg daily. 6. Metformin 1000 mg p.o. b.i.d. 7. Glipizide 2.5 mg daily. 8. Amlodipine 5 mg daily. 9. Colace 100 mg daily. 10. B12 500 mcg p.o. daily. ALLERGIES: Include LISINOPRIL. FAMILY HISTORY: Unable to be obtained. SOCIAL HISTORY: He resides at [facility]. Surrogate decision maker is his daughter. REVIEW OF SYSTEMS: Unable to be obtained from the patient given advanced dementia. PHYSICAL EXAMINATION GENERAL: At this time, Mr. Snyder is an 88-year-old male patient. He is sitting in the ED stretcher. He does not appear to be in any acute distress. He appears to well nourished and well developed. VITAL SIGNS: Blood pressure 129/76, pulse 92, respirations 18, O2 sat 98%, temperature 97.4. HEENT: Head: Atraumatic. Normocephalic. Eyes: EOMs are intact. Sclerae anicteric and not pale. NECK: Supple. Throat: Oral mucosa appears to be dry. No oropharyngeal erythema. LUNGS: Clear to auscultation bilaterally. There are no wheezes, rales, or rhonchi. HEART: Sounds S1, S2. He did have grade 2/3 systolic murmur in the aortic listening area. ABDOMEN: Soft, it was flat, nontender. He does have a ventral hernia. He has tenderness in the suprapubic area. NEUROLOGICAL: He is awake. He is alert. He is oriented to himself only. No gross focal deficit. SKIN: Intact. DIAGNOSTIC STUDIES/LAB DATA: WBC of 15.9, RBC of 3.99, hemoglobin of 10.8, hematocrit of 33, and platelet count of 317. Sodium 138, potassium 4, chloride 104, bicarb 26, BUN 18, creatinine 0.99, glucose 151, lactic 3.3, calcium 9.0, mag 1.6. Total bili 0.5, AST 49, ALT 24, alk phos 119. Troponin 0. CRP at 2.28, albumin 4, lipase 15. TSH of 9.73. Urine with positive nitrites, 2+ leukocyte esterase, 2+ wbc. He had a brain CT obtained today, which showed no acute intracranial pathology. He had a chest x-ray obtained today, which revealed no active cardiopulmonary disease is noted. He had an EKG obtained today, which does show a normal sinus rhythm with a rate of 83. He had no ST elevation T-wave inversions. He does have an intraventricular conduction delay. When reviewed with the previous EKG , it is similar. Abdominal ultrasound pending. Old medical records reviewed. ASSESSMENT AND PLAN: Mr. Snyder is an 88-year-old male patient coming into the hospital today with complaints of possible syncopal episode. We were asked to evaluate for admission. He will be admitted under inpatient status for: 1. Syncope. Etiology again is unclear because of the lack of history. He certainly may have fainted, but I think at this point we will place him on telemetry. We will repeat an echo, get orthostatic blood pressures and we will continue to monitor. 2. Sepsis. Again, I think he does have a urinary tract infection. He is nontender on abdominal exam. I have placed him on Rocephin. He will get 30 cc per kg, he got 1 L down here in the ED and I will give him another liter wide open. We will get blood cultures, urine cultures. We will treat with Rocephin. We will continue to follow. We will repeat his lactic. 3. Aortic stenosis. We will continue to monitor and continue supportive care. 4. Dementia with acute delirium, again probably secondary to the urinary tract infection. We will go ahead and place him on antibiotics. We will continue supportive care. 5. Hypertension. Continue meds as prescribed. 6. Hyperlipidemia. Continue meds as prescribed. 7. Transient ischemic attack. Continue with secondary prevention. 8. Recent gastrointestinal bleed, not an active issue currently, now H and H stable. 9. Diabetes. We will put him on lispro sliding scale. 10. Code status: He is a DNR on his chart from [facility]. 11. Fluids, electrolytes, and nutrition: He can have a consistent carb diet. I will replace his magnesium as well. TIME SPENT: On this admission was 60 minutes, greater than half the time was spent [id number] with the patient obtaining my history and physical, other half of the time was spent going over the plan of care with the patient and implementing the plan of care. I did discuss the plan of care with my attending, Dr. Maya, she is in agreement. LUIS FELIPE LO, BALJIT [id number]/CPS #: [id number] ELMA
[2018-09-07] MEDS ORDERED: Zosyn per Pharmacy* NOTE FOLLOW UP SCH (22:00)
[2018-09-08] MEDS: ZOSYN 3.375 GM Q8H per EXTENDED INFUSION IVPB SCH ×4 (02:32→09:36)
[2018-09-08 05:18] LABS: ABS Basophils 0 10^3/ul (0-0.2); ABS Eosinophils 0.1 10^3/ul (0-0.6); ABS Lymphocytes 2.4 10^3/ul (1.0-4.8); ABS Monocytes 0.8 10^3/ul (0-0.8); ABS Neutrophils 5.9 10^3/ul (1.5-7.7); ABS Nucleated RBC 0 10^3/ul; Eosinophil % 1.1 %; Hematocrit 30 % (42-52); Hemoglobin 9.8 g/dl (14.0-18.0); Lymphocyte % 25.7 %; Mean Corpuscular HGB Conc 33 g/dl (31-36); Mean Corpuscular Hemoglobin 27 pg (27-31); Mean Corpuscular Volume 83 fL (80-94); Mean Platelet Volume 7.6 fL (7.4-10.4); Nucleated Red Blood Cells % 0.1; Platelet Count 277 10^3/ul (150-450); Red Blood Count 3.63 10^6/ul (4.00-5.40); Red Cell Distribution Width 14 % (10.5-15); White Blood Count 9.3 10^3/ul (3.5-10.8)
[2018-09-08 05:27] LABS: INR 0.93 (0.77-1.02)
[2018-09-08 05:34] LABS: EGFR Non-African American 80.7 (>60)
[2018-09-08] MEDS: Heparin VIAL(*) 5000 UNITS/ML VIAL (FIVE THOUSAND) SUBCUT SCH ×3 (05:58→20:40)
[2018-09-08] MEDS: Omeprazole CAP* 20 MG PO SCH (07:48)
[2018-09-08] MEDS: Insulin LISPRO* 1 UNITS UNIT SUBCUT SCH ×3 (08:05→16:48)
[2018-09-08] MEDS: Docusate CAP* 100 MG PO SCH (09:40)
[2018-09-08] MEDS: amLODIPine TAB* 5 MG PO SCH (09:40)
[2018-09-08] MEDS ORDERED: Magnesium Sulfate 2 GM IV* 2 GM/50 ML BAG IVPB ONE (13:37)
--- NOTE | 2018-09-08 13:45 | PN ---
Subjective Date of Service: 09/08/18 Interval History: Pt resting comfortably in bed, no acute distress. ROS limited by patient's dementia, however he reports no chest pain, shortness of breath, abdominal pain , nausea/vomiting, suprapubic pain, dysuria. Objective Active Medications: Acetaminophen (Tylenol Tab*) 650 mg PO Q4H PRN PRN Reason: FEVER/PAIN Amlodipine Besylate (Norvasc Tab*) 5 mg PO DAILY [facility] Last Admin: 09/08/18 09:40 Dose: 5 mg Dextrose (D50w Syringe 50 Ml*) 12.5 gm IV PUSH .FOR FS < 60 - SS PRN PRN Reason: FS < 60 Docusate Sodium (Colace Cap*) 100 mg PO DAILY [facility] Last Admin: 09/08/18 09:40 Dose: 100 mg Heparin Sodium (Porcine) (Heparin Vial(*)) 5,000 units SUBCUT Q8HR [facility] Last Admin: 09/08/18 05:58 Dose: 5,000 units Sodium Chloride (Ns 0.9% 1000 Ml*) 1,000 mls @ 100 mls/hr IV PER RATE [facility] Last Admin: 09/07/18 21:27 Dose: 100 mls/hr Piperacillin Sod/Tazobactam (Sod 3.375 gm/ Sodium Chloride) 100 mls @ 25 mls/ hr IVPB Q8H [facility] Last Admin: 09/08/18 09:36 Dose: 25 mls/hr Magnesium Sulfate (Magnesium Sulfate 2 Gm Iv*) 2 gm in 50 mls @ 50 mls/hr IVPB ONCE ONE Stop: 09/08/18 14:36 Insulin Human Lispro (Humalog*) 0 units SUBCUT [facility]; Protocol Last Admin: 09/08/18 08:05 Dose: Not Given Lorazepam (Ativan Tab(*)) 0.5 mg PO BID PRN PRN Reason: ANXIETY Omeprazole (Prilosec Cap*) 20 mg PO DAILY@0730 [facility] Last Admin: 09/08/18 07:48 Dose: 20 mg Ondansetron HCl (Zofran Inj*) 4 mg IV Q6H PRN PRN Reason: NAUSEA Pharmacy Consult (Zosyn Per Pharmacy*) 1 note FOLLOW UP .ZOSYN PER PHARMACY [facility] Vital Signs - 8 hr 09/08/18 09/08/18 07:49 11:24 Temperature 98.4 F 98.0 F Pulse Rate 80 86 Respiratory 20 20 Rate Blood Pressure 138/71 131/76 (mmHg) O2 Sat by Pulse 96 99 Oximetry Oxygen Devices in Use Now: None Eyes: No Scleral Icterus Ears/Nose/Mouth/Throat: NL Teeth, Lips, Gums, Mucous Membranes Moist Neck: NL Appearance and Movements; NL JVP, Trachea Midline Respiratory: Symmetrical Chest Expansion and Respiratory Effort, Clear to Auscultation Cardiovascular: - - 2/6 systolic murmur. RRR. S1S2 Abdominal: NL Sounds; No Tenderness; No Distention Extremities: No Edema Skin: No Rash or Ulcers Neurological: - - Oriented to self only Nutrition: Taking PO's Result Diagrams: 09/08/18 04:58 09/08/18 04:58 Microbiology and Other Data: Microbiology 09/08/18 06:00 Nasal Screen MRSA (PCR) - Final Nasal Mrsa Not Detected Assess/Plan/Problems-Billing Assessment: 88 year old male with PMH of significant dementia presented to [facility] due to concern for syncopal episodes. Pt unable to give history. In ED found to have WBC 15.9 with positive UA. U/S suggestive of cholecystitis. Started on zosyn and surg consult. Surg feels not acute problem. Pt has had these findings chronically and in the past has presented with N/V and abd pain, so this is less likely as pt does not have these symptoms. Also pt's family has refused surgery in the past. New Mobitz II on tele. Will discuss further cards workup with family. - Patient Problems (1) Syncope Current Visit: Yes Status: Acute Code(s): R55 - SYNCOPE AND COLLAPSE SNOMED Code(s): 521609813 Comment: - Orthostatic in the setting of sepsis. Has been given IVF hydration - Also new Mobitz II on tele. Will discuss further cardiology workup with family. - Echo pending (2) UTI (urinary tract infection) Current Visit: Yes Status: Acute Comment: - Continue ceftriaxone. Culture results pending. Pt does not report any dysuria or flank pain, however exam limited by dementia (3) Second degree AV block, Mobitz type II Current Visit: Yes Status: Acute Code(s): I44.1 - ATRIOVENTRICULAR BLOCK, SECOND DEGREE SNOMED Code(s): 59369049 Comment: - Transient while sleeping. No bradycardia and BP stable. Will call family to discuss goals of care and if they would like to persue further cardiac workup (4) Sepsis Current Visit: No Status: Acute Comment: - Secondary to UTI. UA with nitrates, WBC, leuk esterase. Urine cultures pending. - Blood cultures pendng. Initially was concerned for cholecystitis due to hx of recurrent cholecystitis and U/S findings, however pt's presentation for previous episodes were with N/V and abd pain, which are not currently present, and we have an identified source. Surg consult was initially placed, but Dr Gan feels surgery is not indicated. Of note, pt's family has not been interested in surgical management during previous hospitalizations. - Abx were switched to zosyn for concern for cholecystitis, but will switch back to ceftriaxone - Leukocytosis to 15.9 with Lactic acid 3.3, tachycardic to 111. Improving. Lactic acid trending down, leukocytosis has resolved, HR 80s-90s. Recieved sepsis fluid bolus in ED (5) Hypertension Current Visit: No Status: Chronic Code(s): I10 - ESSENTIAL (PRIMARY) HYPERTENSION SNOMED Code(s): 29672243 Comment: - Continue norvasc (6) Hypomagnesemia Current Visit: Yes Status: Acute Code(s): E83.42 - HYPOMAGNESEMIA SNOMED Code(s): 674473361 Comment: - Repleted for Mg 1.7 today (7) DVT prophylaxis Current Visit: No Status: Acute Code(s): NKC3718 - SNOMED Code(s): 452493875 Comment: - Continue heparin SQ (8) DNR (do not resuscitate) Current Visit: No Status: Acute
[2018-09-08] MEDS ORDERED: cefTRIAXone(*) 1 GM in NS 0.9% 50 ML* 50 ML IVPB SCH (17:30)
[2018-09-08] MEDS: cefTRIAXone(*) 1 GM in NS 0.9% 50 ML* 50 ML IVPB SCH (17:51)
[2018-09-09 05:23] LABS: ABS Basophils 0 10^3/ul (0-0.2); ABS Eosinophils 0.1 10^3/ul (0-0.6); ABS Lymphocytes 2.9 10^3/ul (1.0-4.8); ABS Monocytes 0.8 10^3/ul (0-0.8); ABS Nucleated RBC 0 10^3/ul; Eosinophil % 1.8 %; Hematocrit 29 % (42-52); Hemoglobin 9.6 g/dl (14.0-18.0); Lymphocyte % 36.5 %; Mean Corpuscular HGB Conc 33 g/dl (31-36); Mean Corpuscular Hemoglobin 27 pg (27-31); Mean Corpuscular Volume 83 fL (80-94); Mean Platelet Volume 7.5 fL (7.4-10.4); Nucleated Red Blood Cells % 0.1; Platelet Count 260 10^3/ul (150-450); Red Blood Count 3.54 10^6/ul (4.00-5.40); Red Cell Distribution Width 15 % (10.5-15); White Blood Count 7.8 10^3/ul (3.5-10.8)
[2018-09-09] MEDS: Heparin VIAL(*) 5000 UNITS/ML VIAL (FIVE THOUSAND) SUBCUT SCH ×2 (05:35→14:32)
[2018-09-09 05:44] LABS: EGFR Non-African American 85.1 (>60)
[2018-09-09] MEDS: Insulin LISPRO* 1 UNITS UNIT SUBCUT SCH ×3 (08:36→16:57)
[2018-09-09] MEDS: Omeprazole CAP* 20 MG PO SCH (08:45)
[2018-09-09] MEDS: amLODIPine TAB* 5 MG PO SCH (08:45)
[2018-09-09] MEDS: Docusate CAP* 100 MG PO SCH (08:46)
[2018-09-09] MEDS ORDERED: cefTRIAXone(*) 1 GM in NS 0.9% 50 ML* 50 ML IVPB SCH (09:00)
--- NOTE | 2018-09-09 12:49 | ECHO ---
Patient: SAIMA MARTINEZ [facility] Rec#: [id number] : 1930 Date: 09/09/2018 Age: 88y Height: 168 cm / 66.1 in Weight: 79 kg / 174.1 lbs Sex: M BSA: 1.89 Room#: 434 Admit Date#: 09/08/2018 Type: Inpatient Referring: Luis Felipe Lo NP Reading: Aime Lamb MD Joint Setter: Nesha Giang,NIKKICS,RDMS CC: Mohinder Ordaz MD Transthoracic Echocardiogram Indication: Syncope BP: 121/65 HR: 76 Rhythm: NSR Findings History: AOV stenosis, HTN, HLD, DM, TIA Technical Comments: The study quality is fair. The study is technically limited due to poor acoustic windows. Left Ventricle: The left ventricular chamber size is normal. Mild concentric left ventricular hypertrophy is observed. Basal interventricular septum shows moderate thickening. The estimated ejection fraction is 55-60%. There is an E to A reversal in the mitral valve flow pattern suggestive of diastolic dysfunction. Left Atrium: The left atrium is mildly dilated. Right Ventricle: The right ventricular chamber size and systolic function are within normal limits. The right ventricle wall thickness is mildly increased. Right Atrium: The right atrial cavity size is normal. Aortic Valve: The aortic valve leaflets are moderately thickened. Systolic excursion of the aortic valve cusps is reduced. There is aortic annular calcification. There is a trace of aortic regurgitation. There is mild to moderate aortic stenosis. The mean gradient of the aortic valve is 11 mmHg. The aortic valve area, by peak velocities, is calculated at 1.1 cm2. Mitral Valve: Moderate mitral annular calcification present. The mitral valve leaflets are moderately thickened. There is a trace of mitral regurgitation. There is mild mitral stenosis. Tricuspid Valve: The tricuspid valve leaflets are mildly thickened. There is trace tricuspid regurgitation. Unable to estimate the right ventricular systolic pressure. Pulmonic Valve: The pulmonic valve structure is not well visualized. There is no evidence of pulmonic regurgitation. Pericardium: There is no significant pericardial effusion. Aorta: There is no dilatation of the ascending aorta. The aortic arch is not well visualized. There is mild dilatation of the aortic root. Pulmonary Artery: The main pulmonary artery is not well visualized. Venous: The inferior vena cava appears normal in size. There is an approximate 50% respiratory change in the inferior vena cava dimension. Summary: There are no significant changes when compared to the previous study done on 03/06/2017. Conclusions The left ventricular chamber size is normal. Mild concentric left ventricular hypertrophy is observed. The estimated ejection fraction is 55-60%. There is an E to A reversal in the mitral valve flow pattern suggestive of diastolic dysfunction. The left atrium is mildly dilated. There is a trace of aortic regurgitation. There is mild to moderate aortic stenosis. The mean gradient of the aortic valve is 11 mmHg. There is mild mitral stenosis. There is trace tricuspid regurgitation. Unable to estimate the right ventricular systolic pressure. The pulmonic valve structure is not well visualized. There is mild dilatation of the aortic root. Measurements Name Value Normal Range RVDdMajor (2D) 2.3 cm (2.2 - 4.4) RAd ISD 4CH 4.8 cm (3.4 - 4.9) RA (A4C)W 3.1 cm (2.9 - 4.6) IVSd (2D) 1.8 cm (0.6 - 1) LVPWd (2D) 1.2 cm (0.6 - 1) LVIDd (2D) 3.3 cm (3.6 - 5.4) LVIDs (2D) 2.8 cm - LV FS (2D) 17 % (25 - 45) Aortic Annulus 2 cm (1.4 - 2.6) Ao root diameter (2D) 3.6 cm (2.1 - 3.5) Ascending Ao 3.3 cm (2.1 - 3.4) LA dimension (AP) 2D 3.9 cm (2.3 - 3.8) LAd ISD 4CH 5.7 cm (2.9 - 5.3) LA ISD 4CH W 4.3 cm (2.5 - 4.5) Name Value Normal Range MV E-wave Vmax 1.1 m/sec - MV deceleration time 182 msec - MV A-wave Vmax 1.7 m/sec - MV E:A ratio 0.7 ratio - LV septal e' Vmax 0.4 m/sec - LV lateral e' Vmax 0.6 m/sec - LV E:e' septal ratio 25 ratio - LV E:e' lateral ratio 20 ratio - Name Value Normal Range AV Vmax 2.3 m/sec - AV VTI 48 cm - AV peak gradient 21 mmHg - AV mean gradient 11 mmHg - LVOT diameter 2 cm - LVOT Vmax 0.8 m/sec - LVOT VTI 16 cm - LVOT peak gradient 3 mmHg - LVOT mean gradient 1 mmHg - ALMA (continuity Vmax) 1.1 cm2 - ALMA (continuity VTI) 1 cm2 - RACHAEL Vmax 0.4 m/sec - Name Value Normal Range MV Vmax 1.8 m/sec - MV VTI 42 cm - MV peak gradient 13 mmHg - MV mean gradient 5 mmHg - MV PHT 74 msec - MVA (PHT) 3 cm2 - MVA (continuity VTI) 1.2 cm2 - Name Value Normal Range RAP 8 mmHg - IVC diameter 1.6 cm - Name Value Normal Range PV Vmax 0.6 m/sec - PV peak gradient 1 mmHg -
--- NOTE | 2018-09-09 14:25 | PN ---
Subjective Date of Service: 09/09/18 Interval History: Patient is alert and awake on exam - he is noted to have severe confusion - he has good eye contact but isnt able to answer questions Long conversation with daughter who wishes for comfort care measures. She would like Hospice consult. Does not want him to return to the hospital unless in severe uncontrolled pain. She states she wants any invasive measures such as blood pressure, heparin injections, blood draws ect. Transitioning pt to comfort care. If he has an infection she would consider abx if he is uncomfortable. She said if he refuses his medications that is also ok. Objective Active Medications: Acetaminophen (Tylenol Tab*) 650 mg PO Q4H PRN PRN Reason: FEVER/PAIN Amlodipine Besylate (Norvasc Tab*) 5 mg PO DAILY [facility] Last Admin: 09/09/18 08:45 Dose: 5 mg Dextrose (D50w Syringe 50 Ml*) 12.5 gm IV PUSH .FOR FS < 60 - SS PRN PRN Reason: FS < 60 Docusate Sodium (Colace Cap*) 100 mg PO DAILY [facility] Last Admin: 09/09/18 08:46 Dose: 100 mg Heparin Sodium (Porcine) (Heparin Vial(*)) 5,000 units SUBCUT Q8HR [facility] Last Admin: 09/09/18 05:35 Dose: 5,000 units Ceftriaxone Sodium 1 gm/ (Sodium Chloride) 50 mls @ 200 mls/hr IVPB Q24H [facility] Last Admin: 09/08/18 17:51 Dose: 200 mls/hr Insulin Human Lispro (Humalog*) 0 units SUBCUT AC [facility]; Protocol Last Admin: 09/09/18 11:59 Dose: Not Given Lorazepam (Ativan Tab(*)) 0.5 mg PO BID PRN PRN Reason: ANXIETY Omeprazole (Prilosec Cap*) 20 mg PO DAILY@0730 [facility] Last Admin: 09/09/18 08:45 Dose: 20 mg Ondansetron HCl (Zofran Inj*) 4 mg IV Q6H PRN PRN Reason: NAUSEA Vital Signs - 8 hr 09/09/18 09/09/18 09/09/18 07:31 08:00 12:05 Temperature 98.9 F 98.6 F Pulse Rate 81 73 Respiratory 20 20 20 Rate Blood Pressure 132/76 136/74 (mmHg) O2 Sat by Pulse 97 98 Oximetry Oxygen Devices in Use Now: None Appearance: 88 yo eldelry male laying in bed alert, appears comfortable, confused Eyes: No Scleral Icterus, PERRLA Ears/Nose/Mouth/Throat: NL Teeth, Lips, Gums, Mucous Membranes Moist Respiratory: Symmetrical Chest Expansion and Respiratory Effort, Clear to Auscultation Cardiovascular: NL Sounds; No Murmurs; No JVD, RRR, No Edema Abdominal: NL Sounds; No Tenderness; No Distention Extremities: No Edema, No Clubbing, Cyanosis Skin: No Nodules or Sclerosis Neurological: - - alert, confused Lines/Tubes/Other Access: Clean, Dry and Intact Peripheral IV Nutrition: Taking PO's Result Diagrams: 09/09/18 05:11 09/09/18 05:11 Microbiology and Other Data: Microbiology 09/08/18 06:00 Nasal Screen MRSA (PCR) - Final Nasal Mrsa Not Detected Assess/Plan/Problems-Billing Assessment: 88 year old male with PMH of significant dementia presented to [facility] due to concern for syncopal episodes. Pt unable to give history. In ED found to have WBC 15.9 with positive UA. U/S suggestive of cholecystitis. Started on zosyn and surg consult. Surg feels not acute problem. Pt has had these findings chronically and in the past has presented with N/V and abd pain, so this is less likely as pt does not have these symptoms. Also pt's family has refused surgery in the past. New Mobitz II on tele. - Patient Problems (1) Sepsis Comment: Resolved. Secondary to UTI? UA with nitrates, WBC, leuk esterase. Urine culture growing staph epi? possibly a contaminent? - Blood cultures negative. Initially there was concern for cholecystitis due to hx of recurrent cholecystitis and U/S findings. Surg consult was initially placed, but Dr Gan feels surgery is not indicated. Of note, pt's family has not been interested in surgical management during previous hospitalizations. (2) Syncope Comment: - Orthostatic in the setting of dehydration. was given IVF on admission - Also new Mobitz II on tele. Daughter wants no further intervention - DC telemetry (3) Second degree AV block, Mobitz type II Comment: - No further cardiac workup (4) Dementia Comment: - Patient has advanced dementia - continue supportive care. (5) Hypertension Comment: - Continue norvasc (6) Diabetes mellitus Comment: - hold po meds. - continue FSBG with lispro SS (7) DNR (do not resuscitate) (8) DVT prophylaxis Comment: DC heparin SQ d/t comfort care measures Status and Disposition: inpatient. Plan to transfer back to [facility] tomorrow with hospice referral. If Hospice provider is rounding tomorrow will ask for them to see pt prior to leaving. MOLST changes to reflect daughters wishes of comfort care, do not send to the hospital. Long conversation with daughter who wishes for comfort care measures. She would like Hospice consult. Does not want him to return to the hospital unless in severe uncontrolled pain. She states she wants any invasive measures such as blood pressure, heparin injections, blood draws ect. Transitioning pt to comfort care. If he has an infection she would consider abx if he is uncomfortable. She said if he refuses his medications that is also ok.
[2018-09-09] MEDS: cefTRIAXone(*) 1 GM in NS 0.9% 50 ML* 50 ML IVPB SCH (17:10)
[2018-09-09] MEDS ORDERED: traMADol TAB* 50 MG PO PRN (17:27)
--- NOTE | 2018-09-09 19:09 | CONS ---
CC: [facility]; Primary Care Physician, Mohinder Ordaz MD * SURGICAL CONSULTATION REPORT: DATE OF CONSULT: 09/08/18 HISTORY OF PRESENT ILLNESS: I was contacted by the hospitalists service to evaluate Mr. Snyder an 88-year-old gentleman, who presented to the emergency room on 09/07/18 with a witnessed syncopal episode. The patient is a [facility] patient with severe dementia. He was evaluated in the emergency room, and was noted to have mildly elevated LFTs along with an elevated white blood cell count. Upon review of the patient's history, acute cholecystis in the past, treated with antibiotics. The patient underwent an ultrasound of the gallbladder, which the report was reviewed and showed gallstones along with gallbladder wall thickening. The patient was started on antibiotics for urinary tract infection, admitted to the floor where he was seen. When I saw the patient, he had no complaints. He does answer questions inappropriately and does not understand questions. He seems comfortable in the bed. PAST MEDICAL HISTORY: Reviewed. PHYSICAL EXAM: He is afebrile. Vital signs are stable. He is awake, comfortable. Abdomen is soft, nondistended, nontender. DIAGNOSTIC STUDIES/LAB DATA: Labs reviewed, white count normalized, mildly elevated LFTs. IMPRESSION: No evidence of acute cholecystitis based on physical exam and current labs. PLAN: The patient may eat; this was discussed with the nursing staff as well as with the hospitalists service. No surgical intervention required. [id number]/CPS #: [id number] MTDD
[2018-09-10] MEDS: amLODIPine TAB* 5 MG PO SCH ×2 (07:49→10:15)
[2018-09-10] MEDS: Omeprazole CAP* 20 MG PO SCH (07:49)
[2018-09-10] MEDS: Docusate CAP* 100 MG PO SCH (07:50)
--- NOTE | 2018-09-10 08:49 | PN ---
Subjective Date of Service: 09/10/18 Interval History: No c/o, seems content. Objective Active Medications: Acetaminophen (Tylenol Tab*) 650 mg PO Q4H PRN PRN Reason: FEVER/PAIN Amlodipine Besylate (Norvasc Tab*) 5 mg PO DAILY [facility] [place] Last Admin: 09/10/18 07:49 Dose: 5 mg Docusate Sodium (Colace Cap*) 100 mg PO DAILY [facility] Last Admin: 09/10/18 07:50 Dose: 100 mg Lorazepam (Ativan Tab(*)) 0.5 mg PO BID PRN PRN Reason: ANXIETY Omeprazole (Prilosec Cap*) 20 mg PO DAILY@0730 [facility] Last Admin: 09/10/18 07:49 Dose: 20 mg Ondansetron HCl (Zofran Inj*) 4 mg IV Q6H PRN PRN Reason: NAUSEA Tramadol HCl (Ultram*) 50 mg PO Q8H PRN PRN Reason: PAIN Vital Signs - 8 hr 09/10/18 09/10/18 09/10/18 03:03 07:42 08:00 Temperature 98.0 F Pulse Rate 72 79 Respiratory 18 18 18 Rate Blood Pressure 150/69 109/89 (mmHg) O2 Sat by Pulse 97 96 Oximetry Oxygen Devices in Use Now: None Appearance: Alert, partly up in bed. In good spirits, looks comfortable. Eyes: No Scleral Icterus Neck: NL Appearance and Movements; NL JVP, No Thyroid Enlargement, Masses Respiratory: Symmetrical Chest Expansion and Respiratory Effort, Clear to Auscultation, Clear to Percussion Cardiovascular: RRR, No Edema, - - 3-4/6 systolic murmur RSB Extremities: No Edema, No Clubbing, Cyanosis, - Skin: No Rash or Ulcers, No Nodules or Sclerosis, - Neurological: NL Sensation - Gave his age at "about 30", could not state his occupation. Could not state present month or that he was in a hospital. Gave season as Spring. No tremor. Pleasant and cooperative. Result Diagrams: 09/09/18 05:11 09/09/18 05:11 Microbiology and Other Data: Microbiology 09/08/18 06:00 Nasal Screen MRSA (PCR) - Final Nasal Mrsa Not Detected Assess/Plan/Problems-Billing Assessment: 88 year old male with PMH of significant dementia presented to [facility] due to concern for syncopal episodes. Pt unable to give history. In ED found to have WBC 15.9 with positive UA. U/S suggestive of cholecystitis. Started on zosyn and surg consult. Surg feels not acute problem. Pt has had these findings chronically and in the past has presented with N/V and abd pain, so this is less likely as pt does not have these symptoms. Also pt's family has refused surgery in the past. [place] on tele. - Patient Problems (1) Dementia Current Visit: Yes Status: Acute Code(s): F03.90 - UNSPECIFIED DEMENTIA WITHOUT BEHAVIORAL DISTURBANCE SNOMED Code(s): 71052479 Comment: - Patient has advanced dementia - continue supportive care. (2) Diabetes mellitus Current Visit: Yes Status: Chronic Code(s): E11.9 - TYPE 2 DIABETES MELLITUS WITHOUT COMPLICATIONS SNOMED Code(s): 73762678 Comment: Stop glipizide. Daily FS while in hospital. (3) Hypothyroid Current Visit: Yes Status: Acute Code(s): E03.9 - HYPOTHYROIDISM, UNSPECIFIED SNOMED Code(s): 96578220 Comment: Start levothyroxine 09/10. (4) Aortic stenosis Current Visit: Yes Status: Acute Code(s): I35.0 - NONRHEUMATIC AORTIC (VALVE ) STENOSIS SNOMED Code(s): 66876683 Comment: Mild to mod by echo 09/07/18. (5) Hypertension Current Visit: Yes Status: Chronic Code(s): I10 - ESSENTIAL (PRIMARY) HYPERTENSION SNOMED Code(s): 77765431 Comment: Reduce amlodipine to 2.5 mg daily 09/10. Status and Disposition: inpatient. Plan to transfer back to [facility] tomorrow with hospice referral. If Hospice provider is rounding tomorrow will ask for them to see pt prior to leaving. MOLST changes to reflect daughters wishes of comfort care, do not send to the hospital. Long conversation with daughter who wishes for comfort care measures. She would like Hospice consult. Does not want him to return to the hospital unless in severe uncontrolled pain. She states she wants any invasive measures such as blood pressure, heparin injections, blood draws ect. Transitioning pt to comfort care. If he has an infection she would consider abx if he is uncomfortable. She said if he refuses his medications that is also ok.
[2018-09-10] MEDS ORDERED: glipiZIDE TAB.XL* 2.5 MG PO SCH (09:00)
[2018-09-10] MEDS: Levothyroxine TAB* 25 MCG TAB PO SCH (10:15)
--- NOTE | 2018-09-10 16:05 | CONSULT ---
Palliative / Hospice Consult Ordering Provider: Kay Gray - PCP-Dr Ordaz Referal Reason: Asked to evaluate patient for hospice care - Subjective Code Status: DNR Advance Directives Location: [facility] [place] EMR MOLST Part A Completed: Yes - verbal consent from daughter Ann Date: 09/09/18 MOLST Part E Completed:: Yes - verbal consent from joseph Juarez Date: 09/09/18 HCP Completed: Yes - History or Present Illness History or Present Illness: 88 yo male with dementia, aortic stenosis, HTN, elevated lipids, TIA, DM, gallstones who had a syncopal episode at [facility] and was brought to the ER. Nonverbal was not able to contribute to history. He is incontinent of bladder & bowel. According to [facility] staff he is total care. He was admitted due to elevated WBC and started on antibiotics. He has a history of cholecystitis and surgery was asked to see him but the family doesn't want him to have surgery and Dr. Lam didn't feel he had cholecystitis currently. There is an issue of weight loss as per the chart. He also has new onset L anterior fascicular block. Lab Values: Abnormal Lab Results 09/09/18 09/10/18 16:27 12:59 POC Glucose (mg/dL) 122 H 118 H Laboratory Last Values WBC 7.8 10^3/ul (3.5-10.8) 09/09/18 05:11 RBC 3.54 10^6/ul (4.00-5.40) L 09/09/18 05:11 Hgb 9.6 g/dl (14.0-18.0) L 09/09/18 05:11 Hct 29 % (42-52) L 09/09/18 05:11 MCV 83 fL (80-94) 09/09/18 05:11 MCH 27 pg (27-31) 09/09/18 05:11 MCHC 33 g/dl (31-36) 09/09/18 05:11 RDW 15 % (10.5-15) 09/09/18 05:11 Plt Count 260 10^3/ul (150-450) 09/09/18 05:11 MPV 7.5 fL (7.4-10.4) 09/09/18 05:11 Neut % (Auto) 51.3 % 09/09/18 05:11 Lymph % (Auto) 36.5 % 09/09/18 05:11 S[place] % (Auto) 9.8 % 09/09/18 05:11 Eos % (Auto) 1.8 % 09/09/18 05:11 Baso % (Auto) 0.6 % 09/09/18 05:11 Absolute Neuts (auto) 4.0 10^3/ul (1.5-7.7) 09/09/18 05:11 Absolute Lymphs (auto) 2.9 10^3/ul (1.0-4.8) 09/09/18 05:11 Absolute Monos (auto) 0.8 10^3/ul (0-0.8) 09/09/18 05:11 Absolute Eos (auto) 0.1 10^3/ul (0-0.6) 09/09/18 05:11 Absolute Basos (auto) 0 10^3/ul (0-0.2) 09/09/18 05:11 Absolute Nucleated RBC 0 10^3/ul 09/09/18 05:11 Nucleated RBC % 0.1 09/09/18 05:11 INR (Anticoag Therapy) 0.93 (0.77-1.02) 09/08/18 04:58 Sodium 139 mmol/L (135-145) 09/09/18 05:11 Potassium 3.8 mmol/L (3.5-5.0) 09/09/18 05:11 Chloride 108 mmol/L (101-111) 09/09/18 05:11 Carbon Dioxide 26 mmol/L (22-32) 09/09/18 05:11 Anion Gap 5 mmol/L (2-11) 09/09/18 05:11 BUN 11 mg/dL (6-24) 09/09/18 05:11 Creatinine 0.85 mg/dL (0.67-1.17) 09/09/18 05:11 Est GFR ( Amer) 102.9 (>60) 09/09/18 05:11 Est GFR (Non-Af Amer) 85.1 (>60) 09/09/18 05:11 BUN/Creatinine Ratio 12.9 (8-20) 09/09/18 05:11 Glucose 112 mg/dL (70-100) H 09/09/18 05:11 POC Glucose (mg/dL) 118 mg/dL (70-100) H 09/10/18 12:59 Lactic Acid 0.6 mmol/L (0.5-2.0) 09/09/18 05:11 Calcium 8.8 mg/dL (8.6-10.3) 09/09/18 05:11 Magnesium 2.1 mg/dL (1.9-2.7) 09/09/18 05:11 Total Bilirubin 0.40 mg/dL (0.2-1.0) 09/08/18 04:58 Direct Bilirubin 0.10 mg/dL (0.03-0.18) 09/08/18 04:58 Indirect Bilirubin 0.3 mg/dL (0.3-1.0) 09/08/18 04:58 AST 46 U/L (13-39) H 09/08/18 04:58 ALT 48 U/L (7-52) 09/08/18 04:58 Alkaline Phosphatase 128 U/L (34-104) H 09/08/18 04:58 Troponin I 0.01 ng/mL (<0.04) 09/07/18 21:00 C-Reactive Protein 2.28 mg/L (<8.01) 09/07/18 14:41 Total Protein 6.3 g/dL (6.4-8.9) L 09/08/18 04:58 Albumin 3.6 g/dL (3.2-5.2) 09/08/18 04:58 Globulin 2.7 g/dL (2-4) 09/08/18 04:58 Albumin/Globulin Ratio 1.3 (1-3) 09/08/18 04:58 Amylase 67 U/L (29-103) 09/07/18 14:41 Lipase 15 U/L (11.0-82.0) 09/07/18 14:41 TSH 9.73 mcIU/mL (0.34-5.60) H 09/07/18 14:41 Urine Color Yellow 09/07/18 16:53 Urine Appearance Cloudy 09/07/18 16:53 Urine pH 5.0 (5-9) 09/07/18 16:53 Ur Specific [place] 1.017 (1.010-1.030) 09/07/18 16:53 Urine Protein Negative (Negative) 09/07/18 16:53 Urine Ketones Negative (Negative) 09/07/18 16:53 Urine Blood Negative (Negative) 09/07/18 16:53 Urine Nitrate Positive (Negative) A 09/07/18 16:53 Urine Bilirubin Negative (Negative) 09/07/18 16:53 Urine Urobilinogen Negative (Negative) 09/07/18 16:53 Ur Leukocyte Esterase 3+ (Negative) A 09/07/18 16:53 Urine WBC (Auto) 3+(>20/hpf) (Absent) A 09/07/18 16:53 Urine RBC (Auto) Absent (Absent) 09/07/18 16:53 Urine Bacteria Absent (Absent) 09/07/18 16:53 Urine Glucose Negative (Negative) 09/07/18 16:53 - Objective Active Medications: Acetaminophen (Tylenol Tab*) 650 mg PO Q4H PRN PRN Reason: FEVER/PAIN Amlodipine Besylate (Norvasc Tab*) 2.5 mg PO DAILY [facility] Last Admin: 09/10/18 10:15 Dose: 2.5 mg Docusate Sodium (Colace Cap*) 100 mg PO DAILY [facility] Last Admin: 09/10/18 07:50 Dose: 100 mg Levothyroxine Sodium (Synthroid Tab*) 25 mcg PO DAILY@0600 [facility] Last Admin: 09/10/18 10:15 Dose: 25 mcg Lorazepam (Ativan Tab(*)) 0.5 mg PO BID PRN PRN Reason: ANXIETY Omeprazole (Prilosec Cap*) 20 mg PO DAILY@0730 [facility] Last Admin: 09/10/18 07:49 Dose: 20 mg Tramadol HCl (Ultram*) 50 mg PO Q8H PRN PRN Reason: PAIN Vital Signs: Vital Signs: Temp Pulse Resp BP Pulse Ox 98.4 F 83 18 130/56 97 09/10/18 10:56 09/10/18 10:56 09/10/18 10:56 09/10/18 10:56 09/10/18 10:56 Patient Weight: Weight 78.698 kg Intake and Output: Intake & Output 09/08/18 09/09/18 09/10/18 09/11/18 06:59 06:59 06:59 06:59 Intake Total 500 1780 1495 900 Output Total 0 Balance 500 1780 1495 900 Weight 78.698 kg Intake: IV Fluids 210 1060 55 ceftriaxone 55 IVPB 200 Oral 90 720 1440 900 Output: Urine 0 Other: Estimated Void Large Large Medium Large Date of Last Bowel t Movement # Bowel Movements 0 0 0 Estimated Stool Amount Small Medium Medium # Voids 2 4 1 2 ADLs: Meal Record Start: 09/07/18 19: 58 Freq: DAILY@0900,1400,1800 Status: Active Protocol: Created 09/07/18 19:58 System (Rec: 09/07/18 19:58 System TELE-M02) Document 09/08/18 09:00 [id number] (Rec: 09/08/18 09:45 [id number] TELE-C01) Document 09/08/18 14:00 [id number] (Rec: 09/08/18 14:31 [id number] TELE-C01) Document 09/09/18 09:00 [id number] (Rec: 09/09/18 14:28 [id number] TELE-C01) Document 09/09/18 14:00 [id number] (Rec: 09/09/18 14:29 [id number] TELE-C01) Document 09/09/18 18:00 [id number] (Rec: 09/09/18 21:52 [id number] TELE-C13) Document 09/10/18 09:00 [id number] (Rec: 09/10/18 10:42 [id number] MED-C11) Document 09/10/18 14:00 [id number] (Rec: 09/10/18 15:14 [id number] MED-C11) Intake and Output Start: 09/07/18 14: 33 Freq: Status: Active Protocol: Created 09/07/18 14:33 System (Rec: 09/07/18 14:33 System ED-M01) Intake and Output Start: 09/07/18 19: 58 Freq: DAILY@0600,1400,2200 Status: Active Protocol: Created 09/07/18 19:58 System (Rec: 09/07/18 19:58 System TELE-M02) Document 09/07/18 22:00 [id number] (Rec: 09/07/18 22:17 [id number] TELE-C11) Document 09/07/18 22:50 [id number] (Rec: 09/08/18 05:37 [id number] TELE-C03) Document 09/08/18 05:35 [id number] (Rec: 09/08/18 05:36 [id number] TELE-C03) Document 09/08/18 05:36 [id number] (Rec: 09/08/18 05:36 [id number] TELE-C03) Document 09/08/18 09:08 [id number] (Rec: 09/08/18 09:09 [id number] TELE-C06) Document 09/08/18 14:00 [id number] (Rec: 09/08/18 14:31 GLU1190 TELE-C01) Document 09/08/18 22:00 [id number] (Rec: 09/08/18 22:23 [id number] TELE-C07) Document 09/09/18 06:00 [id number] (Rec: 09/09/18 06:21 [id number] TELE-C32) Document 09/09/18 14:00 [id number] (Rec: 09/09/18 14:29 [id number] TELE-C01) Document 09/09/18 21:53 [id number] (Rec: 09/09/18 21:55 [id number] TELE-C13) Document 09/10/18 05:58 [id number] (Rec: 09/10/18 05:58 [id number] MED-C04) Document 09/10/18 14:00 [id number] (Rec: 09/10/18 15:14 [id number] MED-C11) Head: Normal Eyes: No Scleral Icterus Ears/Nose/Mouth/Throat: NL Teeth, Lips, Gums, Mucous Membranes Moist Neck: NL Appearance and Movements; NL JVP, No Thyroid Enlargement, Masses Cardiovascular: RRR, No Edema, - - 3/4 systolic murmur Respiratory: Clear to Auscultation, Clear to Percussion, Clear to Palpation Abdominal: NL Sounds; No Tenderness; No Distention - large lipoma above umbilicus Extremities: No Edema, No Clubbing, Cyanosis, - Neurological: NL Sensation - Gave his age at "about 30", could not state his occupation. Could not state present month or that he was in a hospital. Gave season as Spring. No tremor. Pleasant and cooperative. - Assessment Assessment: 88 yo male with history of dementia, , HTN, elevated cholesterol, TIA, DM and cholethiasis with syncopal episode possibly due to infection. - Plan Consult Plan (MU): Hospice Plan: Spoke with patient's daughter and staff at [facility] and based on their information of total care and non communicative dementia, borderline weight loss and periodic episodes of infections I feel he is a candidate for hospice which he will receive while at [facility]. Daughter as sales representative [employer] of patient's family was in agreement and relieved that he won't have to be going back to the hospital in the future. He is not likely to survive 6 months. - Time On Unit Date of Evaluation: 09/10/18 Hospice Consult Time in: 01:00 Hospice Consult Time Out: 02:00 Hospice Consult Time Total: 60 > 50% of Time Spend In Counseling or Coordinating Care: Yes
[2018-09-11] MEDS: Omeprazole CAP* 20 MG PO SCH (05:54)
[2018-09-11] MEDS: Levothyroxine TAB* 25 MCG TAB PO SCH (05:54)
[2018-09-11] MEDS: Docusate CAP* 100 MG PO SCH (09:47)
[2018-09-11] MEDS: amLODIPine TAB* 5 MG PO SCH (09:47)
[2018-09-11 10:18] VITALS: BP 108/67
--- NOTE | 2018-09-11 11:52 | PN ---
Progress Note - Progress Note Date of Service: 09/11/18 Note: Time spent on discharge, including exam of patient, discussion with patient, nurse, CM, review of EMR and preparation of discharge documkejnts 40 minutes.
--- NOTE | 2018-09-11 16:34 | DS ---
CC: Dr. Mohinder Ordaz * DISCHARGE SUMMARY: DATE OF ADMISSION: DATE OF DISCHARGE: 09/11/18 HOSPITAL COURSE: This 88-year-old man came with a history of presyncope. He had significant dementia and I do not think it contributes to his history at all. He has been a resident at [facility]. At the facility, he possibly passed out for a minute on the day of admission. The patient had no complaints and did not recall this event. The nursing staff called 911. He had no other symptoms. His lactic acid was somewhat elevated. He was given ceftriaxone and intravenous fluid. Two sets of blood cultures, both no growth at the time of this dictation. Urine culture grew out Staphylococcus epidermidis very likely simply as contaminants or colonization. He had no fevers throughout his hospital stay. His white blood cell count was 15.9 on admission and 9.3 and 7.8 following admission. Lactic acid level was 3.3, 2.6 a few hours later, and 0.62 days later after admission. The patient is seen very comfortable and had no complaints. Antibiotics were discontinued. I lowered his amlodipine dose. The lactic acid I think probably reflected his metformin use, which has been discontinued. His blood sugars were quite well controlled without metformin, in fact the highest valve was the 122 out of 7 fingersticks done here over the last few days. He was continued on glipizide XL 2.5 mg daily. He was seen in consultation by the hospice physician. He was felt to be a candidate for hospice care at [facility]. The family was advised about this and were part of the discussion. FINAL DIAGNOSES: 1. Presyncope. 2. Hypothyroidism. 3. Diabetes. 4. Dementia. 5. Aortic stenosis. 6. Hypertension. DISCHARGE MEDICATIONS: 1. Amlodipine 2.5 mg daily. 2. Levothyroxine 25 mcg daily. 3. Docusate 100 mg daily. 4. Vitamin B12 of 500 mcg daily. 5. Acetaminophen 650 mg every 6 hours p.r.n. 6. Glipizide ER 2.5 mg daily. 7. Amoxicillin p.r.n. dental work or dental pain. 8. Triamcinolone 0.1% ointment apply topically daily to affected areas. 9. Pantoprazole 40 mg daily. 10. Lorazepam 0.5 mg b.i.d. CONDITION ON DISCHARGE: Stable. DISPOSITION ON DISCHARGE: Discharge to [facility]. [id number]/CPS #: [id number] [place]
== END 2018-09-11 13:02 | DRG 872 ==
LOC: ED 14:23 → MEDTELE 17:52 → OBSVTOIN 09-08 15:09 → MED 09-09 22:00
PROVIDERS: ADMIT Internal Medicine; ATTEND Internal Medicine
DX: A41.9 Sepsis, unspecified organism (principal); F05 Delirium due to known physiological condition; R55 Syncope and collapse; E86.0 Dehydration; E83.42 Hypomagnesemia; I44.1 Atrioventricular block, second degree; E11.9 Type 2 diabetes mellitus without complications; F03.90 Unspecified dementia, unspecified severity, without behavioral disturbance, psychotic disturbance, mood disturbance, and anxiety; I35.0 Nonrheumatic aortic (valve) stenosis; I10 Essential (primary) hypertension; E78.5 Hyperlipidemia, unspecified; E03.9 Hypothyroidism, unspecified; D72.829 Elevated white blood cell count, unspecified; Z66 Do not resuscitate; Z51.5 Encounter for palliative care; Z86.73 Personal history of transient ischemic attack (TIA), and cerebral infarction without residual deficits; Z79.2 Long term (current) use of antibiotics; Z79.84 Long term (current) use of oral hypoglycemic drugs; Z79.1 Long term (current) use of non-steroidal anti-inflammatories (NSAID); Z79.899 Other long term (current) drug therapy; Z88.8 Allergy status to other drugs, medicaments and biological substances
CPT/HCPCS: 36415; 70450; 71046; 76705; 80048; 80053; 80076; 81003; 81015; 82150; 83605; 83690; 83735; 84443; 84484; 85025; 85610; 86140; 87040; 87077; 87086; 87186; 87641; 93005; 93306; 99285; A9270-GY; G0378; J0696; J1644; J2543; J3475

== ENCOUNTER 2019-04-04 17:16 | Emergency (ER) | payer MEDICARE, OTHER ==
[2019-04-04] MEDS ORDERED: NS 0.9% 1000 ML** 1,000 ML IV.FLUID IV ONE (17:31)
[2019-04-04] MEDS ORDERED: Piperacillin/Tazobac ADVAN(*) 3.375 GM in NS 0.9% 100 ML* 100 ML IVPB ONE (17:31)
[2019-04-04 17:55] LABS: ABS Basophils 0.1 10^3/ul (0-0.2); ABS Lymphocytes 1.6 10^3/ul (1.0-4.8); ABS Monocytes 0.8 10^3/ul (0-0.8); ABS Neutrophils 10.5 10^3/ul (1.5-7.7); Eosinophil % 0.1 %; Hematocrit 34 % (42-52); Hemoglobin 11.2 g/dL (14.0-18.0); Lymphocyte % 12.2 %; Mean Corpuscular HGB Conc 33 g/dL (31-36); Mean Corpuscular Hemoglobin 27 pg (27-31); Mean Corpuscular Volume 83 fL (80-94); Mean Platelet Volume 7.5 fL (7.4-10.4); Platelet Count 273 10^3/uL (150-450); Red Blood Count 4.12 10^6 /uL (4.18-5.48); Red Cell Distribution Width 17 % (10-15); White Blood Count 12.9 10^3/uL (3.5-10.8)
[2019-04-04 18:04] LABS: Activated Partial Thrombo Time 30.6 seconds (26.0-38.0); Fibrinogen 440.1 mg/dL (110.8-404.3); INR 1.08 (0.82-1.09)
[2019-04-04 18:14] LABS: Albumin 3.6 g/dL (3.2-5.2); Albumin/Globulin Ratio 1.1 (1-3); BUN/Creatinine Ratio 12.5 (8-20); C Reactive Protein 25.47 mg/L (<8.01); Calcium 8.9 mg/dL (8.6-10.3); EGFR African American 89.2 (>60); EGFR Non-African American 73.8 (>60); Globulin 3.4 g/dL (2-4); Potassium 4.2 mmol/L (3.5-5.0); Total Bilirubin 0.6 mg/dL (0.2-1.0)
--- NOTE | 2019-04-04 18:16 | ED ---
HPI Febrile Illness - HPI Summary HPI Summary: LEVEL 5 CAVEAT due to hx of Parkinson's disease and Alzheimer's. The patient is an 89 y/o M presenting to [facility] from the alf accompanied by daughter with a chief complaint of fevers and productive cough with gradual onset. Per daughter, who is the patient's health proxy, requested that the patient be sent to the ED because he has become septic in the past with his current symptoms. He is in comfort care in the alf. HPI is limited to daughter and medical records because patient has hx of Parkinson's and Alzheimer's. Hx of DM, DVT, HTN, prostate cancer. Former smoker, no EtOH, no substance use. - History of Current Complaint Chief Complaint: EDFever Time Seen by Provider: 04/04/19 17:31 Hx Obtained From: Family/Mathematics Academic Chair - daughter, Medical Records Hx From Patient Unobtainable Due To: Other - patient has hx of Alzheimer's and Parkinson's Onset/Duration: Still Present Timing: Lasting Hours Pain Intensity: 0 Pain Scale Used: 0-10 Numeric Aggravating Factors: Nothing Alleviating Factors: Nothing Associated Signs and Symptoms: Cough - productive - Additional Pertinent History Primary Care Physician: [id number] - Allergy/Home Medications Allergies/Adverse Reactions: Allergies Allergy/AdvReac Type Severity Reaction Status Date / Time lisinopril Allergy Coughing Verified 06/23/18 16:08 PMH/Surg Hx/FS Hx/Imm Hx Endocrine/Hematology History: Reports: Hx Diabetes Cardiovascular History: Reports: Hx Deep Vein Thrombosis, Hx Hypertension Denies: Hx Hypercholesterolemia, Hx Pacemaker/ICD History: Reports: Other Problems/Disorders - prostate ca, radiation Musculoskeletal History: Reports: Hx Back Problems - Fusion L4-S1, Other Musculoskeletal History - L total knee replacemtn, fusion S1, L4, L5 Denies: Hx Scoliosis Sensory History: Denies: Hx Contacts or Glasses, Hx Hearing Aid Opthamlomology History: Denies: Hx Contacts or Glasses Neurological History: Reports: Hx Dementia, Other Neuro Impairments/Disorders - alzheimers, Parkinson's Psychiatric History: Reports: Other Psychiatric Issues/Disorders - alzheimers Denies: Hx Panic Disorder - Cancer History Cancer Type, 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, CATARACT Infectious Disease History: No Infectious Disease History: Denies: Traveled Outside the [place] in Last 30 Days - Family History Known Family History: Positive: Cardiac Disease, Diabetes - Social History Alcohol Use: None Hx Substance Use: No Substance Use Type: Reports: None Hx Tobacco Use: Yes Smoking Status (MU): Former Smoker Have You Smoked in the Last Year: No Review of Systems Positive: Fever Positive: Cough - productive All Other Systems Reviewed And Are Negative: No - Comments Additional Review of Systems Comments: LEVEL 5 CAVEAT Physical Exam - Summary Physical Exam Summary: VITAL SIGNS: Reviewed. GENERAL: Patient is a well-developed and nourished male who is lying comfortable in the stretcher. Patient is not in any acute respiratory distress. HEAD AND FACE: No signs of trauma. No ecchymosis, hematomas or skull depressions. No sinus tenderness. EYES: PERRLA, EOMI x 2, No injected conjunctiva, no nystagmus. EARS: Hearing grossly intact. Ear canals and tympanic membranes are within normal limits. MOUTH: Oropharynx within normal limits. NECK: Supple, trachea is midline, no adenopathy, no JVD, no carotid bruit, no c- spine tenderness, neck with full ROM. CHEST: Symmetric, no tenderness at palpation. LUNGS: Decreased breath sounds. Bilateral crackles. No wheezing. CVS: Regular rate and rhythm, S1 and S2 present, no murmurs or gallops appreciated. ABDOMEN: Soft, non-tender. No signs of distention. No rebound, no guarding, and no masses palpated. Bowel sounds are normal. EXTREMITIES: FROM in all major joints, no edema, no cyanosis or clubbing. NEURO: Alert but not oriented. Neurological deficits consistent with Parkinson' s disease. Follows commands. SKIN: Dry and warm. Triage Information Reviewed: Yes Vital Signs On Initial Exam: Initial Vitals Temp Pulse Resp BP Pulse Ox 100.2 F 104 20 131/70 94 04/04/19 17:19 04/04/19 17:19 04/04/19 17:19 04/04/19 17:19 04/04/19 17:19 Vital Signs Reviewed: Yes Completion Of Physical Exam Limited Due To: Level 5 Diagnostics - Vital Signs Vital Signs Temp Pulse Resp BP Pulse Ox 04/04/19 17: 100.2 F 104 20 131/70 94 - Laboratory Lab Results: Lab Results 04/04/19 04/04/19 Range/Units 17:44 17:44 WBC 12.9 H (3.5-10.8) 10^3/uL RBC 4.12 L (4.18-5.48) 10^6 /uL Hgb 11.2 L (14.0-18.0) g/dL Hct 34 L (42-52) % MCV 83 (80-94) fL MCH 27 (27-31) pg MCHC 33 (31-36) g/dL RDW 17 H (10-15) % Plt Count 273 (150-450) 10^3/uL MPV 7.5 (7.4-10.4) fL Neut % (Auto) 80.9 % Lymph % (Auto) 12.2 % [place] % (Auto) 6.3 % Eos % (Auto) 0.1 % Baso % (Auto) 0.5 % Absolute Neuts (auto) 10.5 H (1.5-7.7) 10^3/ul Absolute Lymphs (auto) 1.6 (1.0-4.8) 10^3/ul Absolute Monos (auto) 0.8 (0-0.8) 10^3/ul Absolute Eos (auto) 0.0 (0-0.6) 10^3/ul Absolute Basos (auto) 0.1 (0-0.2) 10^3/ul Absolute Nucleated RBC 0.0 10^3/ul Nucleated RBC % 0.0 ESR Pending INR (Anticoag Therapy) 1.08 (0.82-1.09) APTT 30.6 (26.0-38.0) seconds Fibrinogen 440.1 H (110.8-404.3) mg/dL Result Diagrams: 04/04/19 17:44 04/04/19 17:44 Lab Statement: Any lab studies that have been ordered have been reviewed, and results considered in the medical decision making process. - Radiology CXR Radiology Interpretation Completed By: Radiologist Summary of Radiographic Findings: Low lung volumes. No active cardiopulmonary disease. ED physician has reviewed this report. Re-Evaluation - Re-Evaluation First Eval Re-Evaluation Time: 20:00 Comment: I discussed the results with the patient's daughter. She declines admission for the patient, but she would like for the patient to have antibiotics and discharge back to his alf. Course/Dx - Course Assessment/Plan: LEVEL 5 CAVEAT due to hx of Parkinson's disease and Alzheimer' s. The patient is an 89 y/o M presenting to [facility] from the alf accompanied by daughter with a chief complaint of fevers and productive cough with gradual onset. Per daughter, who is the patient's health proxy, requested that the patient be sent to the ED because he has become septic in the past with his current symptoms. He is in comfort care in the alf. HPI is limited to daughter and medical records because patient has hx of Parkinson's and Alzheimer's. Hx of DM, DVT, HTN, prostate cancer. Former smoker, no EtOH, no substance use. Blood work without any significant abnormality except for the WBCs of 12.9, hemoglobin of 11.2, hematocrit of 34, fibrinogen of 440, glucose of 256, and CRP of 25.4. Urinalysis is negative for UTI. In the ED course, the patient was placed on a engine monitor, IV access was obtained, and IV fluids were started. Primary nurse reports that the patient is positive for sepsis criteria. Therefore, the patient was given IV fluids 30 ccs per KG, and he was given Zosyn as a broad-spectrum antibiotic. Chest x-ray impression: Low lung volumes. No active cardiopulmonary disease. However, the patient has a productive cough with phlegm; therefore I believe that the patient has bronchitis or an early pneumonia. Therefore, the patient will be discharged home with a prescription for doxycycline. The patients daughter declined for the patient to be admitted to the hospital. She only wants for the patient to be treated with antibiotics and discharged back to the alf. The patient is in comfort care. - Diagnoses Provider Diagnoses: Bronchitis Discharge - Sign-Out/Discharge Documenting (check all that apply): Patient Departure - Patient will be discharged home. Patient Received Moderate/Deep Sedation with Procedure: No - Discharge Plan Condition: Stable Disposition: HOME Prescriptions: DOXYcycline CAP(*) [DOXYcycline 100MG CAP(*)] 100 mg PO BID #20 cap Patient Education Materials: Acute Bronchitis (ED) Referrals: Mohinder Ordaz MD [Primary Care Provider] - 3 Days Additional Instructions: Please take medication as prescribed. Follow up with your primary care provider in 2-3 days. RETURN TO THE EMERGENCY DEPARTMENT FOR ANY NEW OR WORSENING SYMPTOMS. - Billing Disposition and Condition Condition: STABLE Disposition: Home - Attestation Statements Document Initiated by Jamalibe: Yes Documenting Scribe: Linn Henley Provider For Whom Jon is Documenting (Include Credential): Dr. Patrick Frankel MD Scribe Attestation: Linn Hudson, scribed for Dr. Patrick Frankel MD on 04/04/19 at 2017. Scribe Documentation Reviewed: Yes Provider Attestation: The documentation as recorded by the Linn velazquez accurately reflects the service I personally performed and the decisions made by me, Dr. Patrick Frankel MD Status of Scribe Document: Ready
[2019-04-04 19:05] LABS: Erythrocyte Sed Rate 52 mm/Hr (0-19)
[2019-04-04 19:52] LABS: Urine Appearance Clear; Urine Bilirubin Negative (Negative); Urine Blood Negative (Negative); Urine Color Yellow; Urine Glucose 1+(50 mg/dL) (Negative); Urine Ketones Trace (Negative); Urine Nitrite Negative (Negative); Urine Protein Negative (Negative); Urine Specific Gravity 1.023 (1.010-1.030); Urine Urobilinogen Negative (Negative)
[2019-04-04 21:25] VITALS: BP 126/66
== END 2019-04-04 21:25 | disposition home or self-care (01) ==
LOC: ED 17:16
DX: J40 Bronchitis, not specified as acute or chronic (principal); R05 Cough; Z87.891 Personal history of nicotine dependence; Z86.718 Personal history of other venous thrombosis and embolism; I10 Essential (primary) hypertension; R50.9 Fever, unspecified; Z85.46 Personal history of malignant neoplasm of prostate; G20 Parkinson's disease
CPT/HCPCS: 36415; 71045; 80053; 81003; 82550; 83605; 84484; 85025; 85384; 85610; 85652; 85730; 86140; 87040; 96365; 99284; J2543

== ENCOUNTER 2019-05-10 00:02 | Emergency (ER) | payer MEDICARE ==
[2019-05-10] MEDS ORDERED: NS 0.9% 1000 ML** 1,000 ML IV ONE (01:02)
[2019-05-10] MEDS ORDERED: Piperacillin/Tazobac ADVAN(*) 3.375 GM in NS 0.9% 100 ML* 100 ML IVPB ONE (01:03)
[2019-05-10 01:28] LABS: ABS Basophils 0.1 10^3/ul (0-0.2); ABS Lymphocytes 0.7 10^3/ul (1.0-4.8); ABS Neutrophils 18.9 10^3/ul (1.5-7.7); Eosinophil % 0.1 %; Hematocrit 36 % (42-52); Hemoglobin 11.6 g/dL (14.0-18.0); Lymphocyte % 3.4 %; Mean Corpuscular HGB Conc 33 g/dL (31-36); Mean Corpuscular Hemoglobin 27 pg (27-31); Mean Corpuscular Volume 82 fL (80-94); Mean Platelet Volume 7.9 fL (7.4-10.4); Platelet Count 287 10^3/uL (150-450); Red Blood Count 4.34 10^6 /uL (4.18-5.48); Red Cell Distribution Width 15 % (10-15); White Blood Count 20.7 10^3/uL (3.5-10.8)
[2019-05-10 01:40] LABS: Albumin 3.6 g/dL (3.2-5.2); Albumin/Globulin Ratio 1.1 (1-3); BUN/Creatinine Ratio 19.6 (8-20); C Reactive Protein 12.59 mg/L (<8.01); Calcium 8.9 mg/dL (8.6-10.3); EGFR African American 88.2 (>60); EGFR Non-African American 72.9 (>60); Globulin 3.4 g/dL (2-4); Potassium 3.9 mmol/L (3.5-5.0); Total Bilirubin 1.3 mg/dL (0.2-1.0)
[2019-05-10] MEDS ORDERED: Ondansetron INJ* 2 MG/ML VIAL IV ONE (01:46)
--- NOTE | 2019-05-10 01:53 | ED ---
GI/ HPI - HPI Summary HPI Summary: 89-year-old male presents from longterm with vomiting today. per longterm he aspirated on the vomiting and now has a fever. Had fever of 100 there. He is on comfort care only. Has a history dementia so history is limited from the patient. When asked if he has shortness of breath or chest pain he says no. When asked if he has abd pain he says no. Spoke with daughter who wants him to have IV fluids antibiotics and basic laboratory and chest x-ray but nothing else. Daughter states the patient under no circumstances will be admitted. Has a history of gallbladder issues and daughter states has been given antibiotics which helps settle gallbladder down. Daughter does not want a CT scan of abdomen. Daughter does not want gallbladder treated beside antibiotics. level 5 cavet due to dementia - History of Current Complaint Chief Complaint: EDNauseaVomitDiarrh Time Seen by Provider: 05/10/19 00:43 Stated Complaint: FEVER PER EMS Pain Intensity: 0 - Additional Pertinent History Primary Care Physician: [id number] - Allergy/Home Medications Allergies/Adverse Reactions: Allergies Allergy/AdvReac Type Severity Reaction Status Date / Time lisinopril Allergy Coughing Verified 05/10/19 00:49 PMH/Surg Hx/FS Hx/Imm Hx Endocrine/Hematology History: Reports: Hx Diabetes Cardiovascular History: Reports: Hx Deep Vein Thrombosis, Hx Hypertension Denies: Hx Hypercholesterolemia, Hx Pacemaker/ICD History: Reports: Other Problems/Disorders - prostate ca, radiation Musculoskeletal History: Reports: Hx Back Problems - Fusion L4-S1, Other Musculoskeletal History - L total knee replacemtn, fusion S1, L4, L5 Denies: Hx Scoliosis Sensory History: Denies: Hx Contacts or Glasses, Hx Hearing Aid Opthamlomology History: Denies: Hx Contacts or Glasses Neurological History: Reports: Hx Dementia, Other Neuro Impairments/Disorders - alzheimers, Parkinson's Psychiatric History: Reports: Other Psychiatric Issues/Disorders - alzheimers Denies: Hx Panic Disorder - Cancer History Cancer Type, 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, CATARACT Infectious Disease History: Unable to Obtain/Confirm Infectious Disease History: Denies: Traveled Outside the [place] in Last 30 Days - Family History Known Family History: Positive: Cardiac Disease, Diabetes - Social History Alcohol Use: None Hx Substance Use: No Substance Use Type: Reports: None Hx Tobacco Use: Yes Smoking Status (MU): Former Smoker Have You Smoked in the Last Year: No Review of Systems Positive: Fever Negative: Cough Positive: Vomiting, Nausea All Other Systems Reviewed And Are Negative: Yes Physical Exam Triage Information Reviewed: Yes Vital Signs On Initial Exam: Initial Vitals Pulse Pulse Ox 130 93 05/10/19 00:08 05/10/19 00:08 Vital Signs Reviewed: Yes Appearance: Positive: Well-Appearing Skin: Positive: Warm, Dry Head/Face: Positive: Normal Head/Face Inspection Eyes: Positive: Normal, Conjunctiva Clear ENT: Positive: Pharynx normal Respiratory/Lung Sounds: Positive: Clear to Auscultation, Breath Sounds Present Cardiovascular: Positive: Normal, RRR Abdomen Description: Positive: Nontender, Soft Bowel Sounds: Positive: Present Musculoskeletal: Positive: Normal Neurological: Positive: Normal Psychiatric: Positive: Normal Diagnostics - Vital Signs Vital Signs Temp Pulse Resp BP Pulse Ox 05/10/19 00:42 124 12 99/61 92 05/10/19 00:39 125 7 87/69 96 05/10/19 00:10 99.5 F 130 9 132/70 92 05/10/19 00:08 130 93 - Laboratory Lab Results: Lab Results 05/10/19 05/10/19 05/10/19 Range/Units 01:12 01:12 01:12 WBC 20.7 H (3.5-10.8) 10^3/uL RBC 4.34 (4.18-5.48) 10^6 /uL Hgb 11.6 L (14.0-18.0) g/dL Hct 36 L (42-52) % MCV 82 (80-94) fL MCH 27 (27-31) pg MCHC 33 (31-36) g/dL RDW 15 (10-15) % Plt Count 287 (150-450) 10^3/uL MPV 7.9 (7.4-10.4) fL Neut % (Auto) 91.2 % Lymph % (Auto) 3.4 % [place] % (Auto) 5.0 % Eos % (Auto) 0.1 % Baso % (Auto) 0.3 % Absolute Neuts (auto) 18.9 H (1.5-7.7) 10^3/ul Absolute Lymphs (auto) 0.7 L (1.0-4.8) 10^3/ul Absolute Monos (auto) 1.0 H (0-0.8) 10^3/ul Absolute Eos (auto) 0.0 (0-0.6) 10^3/ul Absolute Basos (auto) 0.1 (0-0.2) 10^3/ul Absolute Nucleated RBC 0.0 10^3/ul Nucleated RBC % 0.0 Sodium 136 (135-145) mmol/L Potassium 3.9 (3.5-5.0) mmol/L Chloride 103 (101-111) mmol/L Carbon Dioxide 24 (22-32) mmol/L Anion Gap 9 (2-11) mmol/L BUN 19 (6-24) mg/dL Creatinine 0.97 (0.67-1.17) mg/dL Est GFR ( Amer) 88.2 (>60) Est GFR (Non-Af Amer) 72.9 (>60) BUN/Creatinine Ratio 19.6 (8-20) Glucose 280 H (70-100) mg/dL Lactic Acid 1.5 (0.5-2.0) mmol/L Calcium 8.9 (8.6-10.3) mg/dL Total Bilirubin 1.30 H (0.2-1.0) mg/dL AST 662 H (13-39) U/L ALT 356 H (7-52) U/L Alkaline Phosphatase 265 H (34-104) U/L C-Reactive Protein 12.59 H (<8.01) mg/L Total Protein 7.0 (6.4-8.9) g/dL Albumin 3.6 (3.2-5.2) g/dL Globulin 3.4 (2-4) g/dL Albumin/Globulin Ratio 1.1 (1-3) Result Diagrams: 05/10/19 01:12 05/10/19 01:12 Lab Statement: Any lab studies that have been ordered have been reviewed, and results considered in the medical decision making process. - Radiology chest Radiology Interpretation Completed By: ED Physician Summary of Radiographic Findings: no pneumonia Re-Evaluation - Re-Evaluation First Eval Re-Evaluation Time: 02:51 Comment: no vomiting while in ED GIGU Course/Dx - Course Course Of Treatment: 89-year-old male presents from longterm with vomiting today. per longterm he aspirated on the vomiting and now has a fever. Had fever of 100 there. He is on comfort care only. Has a history dementia so history is limited from the patient. When asked if he has shortness of breath or chest pain he says no. When asked if he has abd pain he says no. Spoke with daughter who wants him to have IV fluids antibiotics and basic laboratory and chest x-ray but nothing else. Daughter states the patient under no circumstances will be admitted. Has a history of gallbladder issues and daughter states has been given antibiotics which helps settle gallbladder down. Daughter does not want a CT scan of abdomen. Daughter does not want gallbladder treated beside antibiotics. On exam has a nontender abdomen. Lungs some rhonchi noted. Chest x-ray read as normal. Gave doses sZosyn and Zofran and fluids here. We'll discharge with Augmentin and Zofran as daughter wants to further work up and MOLST states same. - Diagnoses Differential Diagnoses - Male: Gall Bladder Disease, Sepsis, Other - aspiration pneumonia Provider Diagnoses: Vomiting, Aspiration into airway Discharge - Sign-Out/Discharge Documenting (check all that apply): Patient Departure - Discharge Plan Condition: Stable Disposition: SNF FACILITY Prescriptions: Amoxicillin/Clavulanate TAB* [Augmentin TAB 875*] 875 mg PO BID #10 tab Ondansetron ODT TAB* [Zofran 4 MG Odt TAB*] 4 mg PO Q6H PRN #20 tab.odt PRN Reason: Nausea Patient Education Materials: Acute Nausea and Vomiting (ED) Referrals: Mohinder Ordaz MD [Primary Care Provider] - Additional Instructions: augmentin twice a day for 5 days zofran every 6 hours as needed for nausea follow up with primary within 5 days Return to ED if develop any new or worsening symptoms - Billing Disposition and Condition Condition: STABLE Disposition: Nursing Home Facility
[2019-05-10 02:03] LABS: Urine Appearance Cloudy; Urine Bilirubin Negative (Negative); Urine Blood Negative (Negative); Urine Color Yellow; Urine Glucose Negative (Negative); Urine Ketones Trace (Negative); Urine Nitrite Negative (Negative); Urine Protein Negative (Negative); Urine Specific Gravity 1.017 (1.010-1.030); Urine Urobilinogen Negative (Negative)
[2019-05-10 03:08] VITALS: BP 111/50
== END 2019-05-10 03:20 ==
LOC: ED 00:02
DX: R11.10 Vomiting, unspecified (principal); T17.918A Gastric contents in respiratory tract, part unspecified causing other injury, initial encounter; X58.XXXA Exposure to other specified factors, initial encounter; Y92.129 Unspecified place in nursing home as the place of occurrence of the external cause; Z88.8 Allergy status to other drugs, medicaments and biological substances; E11.9 Type 2 diabetes mellitus without complications; I10 Essential (primary) hypertension; Z87.891 Personal history of nicotine dependence
CPT/HCPCS: 36415; 71045; 80053; 81003; 83605; 85025; 86140; 96365; 96366; 96375; 99284; J2405; J2543